=== PATIENT | female | born 1970 | race Two or more races ===

== ENCOUNTER 2020-06-07 14:09 | Outpatient (REF) | payer MEDICAID, SELFPAY ==
--- NOTE | 2020-06-07 15:30 | CT_ITS ---
EXAMINATION: CT ABDOMEN AND PELVIS WITHOUT CONTRAST CLINICAL INFORMATION: Left flank pain. Evaluate for stone. COMPARISON: Previous abdominal ultrasound August 2014 TECHNIQUE: Multidetector volumetric imaging was performed from the superior aspect of the liver through the pubic symphysis. Sagittal and coronal reformatted images were obtained on the technologist's workstation. This CT examination was performed using dose optimization techniques as appropriate, variously including the following: *Automated exposure control *Adjustment of mA and/or kV according to patient size (this includes techniques or standardized protocols for targeted exams where dose is matched to indication/reason for exam; i.e. extremities or head) *Use of iterative reconstruction technique DLP: 879 mGy-cm FINDINGS: LUNG BASES: The visualized lung bases are unremarkable. LIVER, GALLBLADDER, AND BILIARY TREE: The liver is slightly enlarged, right lobe measuring 21 cm in length. The liver is slightly low in attenuation suggestive of fatty infiltration. The liver is normal in contour. No focal liver lesion or biliary duct dilatation is seen. The gallbladder is unremarkable with no evidence of radiopaque gallstones, gallbladder wall thickening, or obvious pericholecystic inflammatory changes. PANCREAS: Unremarkable. SPLEEN: Unremarkable. ADRENAL GLANDS: Unremarkable. KIDNEYS AND URETERS: The kidneys are normal in size, shape, and attenuation. No hydronephrosis, hydroureter, or calculi seen. No perinephric stranding. BLADDER: Unremarkable. GASTROINTESTINAL TRACT: The small and large bowel are unremarkable. The appendix is unremarkable. ABDOMINAL WALL: There is a small umbilical hernia containing fat. LYMPH NODES: Normal. VASCULAR: Unremarkable. PELVIC VISCERA: Unremarkable. OSSEOUS STRUCTURES: Unremarkable. CT/CT abdomen pelvis wo con IMPRESSION: Slightly enlarged fatty liver. No stone seen.
== END 2020-06-07 14:10 | disposition home or self-care (01) ==
LOC: HO.CT 14:09
PROVIDERS: PCP Family Medicine; Visit Provider Nurse Practitioner Family
DX: R10.0 Acute abdomen (principal)
CPT/HCPCS: 74176

== ENCOUNTER 2020-10-26 15:21 | Outpatient (REF) | payer MEDICAID, SELFPAY | END 2020-10-26 15:22 | disposition home or self-care (01) | LOC: HO.HOSX 15:21 | PROVIDERS: Visit Provider Orthopaedic Surgery | DX: Z13.89 Encounter for screening for other disorder (principal) ==

== ENCOUNTER 2020-12-08 20:37 | Emergency (ER) | payer MEDICAID, SELFPAY ==
--- NOTE | ~2020-12-08 | CT_ITS ---
EXAMINATION: CT ANGIOGRAM OF THE CHEST WITH AND WITHOUT CONTRAST (CT PULMONARY ANGIOGRAM FOR PE) CLINICAL INFORMATION: Reason for Exam SOB, chest pain, elevated DDIMER COMPARISON: None TECHNIQUE: Prior to contrast administration, noncontrast localization images were obtained. Subsequently, multidetector volumetric imaging was performed from the thoracic inlet to below the diaphragms following the administration of 65 mL Omnipaque 350 intravenous contrast. No contrast reaction reported Sagittal, coronal, and MIP oblique sagittal reformatted images were obtained on the CT workstation, uploaded to PACS, and reviewed. This CT examination was performed using dose optimization techniques as appropriate, variously including the following: *Automated exposure control *Adjustment of mA and/or kV according to patient size (this includes techniques or standardized protocols for targeted exams where dose is matched to indication/reason for exam; i.e. extremities or head) *Use of iterative reconstruction technique Total exam dose-length product 593 mGy-cm FINDINGS: QUALITY OF STUDY/CONTRAST BOLUS: Satisfactory. PULMONARY ARTERIES: No central or segmental pulmonary emboli. THORACIC AORTA: No aneurysm or dissection. LUNG: No focal consolidation, nodules or masses. The central airways are patent. PLEURA: No pleural effusion or pneumothorax. MEDIASTINUM: Normal heart size. No pericardial effusion. No hilar or mediastinal lymphadenopathy. No evidence of septal bowing or right heart strain. CHEST WALL/AXILLA: No axillary or internal mammary lymphadenopathy. OSSEOUS STRUCTURES: No acute or suspicious osseous abnormality. UPPER ABDOMEN: Unremarkable. No reflux of contrast into the hepatic veins to suggest elevated right heart pressures. CT/CT angio chest PE protocol IMPRESSION: No pulmonary embolism or other acute intrathoracic abnormality. VTE: negative
--- NOTE | ~2020-12-08 | XR_ITS ---
EXAMINATION: XR CHEST CLINICAL INFORMATION: Chest pain COMPARISON: Chest 08/25/2015 TECHNIQUE: Frontal view of the chest was obtained. FINDINGS: No significant abnormality is noted involving the heart, lungs, mediastinum, bony thorax or soft tissues. XR/XR chest 1V IMPRESSION: Unremarkable chest examination. No change from 08/25/2015
--- NOTE | 2020-12-08 20:38 | ECG_ITS ---
Test Reason : CHEST PAIN Blood Pressure : / mmHG Vent. Rate : 105 BPM Atrial Rate : 105 BPM P-R Int : 142 ms QRS Dur : 086 ms QT Int : 330 ms P-R-T Axes : 035 026 007 degrees QTc Int : 436 ms Sinus tachycardia Otherwise normal ECG When compared with ECG of 21-SEP-2010 14:13, No significant change was found Referred By: Generic ED Physician Electronically Signed By:ARIC DENSON MD
[2020-12-08 20:54] LABS: MANUAL DIFF FLAG NO
[2020-12-08 20:56] VITALS: BP 122/84; PULSE 109; RESP 18; TEMP 36.7; O2SAT 98; BMI 52.5
[2020-12-08 20:58] LABS: Basophils Percent Auto 0.6 % (0-2); Eosinophils Absolute Auto 0.2 X10*3/uL (0.0-0.4); Eosinophils Percent Auto 3.4 % (0-4); Hematocrit 39.3 % (37-47); Hemoglobin 12.1 g/dl (12.0-16.0); Imm Gran Abs Auto 0.01 X10*3/uL (0.00-0.03); Imm Gran Pct Auto 0.2 % (0.0-0.4); Lymphocytes Absolute Auto 1.3 X10*3/uL (1.2-4.9); Lymphocytes Percent Auto 26.5 % (20-40); Mean Corpuscular HGB Conc 30.8 g/dl (31.0-35.0); Mean Corpuscular Hemoglobin 25.8 pg (27.0-33.0); Mean Corpuscular Volume 83.8 fL (80-98); Mean Platelet Volume 10.1 fL (9.4-12.3); Monocytes Absolute Auto 0.5 X10*3/uL (0.1-1.2); Monocytes Percent Auto 10.4 % (2-11); Neutrophils Absolute Auto 2.8 X10*3/uL (2.0-8.3); Neutrophils Percent Auto 58.9 % (45-73); Platelet Count 284 X10*3/uL (160-400); Red Blood Count 4.69 X10*6/uL (4.20-5.50); Red Cell Distribution Width 14.5 % (11.0-16.0); White Blood Count 4.7 X10*3/uL (4.8-10.8)
[2020-12-08 21:27] LABS: Anion Gap 14 (12-20); Blood Urea Nitrogen 16 mg/dL (9-16); Calcium 9.5 mg/dL (8.4-10.2); Carbon Dioxide 24 mmol/L (22-29); Chloride 103 mmol/L (96-108); Creatinine Clr Calc Pharmacy 90.9; Estimated Glomerular Filt Rate > 60; Glucose Random 250 mg/dL (60-115); Potassium 4.4 mmol/L (3.3-5.1); Sodium 137 mmol/L (135-145)
[2020-12-08 21:35] LABS: Troponin-I High Sensitivity < 3.5 ng/L (<3.5-17.0)
[2020-12-08 22:32] VITALS: BP 178/103; PULSE 111; RESP 20; O2SAT 96
[2020-12-09 00:42] VITALS: BP 142/84; PULSE 102; RESP 16; O2SAT 96
--- NOTE | 2020-12-09 00:58 | ED.CHESTPAIN ---
HPI - Chest Pain General Chief Complaint: Chest Pain <HANY Santos Last Filed: 12/09/20 01:53> Stated Complaint: chest pain <HANY Santos Last Filed: 12/09/20 01:53> Time Seen by Provider: 12/09/20 00:56 <HANY Santos Last Filed: 12/09/20 01:53> Source: patient <HANY Santos Last Filed: 12/09/20 01:53> Mode of arrival: ambulatory <HANY Santos Last Filed: 12/09/20 01:53> Limitations: no limitations <HANY Santos Last Filed: 12/09/20 01:53> History of Present Illness HPI narrative: 50 y/o female with history of morbid obesity, poorly controlled DM on insulin with polyneuropathy, HTN, asthma, arthritis who presents to the ED from [facility] with VERA and intermittent central non-radiating chest pain x2 weeks. She has some mild SOB at rest as well. She also reports intermittent headaches and dizziness. Her blood pressure has been elevated at home, as high as 180/120. She is compliant with her Lisinopril. She states she was supposed to be started on another agent but it was never sent to her pharmacy. She also reports her glucose has been 200-300 persistently at home despite compliance with Metformin and insulin. She has not been compliant with a diabetic diet and continues to be very overweight. She denies fever, chills, N/V, abdominal pain, leg pain. She had COVID last February and is now fully vaccinated. <HANY Santos - Last Filed: 12/09/20 01:53> MD complaint: chest pain <HANY Santos Last Filed: 12/09/20 01:53> Pertinent past history: asthma <HANY Santos - Last Filed: 12/09/20 01:53> Onset (ago): week(s) (2) <HANY Santos Last Filed: 12/09/20 01:53> Timing of current episode: episodic <HANY Santos Last Filed: 12/09/20 01:53> Prior episodes: Yes <HANY Santos - Last Filed: 12/09/20 01:53> Onset: during exertion <HANY Santos - Last Filed: 12/09/20 01:53> Pain location: substernal <HANY Santos Last Filed: 12/09/20 01:53> Pain radiation: none <HANY Santos - Last Filed: 12/09/20 01:53> Severity: moderate <HANY Santos - Last Filed: 12/09/20 01:53> Quality: aching <HANY Santos - Last Filed: 12/09/20 01:53> Relieving factors: rest <HANY Santos Last Filed: 12/09/20 01:53> Exacerbating factors: exertion and movement <HANY Santos - Last Filed: 12/09/20 01:53> Associated symptoms: dyspnea <HANY Santos - Last Filed: 12/09/20 01:53> Treatment prior to arrival: none <HANY Santos - Last Filed: 12/09/20 01:53> Risk Factors Coronary artery disease risk factors: diabetes, hyperlipidemia and hypertension <HANY Santos - Last Filed: 12/09/20 01:53> Thoracic aortic dissection risk factors: none <HANY Santos - Last Filed: 12/09/20 01:53> Pulmonary embolism risk factors: morbid obesity <HANY Santos Last Filed: 12/09/20 01:53> Related Data On Oral Contraceptives: No <HANY Santos - Last Filed: 12/09/20 01:53> Allergies/Adverse Reactions: Allergies Allergy/AdvReac Type Severity Reaction Status Date / Time No Known Allergies Allergy Verified 12/08/20 21:05 <HANY Santos - Last Filed: 12/09/20 01:53> Review of Systems Review of Systems: Constitutional: No Fever, No Chills ENT/Mouth: No sore throat, No Rhinorrhea, No Swallowing Difficulty Eyes: No Eye Pain, No Swelling, No Redness Cardiovascular: + Chest Pain, + SOB, No Orthopnea, No Edema Respiratory: No Cough, No Sputum, No Wheezing, + dyspnea Gastrointestinal: No Nausea, No Vomiting, No Diarrhea, No abdominal Pain Genitourinary: No Dysuria, No Urinary Frequency, No Hematuria Musculoskeletal: No joint pain, No Myalgias Skin: No Skin Lesions, No rash Neuro: No Weakness, No Numbness, + Dizziness, + Headache Psych: No Anxiety/Panic, No Depression Heme/Lymph: No Bruising, No Lymphadenopathy Endocrine: No Polyuria, No Polydipsia <HANY Santos - Last Filed: 12/09/20 01:53> [facility] Past Medical History Attestation statement: The following information was validated with the patient. <HANY Santos - Last Filed: 12/09/20 01:53> Medical History: Medical History Anxiety Arthritis associated with diabetes Asthma Carpal tunnel syndrome on both sides Depression Fibromyalgia Gastritis GERD (gastroesophageal reflux disease) Herniated disc HTN (hypertension) Migraine Sleep apnea Urinary incontinence <HANY Santos - Last Filed: 12/09/20 01:53> Surgical History: Surgical History (Updated 12/08/20 @ 21:04 by Kourtney Gomez) History of tubal ligation <HANY Santos - Last Filed: 12/09/20 01:53> Social History Social History: Social History Alcohol intake: never Smoking Status: Never smoker Use of substances other than those prescribed or required for medical reasons: No Advance Directives: No Advance Directives Information Provided: No Patient : No <HANY Santos - Last Filed: 12/09/20 01:53> Physical Exam Vital Signs: Vital Signs: Last Vital Signs Temp 98.0 F 12/08/20 20:56 Pulse 102 H 12/09/20 00:42 Resp 16 12/09/20 00:42 BP 142/84 H 12/09/20 00:42 Pulse Ox 96 12/09/20 00:42 Body Mass Index 52.5 Appearance: Alert. Oriented X3. No acute distress. Eyes: Pupils equal, round and reactive to light. ENT: Pharynx normal. Neck: Normal inspection. Neck supple. CVS: Normal heart rate and rhythm. Pulses normal. No chest wall tenderness Respiratory: No respiratory distress. Breath sounds diminished at the bases but otherwise clear Abdomen: Obese, Soft and nontender. +BS x4 Skin: Skin warm and dry. Normal skin color. Normal skin turgor. No rashes. Extremities: No lower extremity edema. Negative Tatum's sign. Neuro: Oriented X 3. No motor deficit. No sensory deficit. <HANY Santos - Last Filed: 12/09/20 01:53> Vital Signs: Last Vital Signs Temp 98.0 F 12/08/20 20:56 Pulse 102 H 12/09/20 00:42 Resp 16 12/09/20 00:42 BP 142/84 H 12/09/20 00:42 Pulse Ox 96 12/09/20 00:42 Body Mass Index 52.5 <Huong Lawson MD - Last Filed: 12/09/20 03:35> Course Course Course Narrative: 50 y/o female with multiple comorbidities presenting with SOB and chest pain x2 weeks along with high blood pressure, headaches, and dizziness. Tachycardic to 109 on arrival with BP 120-140's systolic. Her EKG is unremarkbale and troponin is negative. Mild current chest pain and SOB at rest at this time, appears comfortable. No distress. Will check DDIMER as there is concern for PE. BNP added as well. Dispo pending results. <HANY Santos - Last Filed: 12/09/20 01:53> I received sign-out from HANY Boo. Patient has no pain at rest, only when she presses on her chest. Patient's pain is likely musculoskeletal CT scan for PE is negative. Patient is being discharged home, patient is to follow-up with her primary care physician for <Huong Lawson MD - Last Filed: 12/09/20 03:35> Reevaluation(s) Reevaluation #1: DDIMER elevated 831. Will proceed with CTA chest to r/o PE. Will also get COVID swab, liklihood is low given she is fully vaccinated. Signed out to Dr. Lawson who will f/u results. <HANY Santos - Last Filed: 12/09/20 01:53> MDM - Chest Pain Medical Records Data Attestation: I reviewed the patient's medical records. <HANY Santos - Last Filed: 12/09/20 01:53> Lab Data Attestation: I reviewed the patient's lab results. <HANY Santos - Last Filed: 12/09/20 01:53> Result diagrams: : 12/08/20 20:49 12/08/20 20:49 <HANY Santos - Last Filed: 12/09/20 01:53> Labs: Lab Results 12/08/20 12/08/20 12/08/20 Range/Units 20:49 20:49 20:49 WBC 4.7 L (4.8-10.8) X10*3/uL RBC 4.69 (4.20-5.50) X10*6/uL Hgb 12.1 (12.0-16.0) g/dl Hct 39.3 (37-47) % MCV 83.8 (80-98) fL MCH 25.8 L (27.0-33.0) pg MCHC 30.8 L (31.0-35.0) g/dl RDW 14.5 (11.0-16.0) % Plt Count 284 (160-400) X10*3/uL MPV 10.1 (9.4-12.3) fL Immature Gran % (Auto) 0.2 (0.0-0.4) % Neut % (Auto) 58.9 (45-73) % Lymph % (Auto) 26.5 (20-40) % [place] % (Auto) 10.4 (2-11) % Eos % (Auto) 3.4 (0-4) % Baso % (Auto) 0.6 (0-2) % Lymph # (Auto) 1.3 (1.2-4.9) X10*3/uL [place] # (Auto) 0.5 (0.1-1.2) X10*3/uL Eos # (Auto) 0.2 (0.0-0.4) X10*3/uL Baso # (Auto) 0.0 (0.0-0.2) X10*3/uL Abs Immat Gran (auto) 0.01 (0.00-0.03) X10*3/uL Absolute Neuts (auto) 2.8 (2.0-8.3) X10*3/uL Absolute Nucleated RBC 0.000 (0.0-0.012) X10*3/uL Nucleated RBC % (auto) 0.0 (0.0-0.2) /100WBC D-Dimer 831 NG/ML Hold Blue Top SEE NOTE Sodium 137 (135-145) mmol/L Potassium 4.4 (3.3-5.1) mmol/L Chloride 103 (96-108) mmol/L Carbon Dioxide 24 (22-29) mmol/L Anion Gap 14 (12-20) BUN 16 (9-16) mg/dL Creatinine 0.87 (0.5-1.4) mg/dL Estim Creat Clear Calc 90.9 Estimated GFR > 60 Random Glucose 250 H (60-115) mg/dL Calcium 9.5 (8.4-10.2) mg/dL Troponin I High Sens (<3.5-17.0) ng/L COVID-19 (ANGI) (Negative) COVID-19 Clin Com 12/08/20 12/09/20 Range/Units 20:49 01:35 WBC (4.8-10.8) X10*3/uL RBC (4.20-5.50) X10*6/uL Hgb (12.0-16.0) g/dl Hct (37-47) % MCV (80-98) fL MCH (27.0-33.0) pg MCHC (31.0-35.0) g/dl RDW (11.0-16.0) % Plt Count (160-400) X10*3/uL MPV (9.4-12.3) fL Immature Gran % (Auto) (0.0-0.4) % Neut % (Auto) (45-73) % Lymph % (Auto) (20-40) % [place] % (Auto) (2-11) % Eos % (Auto) (0-4) % Baso % (Auto) (0-2) % Lymph # (Auto) (1.2-4.9) X10*3/uL [place] # (Auto) (0.1-1.2) X10*3/uL Eos # (Auto) (0.0-0.4) X10*3/uL Baso # (Auto) (0.0-0.2) X10*3/uL Abs Immat Gran (auto) (0.00-0.03) X10*3/uL Absolute Neuts (auto) (2.0-8.3) X10*3/uL Absolute Nucleated RBC (0.0-0.012) X10*3/uL Nucleated RBC % (auto) (0.0-0.2) /100WBC D-Dimer NG/ML Hold Blue Top Sodium (135-145) mmol/L Potassium (3.3-5.1) mmol/L Chloride (96-108) mmol/L Carbon Dioxide (22-29) mmol/L Anion Gap (12-20) BUN (9-16) mg/dL Creatinine (0.5-1.4) mg/dL Estim Creat Clear Calc Estimated GFR Random Glucose (60-115) mg/dL Calcium (8.4-10.2) mg/dL Troponin I High Sens < 3.5 (<3.5-17.0) ng/L COVID-19 (ANGI) Negative (Negative) COVID-19 Clin Com See Note <HANY Santos - Last Filed: 12/09/20 01:53> Lab Results 12/08/20 12/08/20 12/08/20 Range/Units 20:49 20:49 20:49 WBC 4.7 L (4.8-10.8) X10*3/uL RBC 4.69 (4.20-5.50) X10*6/uL Hgb 12.1 (12.0-16.0) g/dl Hct 39.3 (37-47) % MCV 83.8 (80-98) fL MCH 25.8 L (27.0-33.0) pg MCHC 30.8 L (31.0-35.0) g/dl RDW 14.5 (11.0-16.0) % Plt Count 284 (160-400) X10*3/uL MPV 10.1 (9.4-12.3) fL Immature Gran % (Auto) 0.2 (0.0-0.4) % Neut % (Auto) 58.9 (45-73) % Lymph % (Auto) 26.5 (20-40) % [place] % (Auto) 10.4 (2-11) % Eos % (Auto) 3.4 (0-4) % Baso % (Auto) 0.6 (0-2) % Lymph # (Auto) 1.3 (1.2-4.9) X10*3/uL [place] # (Auto) 0.5 (0.1-1.2) X10*3/uL Eos # (Auto) 0.2 (0.0-0.4) X10*3/uL Baso # (Auto) 0.0 (0.0-0.2) X10*3/uL Abs Immat Gran (auto) 0.01 (0.00-0.03) X10*3/uL Absolute Neuts (auto) 2.8 (2.0-8.3) X10*3/uL Absolute Nucleated RBC 0.000 (0.0-0.012) X10*3/uL Nucleated RBC % (auto) 0.0 (0.0-0.2) /100WBC D-Dimer 831 NG/ML Hold Blue Top SEE NOTE Sodium 137 (135-145) mmol/L Potassium 4.4 (3.3-5.1) mmol/L Chloride 103 (96-108) mmol/L Carbon Dioxide 24 (22-29) mmol/L Anion Gap 14 (12-20) BUN 16 (9-16) mg/dL Creatinine 0.87 (0.5-1.4) mg/dL Estim Creat Clear Calc 90.9 Estimated GFR > 60 Random Glucose 250 H (60-115) mg/dL Calcium 9.5 (8.4-10.2) mg/dL Troponin I High Sens (<3.5-17.0) ng/L COVID-19 (ANGI) (Negative) COVID-19 Clin Com 12/08/20 12/09/20 Range/Units 20:49 01:35 WBC (4.8-10.8) X10*3/uL RBC (4.20-5.50) X10*6/uL Hgb (12.0-16.0) g/dl Hct (37-47) % MCV (80-98) fL MCH (27.0-33.0) pg MCHC (31.0-35.0) g/dl RDW (11.0-16.0) % Plt Count (160-400) X10*3/uL MPV (9.4-12.3) fL Immature Gran % (Auto) (0.0-0.4) % Neut % (Auto) (45-73) % Lymph % (Auto) (20-40) % [place] % (Auto) (2-11) % Eos % (Auto) (0-4) % Baso % (Auto) (0-2) % Lymph # (Auto) (1.2-4.9) X10*3/uL [place] # (Auto) (0.1-1.2) X10*3/uL Eos # (Auto) (0.0-0.4) X10*3/uL Baso # (Auto) (0.0-0.2) X10*3/uL Abs Immat Gran (auto) (0.00-0.03) X10*3/uL Absolute Neuts (auto) (2.0-8.3) X10*3/uL Absolute Nucleated RBC (0.0-0.012) X10*3/uL Nucleated RBC % (auto) (0.0-0.2) /100WBC D-Dimer NG/ML Hold Blue Top Sodium (135-145) mmol/L Potassium (3.3-5.1) mmol/L Chloride (96-108) mmol/L Carbon Dioxide (22-29) mmol/L Anion Gap (12-20) BUN (9-16) mg/dL Creatinine (0.5-1.4) mg/dL Estim Creat Clear Calc Estimated GFR Random Glucose (60-115) mg/dL Calcium (8.4-10.2) mg/dL Troponin I High Sens < 3.5 (<3.5-17.0) ng/L COVID-19 (ANGI) Negative (Negative) COVID-19 Clin Com See Note <Huong Lawson MD - Last Filed: 12/09/20 03:35> ECG Data ECG #1: Attestation: I personally reviewed and interpreted this ECG as follows: <HANY Santos - Last Filed: 12/09/20 01:53> ECG interpretation date: 12/09/20 <HANY Santos - Last Filed: 12/09/20 01:53> ECG interpretation time: 01:24 <HANY Santos Last Filed: 12/09/20 01:53> Prior ECG tracings: available for review <HANY Santos - Last Filed: 12/09/20 01:53> Interpretation: sinus tachycardia, HR 105 bpm, normal TN inteval, normal QRS, isolated t-wave inversions in lead III, no ST segment elevations. no significant changes from prior EKG in 2010 <HANY Santos - Last Filed: 12/09/20 01:53> Scores Heart Score History: -1- moderately suspicious <HANY Santos - Last Filed: 12/09/20 01:53> ECG: -0- normal <HANY Santos Last Filed: 12/09/20 01:53> Age: -1- >45 - <65 <HANY Santos Last Filed: 12/09/20 01:53> Risk factory: -2- 3 or more risk factors or treated atherosclerosis <HANY Santos - Last Filed: 12/09/20 01:53> Troponin: -0- < or = normal limit <HANY Santos - Last Filed: 12/09/20 01:53> Score: 4 <HANY Santos - Last Filed: 12/09/20 01:53> Risk: 16.6% <HANY Santos - Last Filed: 12/09/20 01:53> Wells PE Heart rate > 100 p/min: 1.5 <HANY aSntos - Last Filed: 12/09/20 01:53> Score: 1.5 <HANY Santos - Last Filed: 12/09/20 01:53> 2-tier Risk: unlikely risk (5%) <HANY Santos - Last Filed: 12/09/20 01:53> 3-tier Risk: low risk (3.4%) <HANY Santos - Last Filed: 12/09/20 01:53> Discharge Plan Discharge Clinical Impression: Dyspnea, Atypical chest pain <HANY Santos - Last Filed: 12/09/20 01:53> Patient Disposition: Home, Self-Care <HANY Santos - Last Filed: 12/09/20 01:53> Instructions: Chest Pain (ED) <HANY Santos - Last Filed: 12/09/20 01:53> Additional Instructions: Please follow-up with your primary care physician tomorrow. Is likely that you will need a stress test if you continue having the symptoms. If you have any worsening or new symptoms, please return to the emergency room or call 911 <HANY Santos - Last Filed: 12/09/20 01:53>
[2020-12-09 01:13] LABS: D Dimer 831 NG/ML
[2020-12-09 01:55] LABS: COVID-19 Test Negative (Negative); IDNOW Serial# 9DD0AD1C
[2020-12-09] MEDS: iohexoL 350 MG/ML 100 ML INFUS..BTL 65 ML IV (02:12)
== END 2020-12-09 03:44 | disposition home or self-care (01) ==
PROVIDERS: Physician Assistant; Emergency Provider Emergency Medicine; PCP Family Medicine
DX: R06.00 Dyspnea, unspecified (principal); R07.89 Other chest pain; Z20.822 Contact with and (suspected) exposure to COVID-19; J45.909 Unspecified asthma, uncomplicated; I10 Essential (primary) hypertension; E11.9 Type 2 diabetes mellitus without complications; Z79.4 Long term (current) use of insulin
CPT/HCPCS: 36415; 71045; 71275; 80048; 84484; 85025; 85379; 87635; 93005; 99284; Q9967

== ENCOUNTER 2020-12-21 07:40 | Outpatient (REF) | payer MEDICAID, SELFPAY | END 2020-12-21 07:41 | disposition home or self-care (01) | LOC: HO.HOSX 07:40 | PROVIDERS: Visit Provider Orthopaedic Surgery | DX: Z13.89 Encounter for screening for other disorder (principal) ==

== ENCOUNTER → 2021-02-03 09:06 | Outpatient (BNVA) | payer MEDICAID, SELFPAY | PROVIDERS: PCP Family Medicine; Visit Provider Physician Assistant ==

== ENCOUNTER 2021-03-08 14:12 | Outpatient (REF) | payer MEDICAID, SELFPAY ==
--- NOTE | ~2021-03-08 | MM_ITS ---
EXAMINATION: MM SCREENING DIGITAL BREAST TOMOSYNTHESIS, BILATERAL CLINICAL INFORMATION: Screening. Asymptomatic. The lifetime risk of breast cancer based on the Tyrer-Cuzick Model is 12%. COMPARISON: Mammography: 07/03/2019, 01/25/2017, 06/22/2014 TECHNIQUE: Digital breast tomosynthesis is performed in both the craniocaudal and mediolateral oblique views along with computer-aided detection (CAD). Synthesized 2D images are generated from the tomosynthesis. Additional views are provided: Right CC, right MLO x2, left CC x2, left MLO. FINDINGS: There are scattered areas of fibroglandular density (ACR BI-RADS breast composition Category b). Breast tissue composition borders on predominantly fatty. Background stromal markings are stable. There is no developing density or interval mass or architectural abnormality. Again, there are scattered bilateral benign round and rim calcifications greatest in the upper outer quadrants. The axilla and skin contours are unremarkable. There are grouped fine calcifications mid to posterior 5:00 right breast 12 cm from nipple likely early vascular. Patient will be recalled to further characterize this group. MM/MM tomosynthesis screening BI IMPRESSION: 1. Right: Fine grouped calcifications 5:00 position mid to posterior depth, possibly vascular. 2. Left: No mammographic evidence of malignancy. ASSESSMENT: BI-RADS 0: Incomplete - Need Additional Imaging Evaluation RECOMMENDATION: 1. Additional views of the right breast (magnification CC, magnification LM). 2. Radiology department staff will contact the patient for additional imaging. This patient's information was entered into a reminder system with a target due date for their next mammogram.
== END 2021-03-08 14:13 | disposition home or self-care (01) ==
LOC: HO.MAMMO 14:12
PROVIDERS: Visit Provider Family Medicine
DX: Z12.31 Encounter for screening mammogram for malignant neoplasm of breast (principal)
CPT/HCPCS: 77063; 77067

== ENCOUNTER 2021-03-10 08:22 | Outpatient (REF) | payer MEDICAID, SELFPAY ==
--- NOTE | ~2021-03-10 | MM_ITS ---
EXAMINATION: MM DIAGNOSTIC DIGITAL MAMMOGRAPHY, RIGHT CLINICAL INFORMATION: Calcifications inferior medial aspect. COMPARISON: Mammography: March 08, 2021 and studies dating back to June 22, 2014 TECHNIQUE: Digital mammography is performed in the following views: Right breast spot magnification views in craniocaudal and 90 degree mediolateral views. FINDINGS: There are scattered areas of fibroglandular density (ACR BI-RADS breast composition Category b). The calcifications appear to be similar in appearance to study of July 03, 2019 and were present to some degree in January 25, 2017 but difficult to compare due to technique. Recommend 6 month follow-up magnification views of the right breast. Results are discussed with the patient at time of visit. MM/MM added views RT IMPRESSION: Probable benign calcifications inferior medial aspect of the right breast for which 6 month follow-up study is recommended. ASSESSMENT: BI-RADS 3: Probably Benign RECOMMENDATION: Diagnostic mammography in 6 months. This patient's information was entered into a reminder system with a target due date for their next mammogram.
== END 2021-03-10 08:23 | disposition home or self-care (01) ==
LOC: HO.MAMMO 08:22
PROVIDERS: PCP Family Medicine; Visit Provider Family Medicine
DX: R92.1 Mammographic calcification found on diagnostic imaging of breast (principal)
CPT/HCPCS: 77065

== ENCOUNTER → 2021-05-05 11:03 | Outpatient (BNVA) | payer MEDICAID, SELFPAY | PROVIDERS: PCP Family Medicine; Visit Provider Nurse Practitioner Gerontology | DX: E11.65 Type 2 diabetes mellitus with hyperglycemia (principal); E78.5 Hyperlipidemia, unspecified; E66.09 Other obesity due to excess calories; I10 Essential (primary) hypertension; Z79.4 Long term (current) use of insulin | CPT/HCPCS: 82947; 83036; 99212 ==

== ENCOUNTER 2021-05-06 12:36 | Outpatient (REF) | payer MEDICAID, SELFPAY ==
[2021-05-06 15:08] LABS: MANUAL DIFF FLAG NO
[2021-05-06 15:17] LABS: Basophils Percent Auto 0.4 % (0-2); Eosinophils Absolute Auto 0.1 X10*3/uL (0.0-0.4); Eosinophils Percent Auto 2.1 % (0-4); Hematocrit 35.7 % (37-47); Hemoglobin 11.2 g/dl (12.0-16.0); Imm Gran Abs Auto 0.01 X10*3/uL (0.00-0.03); Imm Gran Pct Auto 0.2 % (0.0-0.4); Lymphocytes Absolute Auto 1.6 X10*3/uL (1.2-4.9); Lymphocytes Percent Auto 30.5 % (20-40); Mean Corpuscular HGB Conc 31.4 g/dl (31.0-35.0); Mean Corpuscular Hemoglobin 24.7 pg (27.0-33.0); Mean Corpuscular Volume 78.8 fL (80-98); Mean Platelet Volume 9.6 fL (9.4-12.3); Monocytes Absolute Auto 0.4 X10*3/uL (0.1-1.2); Monocytes Percent Auto 8.4 % (2-11); Neutrophils Percent Auto 58.4 % (45-73); Platelet Count 328 X10*3/uL (160-400); Red Blood Count 4.53 X10*6/uL (4.20-5.50); Red Cell Distribution Width 14.6 % (11.0-16.0); White Blood Count 5.1 X10*3/uL (4.8-10.8)
[2021-05-06 15:33] LABS: Alanine Aminotransferase 22 U/L (0-31); Alkaline Phosphatase 153 U/L (39-117); Anion Gap 16 (12-20); Aspartate Amino Transferase 16 U/L (5-31); Bilirubin Total 0.3 mg/dL (0.0-1.0); Blood Urea Nitrogen 23 mg/dL (9-16); C Reactive Protein 4.85 mg/dL (< or = 0.50); Calcium 9.5 mg/dL (8.4-10.2); Carbon Dioxide 23 mmol/L (22-29); Chloride 106 mmol/L (96-108); Cholesterol 126 mg/dL; Estimated Glomerular Filt Rate > 60; Glucose Fasting 204 mg/dL (60-99); HDL Cholesterol 37 mg/dL; Iron 43 mcg/dL (30-160); LDL Cholesterol Calculated 63 mg/dl; Percent Iron Saturation 12 % (15-50); Potassium 4.8 mmol/L (3.3-5.1); Sodium 140 mmol/L (135-145); Total Iron Binding Capacity 360 mcg/dL (228-428); Total Protein 8.4 g/dL (6.5-8.0); Triglycerides 130 mg/dL; Unsaturated Iron Binding 317 ug/dL
[2021-05-06 15:54] LABS: Ferritin 66 ng/mL (10-250); Insulin 39 uU/mL (2-29); TSH reflex Free T4 1.24 uIU/mL (0.32-4.0); Vitamin D 25-OH Total 14.4 ng/mL (>30)
[2021-05-06 16:03] LABS: Folate 7.4 ng/mL (> or = 4.0); Vitamin B12 249 pg/mL (200-900)
[2021-05-07 06:08] LABS: Estimated Average Glucose 177 mg/dL; Hemoglobin A1c % 7.8 %
[2021-05-07 16:32] LABS: LDL Cholesterol Direct 59 mg/dL (<100)
[2021-05-10 16:01] LABS: Calcium (PTHI) 9.3 mg/dL (8.6-10.4); PTHI 56 pg/mL (14-64)
[2021-05-11 04:51] LABS: Vitamin A 51 mcg/dL (38-98)
[2021-05-11 06:21] LABS: Zinc 84 mcg/dL (60-130)
[2021-05-11 13:27] LABS: Vitamin B1 8 nmol/L (8-30)
== END 2021-05-06 12:37 | disposition home or self-care (01) ==
LOC: HO.LAB 12:36
PROVIDERS: Nurse Practitioner Gerontology; PCP Family Medicine; Referring Provider Family Medicine; Visit Provider Physician Assistant
DX: E66.01 Morbid (severe) obesity due to excess calories (principal); K29.70 Gastritis, unspecified, without bleeding; E78.5 Hyperlipidemia, unspecified; I10 Essential (primary) hypertension; E11.65 Type 2 diabetes mellitus with hyperglycemia; Z71.3 Dietary counseling and surveillance; Z79.4 Long term (current) use of insulin; Z62.810 Personal history of physical and sexual abuse in childhood; Z68.43 Body mass index [BMI] 50.0-59.9, adult
CPT/HCPCS: 36415; 80053; 80061; 82306; 82607; 82728; 82746; 83036; 83525; 83540; 83721; 83970; 84425; 84443; 84590; 84630; 85025; 86140; 99202

== ENCOUNTER → 2021-05-23 12:19 | Outpatient (BNVA) | payer MEDICAID, SELFPAY | PROVIDERS: PCP Family Medicine; Visit Provider Dietitian, Registered | DX: E11.65 Type 2 diabetes mellitus with hyperglycemia (principal); Z79.4 Long term (current) use of insulin | CPT/HCPCS: 97802; 99281; 99282 ==

== ENCOUNTER 2021-05-23 14:13 | Emergency (ER) | payer MEDICAID, SELFPAY ==
[2021-05-23 14:19] VITALS: BP 134/85; PULSE 114; RESP 16; TEMP 36.9; O2SAT 96; BMI 50.3
--- NOTE | 2021-05-23 17:26 | PC.NURSE ---
CALLED [id number] NOT IN [facility]. LWT.
== END 2021-05-23 17:23 | disposition left against medical advice (07) ==
PROVIDERS: Emergency Provider Emergency Medicine; PCP Family Medicine
DX: M79.89 Other specified soft tissue disorders (principal)
CPT/HCPCS: 99281; 99282

== ENCOUNTER 2021-05-26 15:53 | Emergency (ER) | payer MEDICAID, SELFPAY ==
--- NOTE | ~2021-05-26 | XR_ITS ---
EXAMINATION: RIGHT ANKLE AND RIGHT ELBOW CLINICAL INFORMATION: Fall with pain COMPARISON: November 23, 2009 TECHNIQUE: Three-view left ankle and 4 view left elbow FINDINGS: 3 views of the left ankle do not demonstrate any evidence of acute fracture or dislocation. Ankle mortise appears intact. There is some soft tissue swelling seen about the lateral malleolus and lateral aspect of the foot. Small calcaneal spurs sites of insertion of Achilles and plantar tendons are seen. There are vascular calcifications present. There is no evidence of dislocation of the right elbow. Spurring from lateral epicondylitis is present. There is question of a minimal effusion however no definite radial head abnormality is seen and no other fracture is appreciated. XR/XR elbow RT min 3V IMPRESSION: No significant bony abnormality of the left ankle identified. Calcaneal spurs. No definite acute fracture or dislocation of the right elbow but with question borderline effusion. Findings consistent with lateral epicondylitis.
--- NOTE | ~2021-05-26 | XR_ITS ---
EXAMINATION: RIGHT ANKLE AND RIGHT ELBOW CLINICAL INFORMATION: Fall with pain COMPARISON: November 23, 2009 TECHNIQUE: Three-view left ankle and 4 view left elbow FINDINGS: 3 views of the left ankle do not demonstrate any evidence of acute fracture or dislocation. Ankle mortise appears intact. There is some soft tissue swelling seen about the lateral malleolus and lateral aspect of the foot. Small calcaneal spurs sites of insertion of Achilles and plantar tendons are seen. There are vascular calcifications present. There is no evidence of dislocation of the right elbow. Spurring from lateral epicondylitis is present. There is question of a minimal effusion however no definite radial head abnormality is seen and no other fracture is appreciated. XR/XR ankle LT min 3V IMPRESSION: No significant bony abnormality of the left ankle identified. Calcaneal spurs. No definite acute fracture or dislocation of the right elbow but with question borderline effusion. Findings consistent with lateral epicondylitis.
[2021-05-26 16:00] VITALS: BP 137/65; PULSE 110; RESP 18; O2SAT 97; BMI 50.3
--- NOTE | 2021-05-26 17:18 | ED_ITS ---
HPI - General Adult General Chief complaint: Fall Stated complaint: pain from fall days ago Time Seen by Provider: 05/26/21 17:00 Source: patient Mode of arrival: ambulatory Limitations: no limitations History of Present Illness HPI narrative: Patient fell done coming out of the apartment 4 stairs 5 days ago had a mechanical fall complaining of pain in the left ankle with slight swelling increase on ambulation also complaining of pain in the right elbow no head injury no loss of consciousness patient does have dizziness off and on and was feeling dizzy prior to fall at this time no dizziness no head injury no neck pain Related Data Home Medications Medication Instructions Recorded Confirmed amitriptyline 75 mg tablet 75 mg PO BEDTIME 05/05/21 05/05/21 aspirin 81 mg tablet,delayed 81 mg PO DAILY 05/05/21 05/05/21 release (Adult Low Dose Aspirin) atorvastatin 40 mg tablet 40 mg PO BEDTIME 05/05/21 05/05/21 blood-glucose meter (FreeStyle 05/05/21 05/05/21 Lite Meter) citalopram 40 mg tablet 40 mg PO DAILY 05/05/21 05/05/21 clonazepam 1 mg tablet 1 mg PO DAILY PRN 05/05/21 05/05/21 docusate sodium 100 mg capsule 100 mg PO DAILY PRN 05/05/21 05/05/21 gabapentin 400 mg capsule 400 mg PO BID 05/05/21 05/05/21 hydroxyzine HCl 50 mg tablet 50 mg PO BID PRN 05/05/21 05/05/21 insulin lispro 100 unit/mL 10 unit SUBCUT TID 05/05/21 05/05/21 subcutaneous pen (Humalog KwikPen (U-100) Insulin) lisinopril 40 mg tablet 40 mg PO DAILY 05/05/21 05/05/21 loratadine 10 mg tablet (Allergy 10 mg PO DAILY 05/05/21 05/05/21 Relief (loratadine)) metformin 1,000 mg tablet,extended 1,000 mg PO BID 05/05/21 05/05/21 release 24hr nabumetone 500 mg tablet 500 mg PO BID 05/05/21 05/05/21 oxcarbazepine 300 mg tablet 300 mg PO BID 05/05/21 05/05/21 (Trileptal) pantoprazole 40 mg granules 40 mg PO DAILY 05/05/21 05/05/21 delayed-release for susp in packet (Protonix) prazosin 2 mg capsule 2 mg PO BEDTIME 05/05/21 05/05/21 quetiapine 300 mg tablet (Seroquel) 300 mg PO BEDTIME 05/05/21 05/05/21 topiramate 50 mg tablet 50 mg PO BID 05/05/21 05/05/21 Previous Rx's Medication Instructions Recorded pantoprazole 40 mg tablet,delayed 40 mg PO DAILY 30 Days #30 tab 02/04/21 release blood sugar diagnostic (FreeStyle #150 ea 05/05/21 Lite Strips) dulaglutide 1.5 mg/0.5 mL 1.5 mg SUBCUT QWEEK 28 Days #2 ml 05/05/21 subcutaneous pen injector (Trulicity) cholecalciferol (vitamin D3) 50 50 mcg PO DAILY #30 cap 05/10/21 mcg (2,000 unit) capsule cyanocobalamin (vitamin B-12) 500 500 mcg PO DAILY #30 tab 05/10/21 mcg tablet ferrous sulfate 325 mg (65 mg 325 mg PO DAILY #30 tab 05/10/21 iron) tablet insulin glargine 100 unit/mL (3 35 unit SUBCUT QPM 30 Days #10.5 ml 05/13/21 mL) subcutaneous pen (Lantus Solostar U-100 Insulin) tramadol 50 mg tablet 50 mg PO Q6H PRN #20 tab 05/26/21 Allergies Allergy/AdvReac Type Severity Reaction Status Date / Time No Known Allergies Allergy Verified 05/26/21 15:59 Review of Systems Review of Systems: Yes all other systems are reviewed and are negative [facility] Past Medical History Medical History Anxiety Arthritis associated with diabetes Asthma Carpal tunnel syndrome on both sides Depression DM2 (diabetes mellitus, type 2) Fibromyalgia Gastritis GERD (gastroesophageal reflux disease) Herniated disc HLD (hyperlipidemia) HTN (hypertension) Migraine Obesity due to excess calories Sleep apnea Urinary incontinence Surgical History History of carpal tunnel release History of tubal ligation Family History Family History Father Rheumatoid arthritis Mother No problems noted. Social History Social History Household Members: None Alcohol intake: never Advance Directives: No Advance Directives Information Provided: Yes Patient : No Physical Exam Vital Signs: Vital Signs: Last Vital Signs Temp 97.9 F 05/26/21 17:53 Pulse 96 05/26/21 17:53 Resp 16 05/26/21 17:53 BP 121/74 05/26/21 17:53 Pulse Ox 97 05/26/21 17:53 Body Mass Index 50.3 Const: General: no acute distress and well developed Orientation/c onsciousness: patient oriented x3 HENMT: Head: Yes normocephalic and Yes atraumatic Eyes: General: appearance normal, both eyes and all related structures Neck: Neck: Yes full ROM and No tender Resp: Effort & Inspection: normal respiratory effort Auscultation: clear to auscultation bilaterally Cardio: Rate: regular rate Rhythm: regular rhythm GI: Inspection: Yes normal to inspection Palpation (GI): Soft to palpation and nontender : General: Yes no CVA tenderness Back/Spine/Pelvis: Back: no CVA tenderness Cervical Spine: Cervical spine tenderness Thoracic/Lumbar Spine: No thoraco-lumbar spasm, No thoracic spinal tenderness and No lumbar spinal tenderness Neuro: General: patient oriented x3 Extrem: General: Yes full ROM Shoulder/upper arm images: 1. Mild tenderness lateral epicondyle area painful full flexion and external rotation neurovascular intact Ankle/foot/toe images: 1. Soft tissue swelling lateral malleolus with tenderness no deformity neurovascular intact Medical Decision Making MDM Narrative Medical decision making narrative: Patient's x-ray negative for right elbow and left ankle. Still has pain in the lateral epicondyle area will give her a sling given the ankle boot pain medication advised to rest to both right elbow and left ankle Discharge Plan Discharge Clinical Impression: Contracture of right elbow Ankle sprain Qualifiers: Encounter type: initial encounter Involved ligament of ankle: unspecified ligament Laterality: left Qualified Code(s): S93.402A - Sprain of unspecified ligament of left ankle, initial encounter Patient Disposition: Home, Self-Care Instructions: Ankle Sprain (ED), Contusion in Adults (ED) Additional Instructions: Rest to your left ankle and right elbow Wear the sling and boot for support Pain medication as advised Prescriptions: New tramadol 50 mg tablet 50 mg PO Q6H PRN (Reason: pain) Qty: 20 RF: 0 No Action pantoprazole 40 mg tablet,delayed release (DR/EC) 40 mg PO DAILY 30 Days Qty: 30 RF: 2 cholecalciferol (vitamin D3) 50 mcg (2,000 unit) capsule 50 mcg PO DAILY Qty: 30 RF: 6 cyanocobalamin (vitamin B-12) 500 mcg tablet 500 mcg PO DAILY Qty: 30 RF: 6 ferrous sulfate 325 mg (65 mg iron) tablet 325 mg PO DAILY Qty: 30 RF: 6 Lantus Solostar U-100 Insulin 100 unit/mL (3 mL) insulin pen 35 unit subcut QPM 30 Days Qty: 10.5 RF: 6 metformin 1,000 mg tablet extended release 24hr 1,000 mg PO BID RF: 0 (DME) blood-glucose meter [FreeStyle Lite Meter] Kit See Rx Instructions .Route RF: 0 quetiapine [Seroquel] 300 mg tablet 300 mg PO BEDTIME RF: 0 amitriptyline 75 mg tablet 75 mg PO BEDTIME RF: 0 prazosin 2 mg capsule 2 mg PO BEDTIME RF: 0 gabapentin 400 mg capsule 400 mg PO BID RF: 0 atorvastatin 40 mg tablet 40 mg PO BEDTIME RF: 0 aspirin [Adult Low Dose Aspirin] 81 mg tablet,delayed release (DR/EC) 81 mg PO DAILY RF: 0 loratadine [Allergy Relief (loratadine)] 10 mg tablet 10 mg PO DAILY RF: 0 lisinopril 40 mg tablet 40 mg PO DAILY RF: 0 topiramate 50 mg tablet 50 mg PO BID RF: 0 oxcarbazepine [Trileptal] 300 mg tablet 300 mg PO BID RF: 0 clonazepam 1 mg tablet 1 mg PO DAILY PRNRF: 0 nabumetone 500 mg tablet 500 mg PO BID RF: 0 pantoprazole [Protonix] [address] for susp in packet 40 mg PO DAILY RF: 0 citalopram 40 mg tablet 40 mg PO DAILY RF: 0 insulin lispro [Humalog KwikPen Insulin] 100 unit/mL insulin pen 10 unit subcut TID RF: 0 docusate sodium 100 mg capsule 100 mg PO DAILY PRNRF: 0 hydroxyzine HCl 50 mg tablet 50 mg PO BID PRNRF: 0 Trulicity 1.5 mg/0.5 mL pen injector 1.5 mg subcut QWEEK 28 Days Qty: 2 RF: 6 (DME) FreeStyle Lite Strips Strip See Rx Instructions .Route Qty: 150 RF: 11
--- NOTE | 2021-05-26 17:29 | PC.NURSE ---
MD CARVALHO SAID HE DOES NOT NEED EKG
[2021-05-26] MEDS: traMADoL HCL 50 MG TABLET PO (17:49)
[2021-05-26 17:53] VITALS: BP 121/74; PULSE 96; RESP 16; TEMP 36.6; O2SAT 97
== END 2021-05-26 18:09 | disposition home or self-care (01) ==
LOC: HO.ED 18:01
PROVIDERS: Emergency Provider Internal Medicine; PCP Family Medicine
DX: M24.521 Contracture, right elbow (principal); S93.402A Sprain of unspecified ligament of left ankle, initial encounter; W10.9XXA Fall (on) (from) unspecified stairs and steps, initial encounter; Y93.9 Activity, unspecified; Y92.9 Unspecified place or not applicable; Y99.9 Unspecified external cause status
CPT/HCPCS: 73080; 73610; 99283; 99284

== ENCOUNTER 2021-06-06 17:24 | Emergency (ER) | payer MEDICAID, SELFPAY ==
[2021-06-06 18:42] VITALS: BP 186/106; PULSE 104; RESP 20; TEMP 36.6; O2SAT 97; BMI 49.2
[2021-06-06] MEDS: Fluorescein Sodium STRIP 1 STRIP EYE-LEFT (19:11)
[2021-06-06] MEDS: Tetracaine HCl/PF 0.5% Oph Sol 4 ML DROPS 1 DROP EYE-LEFT (19:11)
--- NOTE | 2021-06-06 19:17 | PC.NURSE ---
KRISTIE LEACH AT BEDSIDE WITH [employer]LOOM WEAVER, EXAMINING PATIENT EYE. PATIENT IS RESTING COMFORTABLY ON STRETCHER SKIN IS P,D,W. NO DISTRESS NOTED. AWAITING EYE EXAM RESULTS FOR FURTHER ORDERS. MEDICATIONS GIVEN TO KRISTIE LEACH FOR EXAM
--- NOTE | 2021-06-06 20:00 | ED.EYEPROB ---
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 Patient denies any headache, chest pain, shortness of breath, nausea, vomiting, paralysis of extremities, facial droop, neck pain, any recent trauma to the eye or head. Patient patient states she was seen at [facility] a week ago was informed she had conjunctivitis the patient states he has been no improvement and still eye pain, redness, or blurry vision. Related Data Home Medications Medication Instructions Recorded Confirmed amitriptyline 75 mg tablet 75 mg PO BEDTIME 05/05/21 05/05/21 aspirin 81 mg tablet,delayed 81 mg PO DAILY 05/05/21 05/05/21 release (Adult Low Dose Aspirin) atorvastatin 40 mg tablet 40 mg PO BEDTIME 05/05/21 05/05/21 blood-glucose meter (FreeStyle 05/05/21 05/05/21 Lite Meter) citalopram 40 mg tablet 40 mg PO DAILY 05/05/21 05/05/21 clonazepam 1 mg tablet 1 mg PO DAILY PRN 05/05/21 05/05/21 docusate sodium 100 mg capsule 100 mg PO DAILY PRN 05/05/21 05/05/21 gabapentin 400 mg capsule 400 mg PO BID 05/05/21 05/05/21 hydroxyzine HCl 50 mg tablet 50 mg PO BID PRN 05/05/21 05/05/21 insulin lispro 100 unit/mL 10 unit SUBCUT TID 05/05/21 05/05/21 subcutaneous pen (Humalog KwikPen (U-100) Insulin) lisinopril 40 mg tablet 40 mg PO DAILY 05/05/21 05/05/21 loratadine 10 mg tablet (Allergy 10 mg PO DAILY 05/05/21 05/05/21 Relief (loratadine)) metformin 1,000 mg tablet,extended 1,000 mg PO BID 05/05/21 05/05/21 release 24hr nabumetone 500 mg tablet 500 mg PO BID 05/05/21 05/05/21 oxcarbazepine 300 mg tablet 300 mg PO BID 05/05/21 05/05/21 (Trileptal) pantoprazole 40 mg granules 40 mg PO DAILY 05/05/21 05/05/21 delayed-release for susp in packet (Protonix) prazosin 2 mg capsule 2 mg PO BEDTIME 05/05/21 05/05/21 quetiapine 300 mg tablet (Seroquel) 300 mg PO BEDTIME 05/05/21 05/05/21 topiramate 50 mg tablet 50 mg PO BID 05/05/21 05/05/21 Previous Rx's Medication Instructions Recorded pantoprazole 40 mg tablet,delayed 40 mg PO DAILY 30 Days #30 tab 02/04/21 release blood sugar diagnostic (FreeStyle #150 ea 05/05/21 Lite Strips) dulaglutide 1.5 mg/0.5 mL 1.5 mg (0.5 mL) SUBCUT QWEEK 28 05/05/21 subcutaneous pen injector Days #2 ml (Trulicity) cholecalciferol (vitamin D3) 50 50 mcg PO DAILY #30 cap 05/10/21 mcg (2,000 unit) capsule cyanocobalamin (vitamin B-12) 500 500 mcg PO DAILY #30 tab 05/10/21 mcg tablet ferrous sulfate 325 mg (65 mg 325 mg PO DAILY #30 tab 05/10/21 iron) tablet insulin glargine 100 unit/mL (3 35 unit (0.35 mL) SUBCUT QPM 30 05/13/21 mL) subcutaneous pen (Lantus Days #10.5 ml Solostar U-100 Insulin) tramadol 50 mg tablet 50 mg PO Q6H PRN #20 tab 05/26/21 oxycodone-acetaminophen 5 mg-325 1 tab PO TID PRN #9 tab 06/06/21 mg tablet (Percocet) Allergies Allergy/AdvReac Type Severity Reaction Status Date / Time No Known Allergies Allergy Verified 05/26/21 15:59 Review of Systems Review of Systems: Yes all other systems are reviewed and are negative Constitutional: Constitutional: Reports as per HPI and Reports no additional constitutional complaints Eyes: Eyes: Reports as per HPI and Reports no additional eye complaints Comments: Left eye pain redness with blurry vision ENT: Reports system reviewed and no additional complaints, except as documented and Reports as per HPI Cardiovascular: Cardiovascular: Reports as per HPI and Reports no additional cardiovascular complaints Respiratory: Respiratory: Reports as per HPI and Reports no additional respiratory complaints Gastrointestinal: Gastrointestinal: Reports as per HPI and Reports no additional gastrointestinal complaints Genitourinary: Genitourinary: Reports no additional female genitourinary complaints and Reports as per HPI Musculoskeletal: Musculoskeletal: Reports no additional musculoskeletal complaints and Reports as per HPI Neurologic: Reports system reviewed and no additional complaints, except as documented and Reports as per HPI Psychiatric: Psychiatric: Reports no additional psychiatric complaints and Reports as per HPI [facility] Past Medical History Medical History Anxiety Arthritis associated with diabetes Asthma Carpal tunnel syndrome on both sides Depression DM2 (diabetes mellitus, type 2) Fibromyalgia Gastritis GERD (gastroesophageal reflux disease) Herniated disc HLD (hyperlipidemia) HTN (hypertension) Migraine Obesity due to excess calories Sleep apnea Urinary incontinence Surgical History History of carpal tunnel release History of tubal ligation Family History Family History Father Rheumatoid arthritis Mother No problems noted. Social History Social History Household Members: None Alcohol intake: never Advance Directives: No Advance Directives Information Provided: No Physical Exam Vital Signs: Vital Signs: Last Vital Signs Temp 97.8 F 06/06/21 18:42 Pulse 95 06/06/21 21:23 Resp 16 06/06/21 21:23 BP 110/58 L 06/06/21 21:23 Pulse Ox 97 06/06/21 21:23 Body Mass Index 49.2 Const: General: cooperative, healthy appearing, comfortable, no acute distress, well developed, alert, awake and Physically active Orientation/consciousness: oriented to time and patient oriented x3 HENMT: Head: Yes normal to inspection, Yes No palpable skull fracture present, Yes normocephalic, Yes atraumatic and No abrasion Eyes: Other: Left eye: negative for any eyelid swelling. Tonometry pressure is 8. Visual acuity cannot be ascertained due to patient stating profuse blurry vision. Bedside eye ultrasound done with Dr Coles. negative for retinal detachment. Negative for corneal abrasios/ulcers on flourscein dye test. Fundus exam done by Dr. Coles Right eye; normal. Tonometry pressure is 4. Visual acuity is 20/20 Eyes/upper lids images: 1. Positive for redness of sclera and conjunctiva. 2. Positive for redness of scleral and conjunctiva. Neck: Neck: Yes normal visual inspection, Yes full ROM, Yes no lymphadenopathy, Yes no meningeal signs, Yes trachea midline, Yes supple and No tender Chest: Chest palpation & inspection: normal inspection of the chest and normal palpation of entire chest wall Resp: Effort & Inspection: normal respiratory effort and able to speak in complete sentences Auscultation: clear to auscultation bilaterally Cardio: Jugular venous distension: no JVD Heart sounds: S1 normal heart sound present and S2 normal heart sound present GI: Inspection: Yes normal to inspection and No abdominal wall ecchymosis Palpation (GI): Soft to palpation, not firm, nontender, no guarding and not rigid : General: No CVA tenderness and Yes no CVA tenderness Back/Spine/Pelvis: Back: no CVA tenderness, No CVA tenderness and No back tenderness Skin: General skin exam: no rashes or lesions noted and elasticity normal Neuro: Other: Negative facial droop. Negative slurred speech. All extremities equal strength 5+. [id number] or rapid head movement intact. Negative Romberg. Negative pronator drift General: oriented to time, patient oriented x3, gait normal, no meningeal signs and CN's II-XI intact bilaterally Cranial nerves: Yes CN's II-XII intact bilaterally Extrem: General: Yes normal to inspection and Yes full ROM Psych: Appearance: grossly normal, well kempt and not disheveled NIH Stroke Scale Level of Consciousness: Alert Level of Consciousness Questions: Answers both questions correctly Level of Consciousness Commands: Performs both tasks correctly Best Gaze: Normal Visual: No visual loss Facial Palsy: Normal Motor Arm (Right): No drift Motor Arm (Left): No drift Motor Leg (Right): No drift Motor Leg (Left): No drift Limb Ataxia: Absent Sensory: Normal Best Language: No aphasia Dysarthia: Normal Extinction and Inattention: No abnormality Score: 0 Course Course Course Narrative: Eye exam does not indicate glaucoma, retinal detachment, or clonal abrasion/ulcer. Not suspecting temporal arthritis. Not suspecting any intracranial stroke or bleed. No indication for head CT scan Will contact eye doctor. Patient has own eye doctor to follow up with but will contact Dr. Munguia our eye doctor on-call. Reevaluation(s) Reevaluation #1: Spoke with Dr. Munguia. He was informed of patient's history, physical exam and diagnostics. And states presently patient could be discharged and follow up with his clinic tomorrow morning for further evaluation. Patient was discussed this and she was states she will try to follow up with her eye doctor tomorrow if not able she will come to Dr. Munguia office. Patient's neuro exam is intact. Patient will be discharged with p.o. pain meds. Patient also educated on iritis, scleritis, or episcleritis which will be further evaluated by Dr. Munguia. Dr. Coles agree with plan Time: 20:24 MDM - Eye Problem MDM Narrative Medical decision making narrative: Eye pain Discharge Plan Discharge Clinical Impression: Acute left eye pain Patient Disposition: Home, Self-Care Instructions: Eye Pain (ED) Additional Instructions: Deber? hacer un seguimiento con nuestro oculista, el Dr. Munguia, ma?serafin por la ma?serafin para sandra evaluaci?n adicional. Actualmente, johnston examen f?sico no indica desprendimiento de retina, glaucoma, abrasi?n corneal, ?lcera corneal, accidente cerebrovascular o arteritis temporal. Regrese al servicio de urgencias si tiene dolor de jameson, dificultad para hablar, p?rdida de la visi?n descrita ortiz taylor blas, dolor en el pecho, dificultad para respirar, ca?da de la jennifer, mareos, n?useas, v?mitos, secreci?n robin de los ojos de color verdoso o cualquier otro s?ntoma preocupante. Prescriptions: New oxycodone-acetaminophen [Percocet] 5-325 mg tablet 1 tab PO TID PRN (Reason: pain) Qty: 9 RF: 0 No Action pantoprazole 40 mg tablet,delayed release (DR/EC) 40 mg PO DAILY 30 Days Qty: 30 RF: 2 cholecalciferol (vitamin D3) 50 mcg (2,000 unit) capsule 50 mcg PO DAILY Qty: 30 RF: 6 cyanocobalamin (vitamin B-12) 500 mcg tablet 500 mcg PO DAILY Qty: 30 RF: 6 ferrous sulfate 325 mg (65 mg iron) tablet 325 mg PO DAILY Qty: 30 RF: 6 Lantus Solostar U-100 Insulin 100 unit/mL (3 mL) insulin pen 35 unit subcut QPM 30 Days Qty: 10.5 RF: 6 tramadol 50 mg tablet 50 mg PO Q6H PRN (Reason: pain) Qty: 20 RF: 0 metformin 1,000 mg tablet extended release 24hr 1,000 mg PO BID RF: 0 (DME) blood-glucose meter [SmailexStyle Lite Meter] Kit See Rx Instructions .Route RF: 0 quetiapine [Seroquel] 300 mg tablet 300 mg PO BEDTIME RF: 0 amitriptyline 75 mg tablet 75 mg PO BEDTIME RF: 0 prazosin 2 mg capsule 2 mg PO BEDTIME RF: 0 gabapentin 400 mg capsule 400 mg PO BID RF: 0 atorvastatin 40 mg tablet 40 mg PO BEDTIME RF: 0 aspirin [Adult Low Dose Aspirin] 81 mg tablet,delayed release (DR/EC) 81 mg PO DAILY RF: 0 loratadine [Allergy Relief (loratadine)] 10 mg tablet 10 mg PO DAILY RF: 0 lisinopril 40 mg tablet 40 mg PO DAILY RF: 0 topiramate 50 mg tablet 50 mg PO BID RF: 0 oxcarbazepine [Trileptal] 300 mg tablet 300 mg PO BID RF: 0 clonazepam 1 mg tablet 1 mg PO DAILY PRNRF: 0 nabumetone 500 mg tablet 500 mg PO BID RF: 0 pantoprazole [Protonix] [address] for susp in packet 40 mg PO DAILY RF: 0 citalopram 40 mg tablet 40 mg PO DAILY RF: 0 insulin lispro [Humalog KwikPen Insulin] 100 unit/mL insulin pen 10 unit subcut TID RF: 0 docusate sodium 100 mg capsule 100 mg PO DAILY PRNRF: 0 hydroxyzine HCl 50 mg tablet 50 mg PO BID PRNRF: 0 Trulicity 1.5 mg/0.5 mL pen injector 1.5 mg subcut QWEEK 28 Days Qty: 2 RF: 6 (DME) FreeStyle Lite Strips Strip See Rx Instructions .Route Qty: 150 RF: 11 Referrals: Yaakov Munguia [Physician] - 2 days (Left eye pain, redness, blurry vision for 1 week) Stand Alone Forms: Work/School Release Interventions: ED Discharge Assessment Last Done: 06/06/21 22:05 Discharge Date/Time: 06/06/21 22:31 Print Language: Guamanian
[2021-06-06 21:23] VITALS: BP 110/58; PULSE 95; RESP 16; O2SAT 97
== END 2021-06-06 22:31 | disposition home or self-care (01) ==
PROVIDERS: Emergency Provider Internal Medicine; PCP Family Medicine
DX: H57.12 Ocular pain, left eye (principal); Z79.899 Other long term (current) drug therapy
CPT/HCPCS: 99283

== ENCOUNTER 2021-07-12 15:52 | Emergency (ER) | payer MEDICAID, SELFPAY ==
[2021-07-12 16:24] VITALS: BP 120/72; PULSE 105; RESP 18; TEMP 36.1; O2SAT 98; BMI 51.1
[2021-07-12 17:40] LABS: MANUAL DIFF FLAG NO
[2021-07-12 17:44] LABS: Basophils Percent Auto 0.1 % (0-2); Eosinophils Absolute Auto 0.1 X10*3/uL (0.0-0.4); Eosinophils Percent Auto 1.2 % (0-4); Hematocrit 34.5 % (37.0-47.0); Hemoglobin 10.6 g/dl (12.0-16.0); Imm Gran Abs Auto 0.04 X10*3/uL (0.00-0.03); Imm Gran Pct Auto 0.5 % (0.0-0.4); Lymphocytes Absolute Auto 2.6 X10*3/uL (1.2-4.9); Lymphocytes Percent Auto 31.9 % (20-40); Mean Corpuscular HGB Conc 30.7 g/dl (31.0-35.0); Mean Corpuscular Hemoglobin 24.9 pg (27.0-33.0); Mean Platelet Volume 9.7 fL (9.4-12.3); Monocytes Absolute Auto 0.5 X10*3/uL (0.1-1.2); Monocytes Percent Auto 6.3 % (2-11); Neutrophils Absolute Auto 4.9 x10*3/uL (2.0-8.3); Platelet Count 329 X10*3/uL (160-400); Red Blood Count 4.26 X10*6/uL (4.20-5.50); Red Cell Distribution Width 16.9 % (11.0-16.0); White Blood Count 8.1 X10*3/uL (4.8-10.8)
[2021-07-12 17:57] LABS: Anion Gap 11 (12-20); Blood Urea Nitrogen 22 mg/dL (9-16); Calcium 9.4 mg/dL (8.4-10.2); Carbon Dioxide 28 mmol/L (22-29); Chloride 105 mmol/L (96-108); Creatinine Clr Calc Pharmacy 91.5; Estimated Glomerular Filt Rate > 60; Glucose Random 224 mg/dL (60-115); Potassium 4.2 mmol/L (3.3-5.1); Sodium 140 mmol/L (135-145)
[2021-07-12 21:31] VITALS: BP 108/66; PULSE 91; RESP 20; O2SAT 98
--- NOTE | 2021-07-12 21:49 | ED_ITS ---
HPI - General Adult General Chief complaint: General Medical Stated complaint: rash hands and feet Time Seen by Provider: 07/12/21 21:49 Source: patient Mode of arrival: ambulatory Limitations: no limitations History of Present Illness HPI narrative: This is a 50-year-old female past medical history significant for Irvan syndrome, hypertension, diabetes, hyperlipidemia and obesity presenting to the emergency department for 2 separate complaints 1st complaint is rash on palms and soles of feet that she noted 3 days ago that has been progressively worsening, patient tells me the rash is extremely painful and has been getting worse over the past 3 days. Second complaint patient has today is pain to the left eye, which appears to be chronic in nature, patient tells me she is followed by an eye doctor who tells her that he does not prescribed pain med, she tells me she would like pain med for her eye, she also tells me that she was seen here in the emergency department May for left eye pain with blurred vision which she is reporting today, she tells me this is not new, she would just like something for the discomfort. She tells me she is prescribed tramadol that time, and she noted significant improvement. Onset (ago): day(s) (3) Location: upper extremity (bilateral palms ) and lower extremity (bilateral soles ) Radiation: non-radiation Severity: severe Severity scale (1-10): 10 Quality: stabbing, sharp and constant Pain Consistency: constant Relieving factors: none Exacerbating factors: none Associated symptoms: denies other symptoms Treatments prior to arrival: none Related Data Home Medications Medication Instructions Recorded Confirmed amitriptyline 75 mg tablet 75 mg PO BEDTIME 05/05/21 05/05/21 aspirin 81 mg tablet,delayed 81 mg PO DAILY 05/05/21 05/05/21 release (Adult Low Dose Aspirin) atorvastatin 40 mg tablet 40 mg PO BEDTIME 05/05/21 05/05/21 blood-glucose meter (FreeStyle 05/05/21 05/05/21 Lite Meter) citalopram 40 mg tablet 40 mg PO DAILY 05/05/21 05/05/21 clonazepam 1 mg tablet 1 mg PO DAILY PRN 05/05/21 05/05/21 docusate sodium 100 mg capsule 100 mg PO DAILY PRN 05/05/21 05/05/21 gabapentin 400 mg capsule 400 mg PO BID 05/05/21 05/05/21 hydroxyzine HCl 50 mg tablet 50 mg PO BID PRN 05/05/21 05/05/21 insulin lispro 100 unit/mL 10 unit SUBCUT TID 05/05/21 05/05/21 subcutaneous pen (Humalog KwikPen (U-100) Insulin) lisinopril 40 mg tablet 40 mg PO DAILY 05/05/21 05/05/21 loratadine 10 mg tablet (Allergy 10 mg PO DAILY 05/05/21 05/05/21 Relief (loratadine)) metformin 1,000 mg tablet,extended 1,000 mg PO BID 05/05/21 05/05/21 release 24hr nabumetone 500 mg tablet 500 mg PO BID 05/05/21 05/05/21 oxcarbazepine 300 mg tablet 300 mg PO BID 05/05/21 05/05/21 (Trileptal) pantoprazole 40 mg granules 40 mg PO DAILY 05/05/21 05/05/21 delayed-release for susp in packet (Protonix) prazosin 2 mg capsule 2 mg PO BEDTIME 05/05/21 05/05/21 quetiapine 300 mg tablet (Seroquel) 300 mg PO BEDTIME 05/05/21 05/05/21 topiramate 50 mg tablet 50 mg PO BID 05/05/21 05/05/21 Previous Rx's Medication Instructions Recorded blood sugar diagnostic (FreeStyle #150 ea 05/05/21 Lite Strips) dulaglutide 1.5 mg/0.5 mL 1.5 mg (0.5 mL) SUBCUT QWEEK 28 05/05/21 subcutaneous pen injector Days #2 ml (Trulicity) cholecalciferol (vitamin D3) 50 50 mcg PO DAILY #30 cap 05/10/21 mcg (2,000 unit) capsule cyanocobalamin (vitamin B-12) 500 500 mcg PO DAILY #30 tab 05/10/21 mcg tablet ferrous sulfate 325 mg (65 mg 325 mg PO DAILY #30 tab 05/10/21 iron) tablet insulin glargine 100 unit/mL (3 35 unit (0.35 mL) SUBCUT QPM 30 05/13/21 mL) subcutaneous pen (Lantus Days #10.5 ml Solostar U-100 Insulin) tramadol 50 mg tablet 50 mg PO Q6H PRN #20 tab 05/26/21 oxycodone-acetaminophen 5 mg-325 1 tab PO TID PRN #9 tab 06/06/21 mg tablet (Percocet) pantoprazole 40 mg tablet,delayed 40 mg PO DAILY 30 Days #30 tab 06/07/21 release tramadol 50 mg tablet 50 mg PO Q8H PRN #8 tab 07/13/21 Allergies Allergy/AdvReac Type Severity Reaction Status Date / Time No Known Allergies Allergy Verified 05/26/21 15:59 Review of Systems Review of Systems: Constitutional : No Weight loss, No Fever, No Chills, No Fatigue, No Malaise ENT/Mouth : No sore throat, No Rhinorrhea Eyes: + Eye Pain, No Swelling, No Redness Cardiovascular : No Chest Pain, No SOB, No Dyspnea on Exertion, No Orthopnea, No Edema, No Palpitations Respiratory : No Cough, No Sputum, No Wheezing Gastrointestinal : No Nausea, No Vomiting, No Diarrhea, No Constipation, No abdominal Pain, No Hematochezia, No Melena Genitourinary : No Dysuria, No Urinary Frequency, No Hematuria, Musculoskeletal : No joint pain, No Myalgias, No Joint Swelling Skin : No Skin Lesions, + rash Neuro : No Weakness, No Numbness, No Dizziness, No Headache All other systems reviewed and are negative Yes all other systems are reviewed and are negative [facility] Past Medical History Attestation statement: The following information was validated with the patient. Source: old records reviewed and nursing notes reviewed Medical History Anxiety Arthritis associated with diabetes Asthma Carpal tunnel syndrome on both sides Depression DM2 (diabetes mellitus, type 2) Fibromyalgia Gastritis GERD (gastroesophageal reflux disease) Herniated disc HLD (hyperlipidemia) HTN (hypertension) Migraine Obesity due to excess calories Sleep apnea Urinary incontinence Surgical History History of carpal tunnel release History of tubal ligation Family History Family History Father Rheumatoid arthritis Mother No problems noted. Social History Social History Household Members: None Alcohol intake: never Advance Directives: No Advance Directives Information Provided: No Physical Exam Vital Signs: Vital Signs: Last Vital Signs Temp 98.3 F 07/13/21 00:11 Pulse 94 07/13/21 00:11 Resp 18 07/13/21 00:11 BP 93/56 L 07/13/21 00:11 Pulse Ox 100 07/13/21 00:11 BMI result Body Mass Index 51.1 VSS Appearance: Alert.? Oriented X3.? No acute distress.?Obese Head: Normocephalic, atraumatic, no step-offs or deformities Eyes: Pupils equal, round and reactive to light.?+ injection to left sclera. No pain with EOM. Bilateral eye pressure is 13 ENT: Pharynx normal.? Neck: Normal inspection.? Neck supple.? CVS: Normal heart rate and rhythm.? Pulses normal.? Respiratory: No respiratory distress.? Breath sounds normal.? Abdomen: Soft and nontender.? Skin: Skin warm and dry.? Normal skin color.? Normal skin turgor.?+ rash to bilateral soles of hands and feet (images attached) Extremities: No lower extremity edema.? No calf ttp. 5/5 strength to bilateral upper and lower extremities Back: No midline tenderness, no C-spine tenderness, full range of motion, no CVA tenderness bilaterally Neuro: Oriented X 3.? No motor deficit.? No sensory deficit. Course Course Course Narrative: This case was disucssed with Dr. Lerner, she agrees with DC patient home with PCP follow up. Reevaluation(s) Reevaluation #1: Bilateral eye pressures 13, unlikely acute angle glaucoma. Labs show no leukocytosis, and anemia is noted however has been present in the past on it May 06, 2021, no acute electrolyte abnormalities. Patient's BUN is noted to be elevated at 22. Lactic acid 1.4. Tick panel, and syphilis pending. Penicillin G empiric syphilis treatment will be given Time: 23:38 Reevaluation #2: Rash could be secondary to syphilis and or Lyme disease, labs pending. Patient's eye pain is chronic in nature, she is followed by a retinal specialist which she will follow-up with At this time syphilis, tick panel, are pending. Blood cultures have also been drawn and are pending. Patient will be discharged home and has been advised to follow-up with her PCP. I have also advised her to return to the emergency department with new or worsening symptoms. Time: 00:25 Medical Decision Making MDM Narrative Medical decision making narrative: 1946 50-year-old female past medical history for Irvan syndrome, hypertension, hyperlipidemia, diabetes and chronic left eye pain presents to the emergency department with complaints of left eye pain, nontraumatic and a rash to bilateral palms of hands and soles of feet. Patient denies hx of STDs. Denies recent tick bite On June 06, 2021 patient presented to the emergency department with 1 week of left eye pain with redness and blurred vision, similar to today's presentation however patient tells me that this left eye pain has now been going on for about a month. She was advised to follow-up with Dr. Munguia or her eye doctor she tells me she saw her eye docotor who will not prescribe patient pain meds. Upon physical examination there is a rash noted to bilateral palms of the hands, bilateral soles of the feet, pictured in the chart. Patient has scleral icterus to the left sclera, right sclera normal. Bilateral pupils equal round and reactive to light. No pain with extraocular movements. Regular rate and rhythm. S1-S2 appreciated. Lungs are clear. Abdomen soft nontender nondistended. No focal neuro deficits noted. Differential diagnoses include a syphilis, Lyme disease, erythema multiform, drug eruption. Lab Data Result diagrams: 07/12/21 17:37 07/12/21 17:37 Labs: Lab Results 07/12/21 07/12/21 07/12/21 Range/Units 17:37 17:37 22:24 WBC 8.1 (4.8-10.8) X10*3/uL RBC 4.26 (4.20-5.50) X10*6/uL Hgb 10.6 L (12.0-16.0) g/dl Hct 34.5 L (37.0-47.0) % MCV 81.0 (80.0-98.0) fL MCH 24.9 L (27.0-33.0) pg MCHC 30.7 L (31.0-35.0) g/dl RDW 16.9 H (11.0-16.0) % Plt Count 329 (160-400) X10*3/uL MPV 9.7 (9.4-12.3) fL Immature Gran % (Auto) 0.5 H (0.0-0.4) % Neut % (Auto) 60.0 (45-73) % Lymph % (Auto) 31.9 (20-40) % [place] % (Auto) 6.3 (2-11) % Eos % (Auto) 1.2 (0-4) % Baso % (Auto) 0.1 (0-2) % Lymph # (Auto) 2.6 (1.2-4.9) X10*3/uL [place] # (Auto) 0.5 (0.1-1.2) X10*3/uL Eos # (Auto) 0.1 (0.0-0.4) X10*3/uL Baso # (Auto) 0.0 (0.0-0.2) X10*3/uL Abs Immat Gran (auto) 0.04 H (0.00-0.03) X10*3/uL Absolute Neuts (auto) 4.9 (2.0-8.3) x10*3/uL Absolute Nucleated RBC 0.000 (0.0-0.012) X10*3/uL Nucleated RBC % (auto) 0.0 (0.0-0.2) /100WBC Sodium 140 (135-145) mmol/L Potassium 4.2 (3.3-5.1) mmol/L Chloride 105 (96-108) mmol/L Carbon Dioxide 28 (22-29) mmol/L Anion Gap 11 L (12-20) BUN 22 H (9-16) mg/dL Creatinine 0.85 (0.5-1.4) mg/dL Estim Creat Clear Calc 91.5 Estimated GFR > 60 Random Glucose 224 H (60-115) mg/dL Lactic Acid 1.4 (0.5-2.0) mmol/L Calcium 9.4 (8.4-10.2) mg/dL Critical Care Time Critical Care Time Critical Care Time: No Discharge Plan Discharge Clinical Impression: Rash, Left eye pain Patient Disposition: Home, Self-Care Instructions: Acute Rash (ED), Cold Compress or Soak (ED) Additional Instructions: Take your medications as prescribed. If you were prescribed antibiotics today, it is important that you take your medication to their entirety, do not skip any doses, do not finish them early. Follow-up with your primary care provider this week. Please follow-up with her eye doctor and retina specialist this week. Return to the emergency department with new or worsening symptoms. In case of emergency call 911 I attest that I have reviewed patients [place], and at the time prescribing the patient a controlled substance is appropriate based off of patients diagnosis and treatment plan. Prescriptions: New tramadol 50 mg tablet 50 mg PO Q8H PRN (Reason: pain) Qty: 8 RF: 0 No Action cholecalciferol (vitamin D3) 50 mcg (2,000 unit) capsule 50 mcg PO DAILY Qty: 30 RF: 6 cyanocobalamin (vitamin B-12) 500 mcg tablet 500 mcg PO DAILY Qty: 30 RF: 6 ferrous sulfate 325 mg (65 mg iron) tablet 325 mg PO DAILY Qty: 30 RF: 6 Lantus Solostar U-100 Insulin 100 unit/mL (3 mL) insulin pen 35 unit subcut QPM 30 Days Qty: 10.5 RF: 6 pantoprazole 40 mg tablet,delayed release (DR/EC) 40 mg PO DAILY 30 Days Qty: 30 RF: 5 tramadol 50 mg tablet 50 mg PO Q6H PRN (Reason: pain) Qty: 20 RF: 0 oxycodone-acetaminophen [Percocet] 5-325 mg tablet 1 tab PO TID PRN (Reason: pain) Qty: 9 RF: 0 metformin 1,000 mg tablet extended release 24hr 1,000 mg PO BID RF: 0 (DME) blood-glucose meter [FreeStyle Lite Meter] Kit See Rx Instructions .Route RF: 0 quetiapine [Seroquel] 300 mg tablet 300 mg PO BEDTIME RF: 0 amitriptyline 75 mg tablet 75 mg PO BEDTIME RF: 0 prazosin 2 mg capsule 2 mg PO BEDTIME RF: 0 gabapentin 400 mg capsule 400 mg PO BID RF: 0 atorvastatin 40 mg tablet 40 mg PO BEDTIME RF: 0 aspirin [Adult Low Dose Aspirin] 81 mg tablet,delayed release (DR/EC) 81 mg PO DAILY RF: 0 loratadine [Allergy Relief (loratadine)] 10 mg tablet 10 mg PO DAILY RF: 0 lisinopril 40 mg tablet 40 mg PO DAILY RF: 0 topiramate 50 mg tablet 50 mg PO BID RF: 0 oxcarbazepine [Trileptal] 300 mg tablet 300 mg PO BID RF: 0 clonazepam 1 mg tablet 1 mg PO DAILY PRNRF: 0 nabumetone 500 mg tablet 500 mg PO BID RF: 0 pantoprazole [Protonix] [address] for susp in packet 40 mg PO DAILY RF: 0 citalopram 40 mg tablet 40 mg PO DAILY RF: 0 insulin lispro [Humalog KwikPen Insulin] 100 unit/mL insulin pen 10 unit subcut TID RF: 0 docusate sodium 100 mg capsule 100 mg PO DAILY PRNRF: 0 hydroxyzine HCl 50 mg tablet 50 mg PO BID PRNRF: 0 Trulicity 1.5 mg/0.5 mL pen injector 1.5 mg subcut QWEEK 28 Days Qty: 2 RF: 6 (DME) FreeStyle Lite Strips Strip See Rx Instructions .Route Qty: 150 RF: 11 Referrals: Aleisha Morillo MD [Primary Care Provider] - 2 days Stand Alone Forms: Work/School Release
[2021-07-12 22:48] LABS: Lactic Acid 1.4 mmol/L (0.5-2.0)
[2021-07-12 23:08] VITALS: BP 116/75; PULSE 99; RESP 16; O2SAT 97
[2021-07-13 00:11] VITALS: BP 93/56; PULSE 94; RESP 18; TEMP 36.8; O2SAT 100
[2021-07-13] MEDS: Penicillin G Benzathine 2,400,000 UNIT/4 ML SYRINGE 2400000 UNIT IM (00:11)
[2021-07-13 08:15] LABS: Syphilis Screen Reactive (Nonreactive)
[2021-07-15 05:06] LABS: Lyme Abs Screen <0.90 index
[2021-07-15 15:01] LABS: A. Phagocytphilium DNA,RT-PCR NOT DETECTED (NOT DETECTED); Babesia Microti DNA, RT-PCR NOT DETECTED (NOT DETECTED); Borrelia Miyamotoi,DNA RT-PCR NOT DETECTED (NOT DETECTED); E.Chaffeensis DNA RT-PCR NOT DETECTED (NOT DETECTED); Lyme(Borrelia ssp)DNA RT-PCR NOT DETECTED (NOT DETECTED); Source-Tick borne disease BLOOD
[2021-07-16 15:23] LABS: RPR Quantitative Reactive 1:64 (Nonreactive)
[2021-07-16 15:24] LABS: T.Pallidum Particle Agg Test Reactive (Nonreactive)
== END 2021-07-13 00:53 | disposition home or self-care (01) ==
PROVIDERS: Physician Assistant; Emergency Provider Student in an Organized Health Care Education/Training Program; PCP Family Medicine
DX: A53.9 Syphilis, unspecified (principal); R21 Rash and other nonspecific skin eruption; H57.12 Ocular pain, left eye; R17 Unspecified jaundice; I10 Essential (primary) hypertension; E11.9 Type 2 diabetes mellitus without complications; E78.5 Hyperlipidemia, unspecified; Z79.4 Long term (current) use of insulin; Z79.899 Other long term (current) drug therapy
CPT/HCPCS: 36415; 80048; 83605; 85025; 86592; 86617; 86618; 86780; 87040; 87798; 87801; 96372; 99284; J0561

== ENCOUNTER 2022-01-24 13:54 | Outpatient (REF) | payer MEDICAID, SELFPAY ==
--- NOTE | ~2022-01-24 | MM_ITS ---
EXAMINATION: MM DIAGNOSTIC DIGITAL BREAST TOMOSYNTHESIS, BILATERAL CLINICAL INFORMATION: Due for yearly. Also follow-up probable benign calcifications central inner right breast. The lifetime risk of breast cancer based on the Tyrer-Cuzick Model is 12%. COMPARISON: Mammography: 03/10/2021 (BI-RADS 3), 03/08/2021 (BI-RADS 0), 07/03/2019. TECHNIQUE: Digital breast tomosynthesis is performed in both the craniocaudal and mediolateral oblique views along with computer-aided detection (CAD). Synthesized 2D images are generated from the tomosynthesis. Additional views are obtained: Bilateral CC, right MLO x2, left MLO, magnification right CC, magnification right LM x3. FINDINGS: There are scattered areas of fibroglandular density (ACR BI-RADS breast composition Category b). Breast tissue composition borders on predominantly fatty. Background stromal and fibroglandular densities are stable. There is no interval mass or architectural abnormality or developing density. Again, there are bilateral scattered benign round and rim calcifications. The calcifications for follow-up central lower inner right breast are without significant change from prior diagnostic exam. Tomography may suggest vascular etiology, not definite on the magnification views however. Calcifications will be reassessed again in 6 months. Results are provided to the patient at time of visit by the technologist. MM/MM tomosynthesis diagnostic BI IMPRESSION: Right: -No significant change in the calcifications for follow-up central lower inner breast. Left: -No mammographic evidence of malignancy. ASSESSMENT: BI-RADS 3: Probably Benign RECOMMENDATION: Diagnostic right mammography in 6 months. This patient's information was entered into a reminder system with a target due date for their next mammogram.
== END 2022-01-24 13:55 | disposition home or self-care (01) ==
LOC: HO.MAMMO 13:54
PROVIDERS: PCP Family Medicine; Visit Provider Family Medicine
DX: R92.1 Mammographic calcification found on diagnostic imaging of breast (principal)
CPT/HCPCS: 77062; 77066

== ENCOUNTER 2022-08-15 13:42 | Outpatient (REF) | payer MEDICAID, SELFPAY ==
--- NOTE | ~2022-08-15 | MM_ITS ---
EXAMINATION: MM DIAGNOSTIC DIGITAL BREAST TOMOSYNTHESIS, RIGHT CLINICAL INFORMATION: Follow-up probable benign calcifications central inner right breast. The lifetime risk of breast cancer based on the Tyrer-Cuzick Model is 12%. COMPARISON: Mammography: 01/24/2022, 03/10/2021, 03/08/2021 (BI-RADS 0), 07/03/2019 TECHNIQUE: Digital breast tomosynthesis is performed in both the craniocaudal and mediolateral oblique views along with computer-aided detection (CAD). Synthesized 2D images are generated from the tomosynthesis. Additional CC and MLO views are obtained along with magnification LM x2 and magnification CC. FINDINGS: There are scattered areas of fibroglandular density (ACR BI-RADS breast composition Category b). Breast tissue composition borders on predominantly fatty. Background stromal and fibroglandular densities are stable and there is no interval mass or architectural abnormality or developing density. There are scattered round and rim calcifications and vascular calcifications again seen. Grouped calcifications posterior central 5:00 position are similar to prior diagnostic exam. On the MLO tomography, they are suggestive of vascular calcifications, not definitive on the magnification views. No increasing calcifications. Results are provided to the patient at time of visit by the technologist. MM/MM tomosynthesis diagnostic RT IMPRESSION: No significant changes from prior exam. ASSESSMENT: BI-RADS 3: Probably Benign RECOMMENDATION: Diagnostic mammography at time of bilateral annual exam, due in 6 months. This patient's information was entered into a reminder system with a target due date for their next mammogram.
== END 2022-08-15 13:43 | disposition home or self-care (01) ==
LOC: HO.MAMMO 13:42
PROVIDERS: PCP Family Medicine; Visit Provider Family Medicine
DX: R92.1 Mammographic calcification found on diagnostic imaging of breast (principal)
CPT/HCPCS: 77061; 77065

== ENCOUNTER 2023-02-08 14:32 | Outpatient (REF) | payer MEDICAID, SELFPAY ==
[2023-02-08 16:55] LABS: Alanine Aminotransferase 19 U/L (0-31); Albumin Level 3.8 g/dL (3.5-5.0); Alkaline Phosphatase 154 U/L (39-117); Anion Gap 14 (12-20); Aspartate Amino Transferase 18 U/L (5-31); Bilirubin Direct 0.1 mg/dL (0.0-0.5); Bilirubin Total 0.3 mg/dL (0.0-1.0); Blood Urea Nitrogen 18 mg/dL (9-16); Calcium 9.8 mg/dL (8.4-10.2); Carbon Dioxide 24 mmol/L (22-29); Chloride 107 mmol/L (96-108); Cholesterol 248 mg/dL; Estimated Glomerular Filt Rate > 60; Glucose Random 149 mg/dL (60-115); HDL Cholesterol 59 mg/dL; LDL Cholesterol Calculated 170 mg/dl; Potassium 4.5 mmol/L (3.3-5.1); Sodium 140 mmol/L (135-145); Total Protein 7.1 g/dL (6.5-8.0); Triglycerides 99 mg/dL
[2023-02-09 05:00] LABS: HIV AB/AG Nonreactive (Nonreactive); HIV Num 1 0.31 S/CO (0.00-0.99)
[2023-02-09 05:01] LABS: ~Hepatitis C Antibody Nonreactive (Nonreactive)
[2023-02-09 12:09] LABS: Syphilis Screen Reactive (Nonreactive)
[2023-02-09 13:37] LABS: CT PCR NOT DETECTED (Not Detect.); NG PCR NOT DETECTED (Not Detect.)
[2023-02-14 14:21] LABS: RPR Quantitative Non-Reactive (Nonreactive); T.Pallidum Particle Agg Test Reactive (Nonreactive)
== END 2023-02-08 14:33 | disposition home or self-care (01) ==
LOC: HO.HHCL 14:32
PROVIDERS: Visit Provider Family Medicine
DX: Z11.4 Encounter for screening for human immunodeficiency virus [HIV] (principal); Z11.3 Encounter for screening for infections with a predominantly sexual mode of transmission; E11.40 Type 2 diabetes mellitus with diabetic neuropathy, unspecified; E11.65 Type 2 diabetes mellitus with hyperglycemia
CPT/HCPCS: 0353U; 36415; 80048; 80061; 80076; 86592; 86780; 86803; 87389

== ENCOUNTER 2023-05-18 | Outpatient (REF) | payer MEDICAID, SELFPAY ==
[2023-05-22 19:48] LABS: C. trachomatis RNA TMA NOT DETECTED (NOT DETECTED); N. gonorrhoeae RNA TMA NOT DETECTED (NOT DETECTED)
[2023-05-25 10:29] LABS: HPV 16 RNA NOT DETECTED (NOT DETECTED); HPV mRNA E6/E7 rflx Detected (Not Detected)
== END 2023-05-18 00:01 | disposition home or self-care (01) ==
LOC: HO.HHCLNP
PROVIDERS: Visit Provider Family Medicine
DX: Z12.4 Encounter for screening for malignant neoplasm of cervix (principal); Z11.51 Encounter for screening for human papillomavirus (HPV)
CPT/HCPCS: 36415; 87491; 87591; 87624; 87625; 88142

== ENCOUNTER 2024-03-27 08:47 | Outpatient (REF) | payer MEDICAID, SELFPAY ==
[2024-03-27 11:38] LABS: Estimated Average Glucose 189 mg/dL; Hemoglobin A1c % 8.2 % (<6.0)
[2024-03-27 11:59] LABS: Alanine Aminotransferase 26 U/L (0-31); Alkaline Phosphatase 134 U/L (39-117); Anion Gap 15 (12-20); Aspartate Amino Transferase 21 U/L (5-31); Bilirubin Direct < 0.2 mg/dL (0.0-0.5); Bilirubin Total 0.2 mg/dL (0.0-1.0); Blood Urea Nitrogen 20 mg/dL (9-16); Calcium 9.8 mg/dL (8.4-10.2); Carbon Dioxide 23 mmol/L (22-29); Chloride 105 mmol/L (96-108); Cholesterol 170 mg/dL (<200); Estimated Glomerular Filt Rate > 60; Glucose Random 162 mg/dL (60-115); HDL Cholesterol 64 mg/dL (>40); Iron 74 mcg/dL (30-160); LDL Cholesterol Calculated 75 mg/dL (<100); Percent Iron Saturation 23 % (15-50); Sodium 139 mmol/L (135-145); Total Iron Binding Capacity 322 mcg/dL (228-428); Total Protein 7.6 g/dL (6.5-8.0); Triglycerides 159 mg/dL (<150); Unsaturated Iron Binding 248 ug/dL
[2024-03-27 12:03] LABS: Creatinine Urine 122.28 mg/dL; Microalbum/Creatinine Ratio Ur 7.3 ug/mg cr (<30)
[2024-03-27 12:04] LABS: Ferritin 98 ng/mL (10-250); Vitamin D 25-OH Total 40.3 ng/mL (>30)
[2024-03-27 12:08] LABS: HBS Num1 0.72 mIU/mL (0-7.99); HBc Num1 0.21 S/CO (0.00-0.79); HBsAGNum1 0.18 S/CO (0.00-0.99); Hepatitis A Antibody IgM 0.12 Index (0-0.79); Hepatitis B Core Antibody Nonreactive (Nonreactive); Hepatitis B Surface Antigen Negative (Negative); ~Hepatitis A Antibody IgM Nonreactive (Nonreactive); ~Hepatitis B Surface Antibody NONREACTIVE (Nonreactive); ~Hepatitis C Antibody Nonreactive (Nonreactive)
[2024-03-27 12:24] LABS: Vitamin B12 362 pg/mL (200-900)
[2024-03-28 19:07] LABS: Ceruloplasmin 32 mg/dL (14-48)
[2024-03-31 13:09] LABS: Anti Nuclear Antibody Screen NEGATIVE (NEGATIVE)
[2024-04-01 12:28] LABS: Smooth Muscle Antibody <20 U (<20)
[2024-04-01 13:13] LABS: Alpha Fetoprotein 1.2 ng/mL
[2024-04-02 14:19] LABS: Mitochondrial Antibodies NEGATIVE (NEGATIVE)
== END 2024-03-27 08:48 | disposition home or self-care (01) ==
LOC: HO.HHCL 08:47
PROVIDERS: Visit Provider Family Medicine
DX: E11.40 Type 2 diabetes mellitus with diabetic neuropathy, unspecified (principal); E11.65 Type 2 diabetes mellitus with hyperglycemia; E55.9 Vitamin D deficiency, unspecified; E53.8 Deficiency of other specified B group vitamins; R74.01 Elevation of levels of liver transaminase levels
CPT/HCPCS: 36415; 80048; 80061; 80076; 82043; 82105; 82306; 82390; 82570; 82607; 82728; 82746; 83036; 83540; 86015; 86038; 86381; 86704; 86706; 86709; 86803; 87340

== ENCOUNTER 2024-07-06 14:34 | Inpatient (IN) | payer MEDICAID, SELFPAY ==
[2024-07-06] VITALS (19 sets, daily range): BP systolic 62–146; BP diastolic 33–90; PULSE 80–115; RESP 14–23; TEMP 36.3–37.1; O2SAT 90–98; BMI 28.3; BMI 52.8
--- NOTE | ~2024-07-06 | XR_ITS ---
EXAMINATION: XR CHEST 1 VIEW CLINICAL INFORMATION: hypotension COMPARISON: Prior study 2020 TECHNIQUE: Single portable frontal view. Tubes and lines: None Lungs and pleura: Increased attenuation over the left lung field probably due to oblique technique. No evidence of dense focal consolidation pneumonia. Heart and mediastinum: Heart and mediastinum are widened exaggerated by AP and oblique technique.. Bones/soft tissue: Skeletal structures included are normal for patient's age. XR/XR chest 1V IMPRESSION: 1. Increased attenuation over the left lung field probably due to oblique technique. 2. No dense focal consolidation pneumonia. 3. Widened mediastinum exaggerated by AP and oblique technique. Electronically signed by: Sailaja Mobley MD 07/06/2024 04:55 PM [facility]
--- NOTE | ~2024-07-06 | CT_ITS ---
EXAMINATION: CT HEAD WITHOUT CONTRAST CLINICAL INFORMATION: Altered mental status. COMPARISON: None available. TECHNIQUE: Contiguous axial imaging was performed from the skull base to vertex without intravenous administration of contrast. This CT examination was performed using dose optimization techniques as appropriate, variously including the following: *Automated exposure control. *Adjustment of mA and/or kV according to patient size (this includes techniques or standardized protocols for targeted exams where dose is matched to indication/reason for exam; i.e. extremities or head). *Use of iterative reconstruction technique. DLP: 1027 mGy-cm FINDINGS: There is no evidence of acute intracranial hemorrhage or edematous territorial infarction. [place]ques-white matter differentiation is preserved. Scattered and partially confluent hypoattenuation in the periventricular and deep white matter are consistent with moderate microangiopathy. Proportional prominence of the ventricles and sulcal spaces without evidence of obstructive hydrocephalus. No abnormal mass effect or midline shift. No extra-axial fluid collections. No acute soft tissue or osseous abnormalities. Moderate mucosal thickening of the paranasal sinuses. Mild leftward nasal septal deviation. The mastoid air cells and middle ear cavities are clear. CT/CT head/brain wo IV con IMPRESSION: 1. No evidence of acute intracranial hemorrhage or edematous territorial infarction. 2. Moderate underlying microangiopathy and generalized cerebral volume loss. Electronically signed by: Rene Recinos DO 07/06/2024 07:54 PM EST
--- NOTE | ~2024-07-06 | CT_ITS ---
EXAMINATION: CT ABDOMEN AND PELVIS WITHOUT CONTRAST CLINICAL INFORMATION: Left lower quadrant pain. COMPARISON: June 07, 2020. TECHNIQUE: Multidetector volumetric imaging was performed from the superior aspect of the liver through the pubic symphysis. Sagittal and coronal reformatted images were obtained on the technologist's workstation. This CT examination was performed using dose optimization techniques as appropriate, variously including the following: *Automated exposure control *Adjustment of mA and/or kV according to patient size (this includes techniques or standardized protocols for targeted exams where dose is matched to indication/reason for exam; i.e. extremities or head) *Use of iterative reconstruction technique DLP: 1300 mGy-cm FINDINGS: LUNG BASES: The lung bases appear clear, with no evidence of inflammation or nodules. LIVER, GALLBLADDER, AND BILIARY TREE: The liver measures approximately 19.5 cm in sagittal dimension. It may be mildly hypodense, diffusely. It appears unremarkable in contour. No focal hepatic lesion or biliary ductal dilatation is appreciated. Mildly distended gallbladder measuring 5.0 cm in diameter by 11 cm in length. No obvious gallbladder wall thickening or pericholecystic inflammatory change. No radiopaque stone identified. PANCREAS: Unremarkable SPLEEN: Unremarkable ADRENAL GLANDS: Unremarkable KIDNEYS AND URETERS: The kidneys appear unremarkable in size, shape, and attenuation. No hydronephrosis, hydroureter, or calculi seen. BLADDER: Unremarkable GASTROINTESTINAL TRACT: Suspect small hiatus hernia. The small and large bowel appear unremarkable. No diverticulosis. Normal-appearing distal ileum and vermiform appendix. ABDOMINAL WALL: No significant hernia is appreciated. LYMPH NODES: No evidence of adenopathy by size criteria. VASCULAR: Unremarkable PELVIC VISCERA: Unremarkable OSSEOUS STRUCTURES: Unremarkable CT/CT abdomen pelvis wo IV con IMPRESSION: No acute left lower quadrant finding. Mildly distended gallbladder. Mild hepatosplenomegaly. Fatty infiltration of the liver. Suspect small hiatus hernia. Electronically signed by: Ant Barnard MD 07/06/2024 06:03 PM [facility]
[2024-07-06 15:11] LABS: Glucose, Whole Blood 107 mg/dL (60-115)
[2024-07-06] MEDS: 0.9 % Sodium Chloride 1,000 ML 999 ML IV ×2 (15:15→15:41)
[2024-07-06 15:26] LABS: MANUAL DIFF FLAG NO
[2024-07-06 15:28] LABS: Basophils Absolute Auto 0.1 X10*3/uL (0.0-0.2); Basophils Percent Auto 0.5 % (0-2); Eosinophils Percent Auto 0.2 % (0-4); Hematocrit 36.4 % (37.0-47.0); Hemoglobin 11.7 g/dl (12.0-16.0); Imm Gran Abs Auto 0.06 X10*3/uL (0.00-0.03); Imm Gran Pct Auto 0.6 % (0.0-0.4); Mean Corpuscular HGB Conc 32.1 g/dl (31.0-35.0); Mean Corpuscular Hemoglobin 26.7 pg (27.0-33.0); Mean Corpuscular Volume 82.9 fL (80.0-98.0); Mean Platelet Volume 9.5 fL (9.4-12.3); Monocytes Absolute Auto 0.5 X10*3/uL (0.1-1.2); Monocytes Percent Auto 4.5 % (2-11); Neutrophils Absolute Auto 7.5 x10*3/uL (2.0-8.3); Neutrophils Percent Auto 74.2 % (45-73); Platelet Count 317 X10*3/uL (160-400); Red Blood Count 4.39 X10*6/uL (4.20-5.50); Red Cell Distribution Width 14.1 % (11.0-16.0); White Blood Count 10.1 X10*3/uL (4.8-10.8)
--- NOTE | 2024-07-06 15:32 | PC.NURSE ---
epidemiology intern at bedside. patient asked if she had any thoughts of self harm or wanting to not be alive anymore. patient denied any thoughts. Pt denies any actions. no notebale trauma or wounds and pt denies taking any extra medication today. pt has significant hx of SI attempt in past.
[2024-07-06] MEDS: methylPREDNISolone Sod Succ 125 MG/2 ML VIAL IVPUSH (15:42)
--- NOTE | 2024-07-06 15:48 | PC.NURSE ---
patient somnolent but easily arousable to verbal stimuli.
[2024-07-06 15:53] LABS: Albumin Level 3.8 g/dL (3.5-5.0); Anion Gap 29 (12-20); Aspartate Amino Transferase 38 U/L (5-31); Bilirubin Total 0.3 mg/dL (0.0-1.0); Blood Urea Nitrogen 34 mg/dL (9-16); Calcium 9.3 mg/dL (8.4-10.2); Carbon Dioxide 15 mmol/L (22-29); Chloride 102 mmol/L (96-108); Creatinine Clr Calc Pharmacy 28.5; Estimated Glomerular Filt Rate 25; Glucose Random 102 mg/dL (60-115); Magnesium 1.7 mg/dL (1.6-2.6); Potassium 5.1 mmol/L (3.3-5.1); Sodium 141 mmol/L (135-145); Total Protein 7.1 g/dL (6.5-8.0)
--- NOTE | 2024-07-06 15:56 | ED.GENADULT ---
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 Marijuana (THC) Screen (Not Detect) Ethyl Alcohol mg/dL Influenza Type A (PCR) (Negative) Influenza Type B (PCR) (Negative) RSV RNA Qual (PCR) (Negative) SARS-CoV-2 RNA (RT-PCR) (Negative) Critical Care Time Critical Care Time Critical Care Time: Yes Total Critical Care Time: 35 Attestation: The patient was critically ill with a high probability of imminent or life-threatening deterioration. ?I spent greater than 30 minutes of discontinuous time evaluating the patient, delivering critical care at the bedside, discussing evaluating data with consultants. ?Critical care time does not include time spent performing separately billable procedures or teaching. ?Time spent performing critical care with 35 minutes. Discharge Plan Discharge Clinical Impression: Acute kidney injury, Increased anion gap metabolic acidosis, Altered mental status, Acute hypotension Patient Disposition: Admitted As Inpatient
[2024-07-06 16:15] LABS: Influenza A PCR NEGATIVE (Negative); Influenza B PCR NEGATIVE (Negative); Resp Syncy Virus RNA Qual PCR NEGATIVE (Negative); SARS COV2 PCR INHOUSE NEGATIVE (Negative)
--- NOTE | 2024-07-06 16:25 | ECG_ITS ---
Test Reason : hypotensive Blood Pressure : / mmHG Vent. Rate : 105 BPM Atrial Rate : 105 BPM P-R Int : 140 ms QRS Dur : 094 ms QT Int : 368 ms P-R-T Axes : 050 054 039 degrees QTc Int : 486 ms Sinus tachycardia Nonspecific ST abnormality Abnormal ECG When compared with ECG of 08-DEC-2020 20:43, Nonspecific T wave abnormality has replaced inverted T waves in Inferior leads QT has lengthened Referred By: Jeevan Fairbanks Electronically Signed By:ARIC DENSON MD
[2024-07-06 16:28] LABS: Appearance Urine Cloudy; Color Urine Yellow; Glucose Urine UA Negative (Negative); Leukocyte Esterase Urine Moderate (2+) (Negative); Nitrite Urine Negative (Negative); Specific Gravity - Urine 1.015 (1.005-1.025); UMIC TRIGGER UACC YES; Urine Blood Negative (Negative); Urine Ketones Negative (Negative); Urine Protein 30 (1+) mg/dL (Neg-Trace)
[2024-07-06] MEDS: Lactated Ringers 1,000 ML 999 ML IV ×2 (16:30→17:44)
[2024-07-06 16:38] LABS: Alanine Aminotransferase 26 U/L (0-31); Alkaline Phosphatase 143 U/L (39-117)
[2024-07-06 16:44] LABS: C Reactive Protein 1.97 mg/dL (< or = 0.50); Ethanol 71 mg/dL; Lipase 12 U/L (8-78)
[2024-07-06 16:47] LABS: UPreg QC Valid YES; Urine Pregnancy NEGATIVE (NEGATIVE)
[2024-07-06 16:48] LABS: Glucose, Whole Blood 82 mg/dL (60-115)
[2024-07-06 16:52] LABS: B Type Natriuretic Peptide < 10 pg/mL (<100)
[2024-07-06 16:55] LABS: Troponin-I High Sensitivity 11.9 ng/L (<3.5-17.0)
[2024-07-06 17:00] LABS: UACC Culture Trigger YES
[2024-07-06 17:01] LABS: Bacteria Urine 3+ (None Seen); RBC Urine 0-2 /HPF (0-2)
[2024-07-06 17:23] LABS: VBG Base Excess -10.1 mmol/L; VBG HCO3 17 mmol/L (22-26); VBG pCO2 43 mmHg; VBG pO2 62 mmHg
[2024-07-06 17:26] LABS: Venous Blood Gas Refer to POC result
[2024-07-06] MEDS: cefTRIAXone sodium 2 GM VIAL IVPUSH (17:27)
[2024-07-06 17:36] LABS: Osmolality, Serum 307 mosm/kg (281-305)
[2024-07-06 17:37] LABS: Amphetamine Screen Urine Not Detected (Not Detect); Barbiturates, Urine Not Detected (Not Detect); Benzodiazepines Screen Urine Not Detected (Not Detect); Buprenorphine Scr Not Detected (Not Detect); Cannabinoid Screen Urine Not Detected (Not Detect); Cocaine Screen Urine POSITIVE (Not Detect); Fentanyl, urine Not Detected (Not Detect); Methadone Screen, Urine Not Detected (Not Detect); Opiate Screen Urine Not Detected (Not Detect); Oxycodone Screen Urine Not Detected (Not Detect); Phencyclidine Screen Urine Not Detected (Not Detect)
[2024-07-06 17:38] LABS: Acetaminophen LAB 4 mcg/mL (<30); Salicylate < 5.0 mg/dL (15-30)
[2024-07-06 17:40] LABS: Lactic Acid 4.2 mmol/L (0.5-2.0)
[2024-07-06 18:00] LABS: Procalcitonin 0.17 ng/mL
[2024-07-06 18:09] LABS: Glucose, Whole Blood 108 mg/dL (60-115)
--- NOTE | 2024-07-06 18:15 | PC.NURSE ---
patient has become increasingly more somnolent and harder to arouse. pt only arousable to aggressive sternal stimuli and loud verbal. patient barely orients before falling back asleep. pt unable to follow commands well. MD and spanish medical interpreter back at beside to reassess. patient also needing supplemental oxygen requirement now. pt place on 2L NC d/t desaturations 87-88% on RA.
[2024-07-06] MEDS: Naloxone HCl 2 MG/2 ML SYRINGE IVPUSH (18:41)
[2024-07-06 18:55] LABS: Thyroid Stimulating Hormone 1.53 uIU/mL (0.32-4.0)
[2024-07-06 19:11] LABS: VBG Base Excess -8.6 mmol/L; VBG HCO3 16 mmol/L (22-26); VBG pCO2 30 mmHg; VBG pH 7.32 (7.32-7.43); VBG pO2 206 mmHg
[2024-07-06 19:15] LABS: Reflex Lactate? Lactic Acid Added
[2024-07-06 19:19] LABS: Anion Gap 24 (12-20); Blood Urea Nitrogen 32 mg/dL (9-16); Calcium 8.5 mg/dL (8.4-10.2); Carbon Dioxide 15 mmol/L (22-29); Chloride 106 mmol/L (96-108); Creatinine Clr Calc Pharmacy 43.2; Estimated Glomerular Filt Rate 41; Glucose Random 116 mg/dL (60-115); Potassium 5.4 mmol/L (3.3-5.1); Sodium 140 mmol/L (135-145)
[2024-07-06 19:22] LABS: Venous Blood Gas Refer to POC result
[2024-07-06 19:59] LABS: ~Lactic Acid-LAB USE ONLY 1.2 mmol/L (0.5-2.0)
--- NOTE | 2024-07-06 20:35 | ECG_ITS ---
Test Reason : hypotension Blood Pressure : / mmHG Vent. Rate : 110 BPM Atrial Rate : 110 BPM P-R Int : 154 ms QRS Dur : 088 ms QT Int : 350 ms P-R-T Axes : 057 032 029 degrees QTc Int : 473 ms Sinus tachycardia Otherwise normal ECG When compared with ECG of 06-JUL-2024 15:17, No significant change was found Referred By: Jeevan Fairbanks Electronically Signed By:ARIC DENSON MD
--- NOTE | 2024-07-06 21:41 | P.HPHOSP_ITS ---
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 She stated that she had fibromyalgia and chronic back pain that requires surgery. She stated that today she was drinking beers with a friend. Upon questioning about use of illicit drugs such as cocaine she denied it. She said that her friend gave her a PO for migraine enteritis why she is seeing H remains positive for cocaine. She denied any headache, dizziness, chest pain, shortness of breath, nausea, vomiting or diarrhea. She does have chronic pitting edema to the lower extremities. She denies tobacco smoking. Upon arrival to the emergency department she was found to be very somnolent and hypotensive, 60/42. Her oxygen saturation has remained normal and she is slightly tachycardic. Treated with Narcan without response. Blood workup showed no leukocytosis. Hemoglobin is 11.7 and platelets are normal. Initial venous pH is 7.20, most recently 7.32, with normal pCO2. Also her creatinine was found to be 2.05 times trending down, 1.35. Bicarb is 15, anion gap 29 and BUN 34. Serum osmolality is 307 and lactic acidosis of 4.2, which normalized after IV fluids. TSH and procalcitonin are normal. LFTs are remarkable for slight elevation of AST, lipase and alk-phos. Bilirubin and ALT are normal. Urinalysis consistent with urinary tract infection. Head CT scan showed no acute intracranial abnormalities. Abdominal pelvis CT scan showed no acute findings. It showed hepatosplenomegaly with fatty infiltration and distended gallbladder. She has a recent hospitalization at [facility] with orthostatic hypotension. A stimulation test was performed with good response. There was a concern that probably the amitriptyline was causing this. ED tx: NS 4 L bolus, ceftriaxone 1 g IV Solu-Medrol 125 mg IV, Narcan 2 mg IV Review of Systems 2 Review of Systems: All 12 systems were reviewed and normal except as noted in HPI. [facility] Medical History (Updated 07/06/24 @ 22:13 by Alexander Velásquez MD) Acute kidney injury Obesity due to excess calories HLD (hyperlipidemia) DM2 (diabetes mellitus, type 2) Sleep apnea Carpal tunnel syndrome on both sides Gastritis GERD (gastroesophageal reflux disease) Fibromyalgia Migraine Asthma Urinary incontinence Herniated disc Arthritis associated with diabetes Anxiety Depression HTN (hypertension) Family History Father Rheumatoid arthritis Mother No problems noted. Surgical History History of carpal tunnel release History of tubal ligation Social History Household Members: None Alcohol intake: never Advance Directives: No Advance Directives Information Provided: Yes Do you have a plan to hurt others: No Plan Meds Allergies Allergy/AdvReac Type Severity Reaction Status Date / Time No Known Allergies Allergy Verified 07/06/24 15:22 Active Medications: Current Medications Acetaminophen (Acetaminophen 325 Mg Tablet) 975 mg PO Q6H PRN PRN Reason: Pain, Mild (Pain Scale 1-3), fever or headache Albuterol/Ipratropium (Albuterol/Iprat 2.5/0.5mg 3 Ml Ampul.Neb) 3 ml INHALE ONCE STA Stop: 07/06/24 21:40 Ceftriaxone Sodium (Ceftriaxone Sodium 1 Gm Vial) 1 gm IVPUSH Q24H LM Enoxaparin Sodium (Enoxaparin Sodium 40 Mg/0.4 Ml Syringe) 40 mg SUBCUT Q24H LM Glucose (Glucose Gel 15 Gm Gel..Gram.) 15 gm PO Q15M PRN; Protocol PRN Reason: per Hypoglycemia Standing Ord. Lactated Ringer's (Lr) 1,000 mls @ 125 mls/hr IVCONT .Q8H LM Dextrose (D10) 250 mls @ 750 mls/hr IV Q15M PRN; Protocol PRN Reason: per Hypoglycemia Standing Ord. Thiamine HCl 100 mg/ Sodium (Chloride) 101 mls @ 202 mls/hr IV ONCE STA Stop: 07/06/24 22:09 Insulin Glargine (Insulin Glargine,Hum.Rec.Anlog 100 Unit/Ml 10 Ml Vial) 15 unit SUBCUT ONCE ONE Stop: 07/06/24 21:39 Insulin Human Lispro (Insulin Lispro 100 Unit/Ml 3 Ml Vial) [facility]; Protocol Melatonin (Melatonin 3 Mg Tablet) 6 mg PO BEDTIME PRN PRN Reason: Insomnia Sodium Chloride (0.9 % Sodium Chloride Flush 3 Ml Syringe) 3 ml IVFLUSH [facility] Home Medications ?Medication ?Instructions ?Recorded ?Confirmed ?Last Taken ?Type amitriptyline 75 mg tablet 75 mg PO BEDTIME 05/05/21 05/05/21 Unknown History aspirin 81 mg tablet,delayed 81 mg PO DAILY 05/05/21 05/05/21 Unknown History release (Adult Low Dose Aspirin) atorvastatin 40 mg tablet 40 mg PO BEDTIME 05/05/21 05/05/21 Unknown History blood-glucose meter (FreeStyle 05/05/21 05/05/21 Unknown History Lite Meter kit) citalopram 40 mg tablet 40 mg PO DAILY 05/05/21 05/05/21 Unknown History clonazepam 1 mg tablet 1 mg PO DAILY PRN 05/05/21 05/05/21 Unknown History docusate sodium 100 mg capsule 100 mg PO DAILY PRN 05/05/21 05/05/21 Unknown History gabapentin 400 mg capsule 400 mg PO BID 05/05/21 05/05/21 Unknown History hydroxyzine HCl 50 mg tablet 50 mg PO BID PRN 05/05/21 05/05/21 Unknown History insulin lispro 100 unit/mL 10 unit subcut TID 05/05/21 05/05/21 Unknown History subcutaneous pen (Humalog KwikPen (U-100) Insulin) lisinopril 40 mg tablet 40 mg PO DAILY 05/05/21 05/05/21 Unknown History loratadine 10 mg tablet (Allergy 10 mg PO DAILY 05/05/21 05/05/21 Unknown History Relief (loratadine)) metformin 1,000 mg tablet,extended 1,000 mg PO BID 05/05/21 05/05/21 Unknown History release 24hr (osmotic) nabumetone 500 mg tablet 500 mg PO BID 05/05/21 05/05/21 Unknown History oxcarbazepine 300 mg tablet 300 mg PO BID 05/05/21 05/05/21 Unknown History (Trileptal) pantoprazole 40 mg granules 40 mg PO DAILY 05/05/21 05/05/21 Unknown History delayed-release for susp in packet (Protonix) prazosin 2 mg capsule 2 mg PO BEDTIME 05/05/21 05/05/21 Unknown History quetiapine 300 mg tablet (Seroquel) 300 mg PO BEDTIME 05/05/21 05/05/21 Unknown History topiramate 50 mg tablet 50 mg PO BID 05/05/21 05/05/21 Unknown History Physical Exam 2 Vital Signs and Narrative: Vital Signs: Last Vital Signs Temp 98.8 F 07/06/24 19:55 Pulse 107 H 07/06/24 19:55 Resp 23 H 07/06/24 19:55 BP 102/48 L 07/06/24 19:55 Pulse Ox 94 07/06/24 19:55 O2 Del Method Room Air 07/06/24 19:55 O2 Flow Rate 2 07/06/24 18:43 BMI result Body Mass Index 28.3 Constitutional - Awake and Alert, No apparent distress. Pleasant. Cooperative. Obese. Afebrile. HEENT - PER, EOMI. Dry oral mucosa. Heart - S1S2, RRR, No murmurs Lungs - Normal lung expansion, Normal respiratory effort, No respiratory distress. Mild expiratory wheezes. No crackles. No rhonchi. Abdomen - nondistended.. PICC discomfort to palpation. No rebound no guarding. - No CVA tenderness Extremities - pitting edema of the lower extremities Musculoskeletal - Normal inspection, normal ROM Skin - Warm/Dry Neurological - Alert & oriented x3. No facial droop. No focal weakness grossly noted. Normal speech. Psychological - Appropriate affect Results Labs 07/06/24 15:17 07/06/24 19:02 Labs: Laboratory Results - last 24 hr 07/06/24 07/06/24 07/06/24 15:06 15:17 16:20 MCV 82.9 MCH 26.7 L MCHC 32.1 RDW 14.1 Plt Count 317 MPV 9.5 Immature Gran % (Auto) 0.6 H Neut % (Auto) 74.2 H Lymph % (Auto) 20.0 [place] % (Auto) 4.5 Eos % (Auto) 0.2 Baso % (Auto) 0.5 Lymph # (Auto) 2.0 [place] # (Auto) 0.5 Eos # (Auto) 0.0 Baso # (Auto) 0.1 Abs Immat Gran (auto) 0.06 H Absolute Neuts (auto) 7.5 Absolute Nucleated RBC 0.000 Nucleated RBC % (auto) 0.0 VBG pH VBG pCO2 VBG pO2 VBG HCO3 VBG O2 Saturation VBG Base Excess Anion Gap 29 H Estim Creat Clear Calc 28.5 Estimated GFR 25 POC Glucose 107 Random Glucose 102 Osmolality Lactic Acid Lactic Acid F/U @ 2Hr Calcium 9.3 Magnesium 1.7 Total Bilirubin 0.3 AST 38 H ALT 26 Alkaline Phosphatase 143 H Total Creatine Kinase 231 H Troponin I High Sens 11.9 C-Reactive Protein 1.97 H B-Natriuretic Peptide < 10 Total Protein 7.1 Albumin 3.8 Lipase 12 Procalcitonin 0.17 TSH 1.53 Hold Yellow Top Urine Color Yellow Urine Appearance Cloudy Urine pH 5.0 Ur Specific [place] 1.015 Urine Protein 30 (1+) H Urine Glucose (UA) Negative Urine Ketones Negative Urine Blood Negative Urine Nitrite Negative Ur Leukocyte Esterase Moderate (2+) H Urine RBC 0-2 Urine WBC 11-20 H Ur Squamous Epith Cells 3-5 Urine Bacteria 3+ Hyaline Casts 3-5 Urine Test NEGATIVE Salicylates Urine Opiates Screen Not Detected Ur Buprenorphine Scrn Not Detected Ur Oxycodone Screen Not Detected Urine Methadone Screen Not Detected Urine Fentanyl Screen Not Detected Acetaminophen Ur Barbiturates Screen Not Detected Ur Phencyclidine Scrn Not Detected Ur Amphetamines Screen Not Detected U Benzodiazepines Scrn Not Detected Urine Cocaine Screen POSITIVE H U Marijuana (THC) Screen Not Detected Ethyl Alcohol 71 Influenza Type A (PCR) NEGATIVE Influenza Type B (PCR) NEGATIVE RSV RNA Qual (PCR) NEGATIVE SARS-CoV-2 RNA (RT-PCR) NEGATIVE 07/06/24 07/06/24 07/06/24 16:43 17:02 17:03 MCV MCH MCHC RDW Plt Count MPV Immature Gran % (Auto) Neut % (Auto) Lymph % (Auto) [place] % (Auto) Eos % (Auto) Baso % (Auto) Lymph # (Auto) [place] # (Auto) Eos # (Auto) Baso # (Auto) Abs Immat Gran (auto) Absolute Neuts (auto) Absolute Nucleated RBC Nucleated RBC % (auto) VBG pH VBG pCO2 VBG pO2 VBG HCO3 VBG O2 Saturation VBG Base Excess Anion Gap Estim Creat Clear Calc Estimated GFR POC Glucose 82 Random Glucose Osmolality Lactic Acid 4.2 H* Lactic Acid F/U @ 2Hr Calcium Magnesium Total Bilirubin AST ALT Alkaline Phosphatase Total Creatine Kinase Troponin I High Sens C-Reactive Protein B-Natriuretic Peptide Total Protein Albumin Lipase Procalcitonin TSH Hold Yellow Top See Note Urine Color Urine Appearance Urine pH Ur Specific [place] Urine Protein Urine Glucose (UA) Urine Ketones Urine Blood Urine Nitrite Ur Leukocyte Esterase Urine RBC Urine WBC Ur Squamous Epith Cells Urine Bacteria Hyaline Casts Urine Test Salicylates Urine Opiates Screen Ur Buprenorphine Scrn Ur Oxycodone Screen Urine Methadone Screen Urine Fentanyl Screen Acetaminophen Ur Barbiturates Screen Ur Phencyclidine Scrn Ur Amphetamines Screen U Benzodiazepines Scrn Urine Cocaine Screen U Marijuana (THC) Screen Ethyl Alcohol Influenza Type A (PCR) Influenza Type B (PCR) RSV RNA Qual (PCR) SARS-CoV-2 RNA (RT-PCR) 07/06/24 07/06/24 07/06/24 17:08 17:17 18:04 MCV MCH MCHC RDW Plt Count MPV Immature Gran % (Auto) Neut % (Auto) Lymph % (Auto) [place] % (Auto) Eos % (Auto) Baso % (Auto) Lymph # (Auto) [place] # (Auto) Eos # (Auto) Baso # (Auto) Abs Immat Gran (auto) Absolute Neuts (auto) Absolute Nucleated RBC Nucleated RBC % (auto) VBG pH 7.20 L* VBG pCO2 43 VBG pO2 62 VBG HCO3 17 L VBG O2 Saturation 80.0 VBG Base Excess -10.1 Anion Gap Estim Creat Clear Calc Estimated GFR POC Glucose 108 Random Glucose Osmolality 307 H Lactic Acid Lactic Acid F/U @ 2Hr Calcium Magnesium Total Bilirubin AST ALT Alkaline Phosphatase Total Creatine Kinase Troponin I High Sens C-Reactive Protein B-Natriuretic Peptide Total Protein Albumin Lipase Procalcitonin TSH Hold Yellow Top Urine Color Urine Appearance Urine pH Ur Specific [place] Urine Protein Urine Glucose (UA) Urine Ketones Urine Blood Urine Nitrite Ur Leukocyte Esterase Urine RBC Urine WBC Ur Squamous Epith Cells Urine Bacteria Hyaline Casts Urine Test Salicylates < 5.0 L Urine Opiates Screen Ur Buprenorphine Scrn Ur Oxycodone Screen Urine Methadone Screen Urine Fentanyl Screen Acetaminophen 4 Ur Barbiturates Screen Ur Phencyclidine Scrn Ur Amphetamines Screen U Benzodiazepines Scrn Urine Cocaine Screen U Marijuana (THC) Screen Ethyl Alcohol Influenza Type A (PCR) Influenza Type B (PCR) RSV RNA Qual (PCR) SARS-CoV-2 RNA (RT-PCR) 07/06/24 07/06/24 07/06/24 19:02 19:05 19:33 MCV MCH MCHC RDW Plt Count MPV Immature Gran % (Auto) Neut % (Auto) Lymph % (Auto) [place] % (Auto) Eos % (Auto) Baso % (Auto) Lymph # (Auto) [place] # (Auto) Eos # (Auto) Baso # (Auto) Abs Immat Gran (auto) Absolute Neuts (auto) Absolute Nucleated RBC Nucleated RBC % (auto) VBG pH 7.32 VBG pCO2 30 VBG pO2 206 VBG HCO3 16 L VBG O2 Saturation 99.0 VBG Base Excess -8.6 Anion Gap 24 H Estim Creat Clear Calc 43.2 Estimated GFR 41 POC Glucose Random Glucose 116 H Osmolality Lactic Acid Lactic Acid F/U @ 2Hr 1.2 Calcium 8.5 D Magnesium Total Bilirubin AST ALT Alkaline Phosphatase Total Creatine Kinase Troponin I High Sens C-Reactive Protein B-Natriuretic Peptide Total Protein Albumin Lipase Procalcitonin TSH Hold Yellow Top Urine Color Urine Appearance Urine pH Ur Specific [place] Urine Protein Urine Glucose (UA) Urine Ketones Urine Blood Urine Nitrite Ur Leukocyte Esterase Urine RBC Urine WBC Ur Squamous Epith Cells Urine Bacteria Hyaline Casts Urine Test Salicylates Urine Opiates Screen Ur Buprenorphine Scrn Ur Oxycodone Screen Urine Methadone Screen Urine Fentanyl Screen Acetaminophen Ur Barbiturates Screen Ur Phencyclidine Scrn Ur Amphetamines Screen U Benzodiazepines Scrn Urine Cocaine Screen U Marijuana (THC) Screen Ethyl Alcohol Influenza Type A (PCR) Influenza Type B (PCR) RSV RNA Qual (PCR) SARS-CoV-2 RNA (RT-PCR) Imaging Radiologist's Impressions: Impressions Chest X-Ray 07/06/24 16:25 IMPRESSION: 1. Increased attenuation over the left lung field probably due to oblique technique. 2. No dense focal consolidation pneumonia. 3. Widened mediastinum exaggerated by AP and oblique technique. Electronically signed by: Sailaja Mobley MD 07/06/2024 04:55 PM EST Abdomen/Pelvis CT 07/06/24 17:19 IMPRESSION: No acute left lower quadrant finding. Mildly distended gallbladder. Mild hepatosplenomegaly. Fatty infiltration of the liver. Suspect small hiatus hernia. Electronically signed by: Ant Barnard MD 07/06/2024 06:03 PM EST RP Head CT 07/06/24 18:29 IMPRESSION: 1. No evidence of acute intracranial hemorrhage or edematous territorial infarction. 2. Moderate underlying microangiopathy and generalized cerebral volume loss. Electronically signed by: Rene Recinos DO 07/06/2024 07:54 PM EST RP Assessment and Plan (1) Acute hypotension: Status: Acute (2) Acute kidney injury: Status: Acute Plan Becky Springer is a 53 y/o woman admitted with: * Hypotension, resolved. Likely multifactorial: Polypharmacy, recent use of alcohol --> dehydration and possible sepsis due to UTI. Admit to hospitalist service. Continue IV fluids. Continue empiric IV antibiotic therapy with ceftriaxone. Blood and urine culture obtained -will follow results. Hold sedatives including amitriptyline, clonazepam, Seroquel, oxycodone and gabapentin. * Lactic acidosis, likely multifactorial: Hypotension, metformin use, possible severe sepsis. Blood culture obtained we will follow results. * Acute kidney injury. Likely multifactorial: recent use of alcohol --> dehydration, hypotension. Hold lisinopril. Continue IV fluids. Continue to monitor renal function. * Hyperkalemia, mild. Likely secondary to above. Continue IV fluids. Continue to monitor K level. * High anion gap metabolic acidosis, improving. Likely secondary to LUCIA. Continue to monitor bicarb. * Back pain, chronic. Acetaminophen and tramadol as needed. Follow as an outpatient with Neurosurgery. * Essential hypertension. Lisinopril on hold due to recent hypotension. * Hyperlipidemia. Continue statin. * Type 2 diabetes mellitus. Lantus and insulin sliding scale. * Asthma. Breathing treatment as needed. * JACE. Nocturnal CPAP. * Obesity. Weight loss. * Bipolar disorder/anxiety. Seroquel and clonazepam on hold for now due to recent events somnolence and will restart tomorrow in the morning. * History of migraines. Amitriptyline on hold due to recent event with somnolence. DVT prophylaxis: Lovenox Code status: Full Patient will need hospitalization for at least 2 midnights for hypotension and possible severe sepsis treatment with IV fluids and empiric IV antibiotic therapy. Quality Stroke Does the patient have a stroke diagnosis?: No VTE Prior VTE?: No VTE Risk Level:: Medical - moderate - high VTE Device Contraindication: Treatment Not Indicated VTE Drug Contraindication: N/A - Med Ordered
[2024-07-06] MEDS: Albuterol/Iprat 2.5/0.5MG 3 ML AMPUL.NEB INHALE (21:51)
[2024-07-06] MEDS: Insulin Glargine,Hum.rec.anlog 100 UNIT/ML 10 ML VIAL 15 UNIT SUBCUT (22:03)
[2024-07-06] MEDS: Thiamine HCL 100 MG in 0.9 % Sodium Chloride 100 ML 202 MG IV (22:04)
[2024-07-06] MEDS: Lactated Ringers 1,000 ML 125 ML IVCONT (22:06)
[2024-07-06] MEDS: Insulin Lispro 100 UNIT/ML 3 ML VIAL SUBCUT (22:06)
[2024-07-06 22:15] LABS: Glucose, Whole Blood 198 mg/dL (60-115)
[2024-07-07] VITALS (7 sets, daily range): BP systolic 114–138; BP diastolic 63–85; PULSE 86–109; RESP 16–22; TEMP 36.4–36.8; O2SAT 94–98; BMI 54.0
--- NOTE | 2024-07-07 03:07 | PC.NURSE ---
Med req completed. Tresckow text to the hospitalist for home med orders.
--- NOTE | 2024-07-07 03:19 | PC.NURSE ---
Per Dr Sharma, home meds are on hold at the moment as pt became somnolence and hypotensive earlier in the day. Orders for insomnia placed in SEP.
[2024-07-07] MEDS: QUEtiapine Fumarate 25 MG TABLET PO (03:27)
[2024-07-07 04:22] LABS: MANUAL DIFF FLAG NO
[2024-07-07 04:24] LABS: Basophils Percent Auto 0.1 % (0-2); Hematocrit 32.7 % (37.0-47.0); Hemoglobin 10.4 g/dl (12.0-16.0); Imm Gran Abs Auto 0.04 X10*3/uL (0.00-0.03); Imm Gran Pct Auto 0.5 % (0.0-0.4); Lymphocytes Absolute Auto 1.1 X10*3/uL (1.2-4.9); Lymphocytes Percent Auto 14.4 % (20-40); Mean Corpuscular HGB Conc 31.8 g/dl (31.0-35.0); Mean Corpuscular Hemoglobin 26.7 pg (27.0-33.0); Mean Corpuscular Volume 83.8 fL (80.0-98.0); Mean Platelet Volume 9.4 fL (9.4-12.3); Monocytes Absolute Auto 0.3 X10*3/uL (0.1-1.2); Monocytes Percent Auto 3.5 % (2-11); Neutrophils Absolute Auto 6.1 x10*3/uL (2.0-8.3); Neutrophils Percent Auto 81.5 % (45-73); Platelet Count 292 X10*3/uL (160-400); Red Cell Distribution Width 14.1 % (11.0-16.0); White Blood Count 7.5 X10*3/uL (4.8-10.8)
[2024-07-07 04:42] LABS: Alanine Aminotransferase 31 U/L (0-31); Albumin Level 3.4 g/dL (3.5-5.0); Alkaline Phosphatase 131 U/L (39-117); Anion Gap 17 (12-20); Aspartate Amino Transferase 50 U/L (5-31); Bilirubin Total 0.2 mg/dL (0.0-1.0); Blood Urea Nitrogen 31 mg/dL (9-16); Calcium 8.1 mg/dL (8.4-10.2); Carbon Dioxide 20 mmol/L (22-29); Chloride 105 mmol/L (96-108); Creatinine Clr Calc Pharmacy 74.3; Estimated Glomerular Filt Rate 58; Glucose Random 255 mg/dL (60-115); Magnesium 1.8 mg/dL (1.6-2.6); Potassium 4.9 mmol/L (3.3-5.1); Sodium 137 mmol/L (135-145); Total Protein 6.5 g/dL (6.5-8.0)
[2024-07-07] MEDS: Omeprazole 20 MG CAPSULE.DR PO ×2 (06:01→16:49)
[2024-07-07] MEDS: Lactated Ringers 1,000 ML 125 ML IVCONT ×2 (06:03→13:49)
[2024-07-07 07:32] LABS: Glucose, Whole Blood 211 mg/dL (60-115)
[2024-07-07] MEDS: Insulin Lispro 100 UNIT/ML 3 ML VIAL SUBCUT ×4 (07:45→21:34)
[2024-07-07] MEDS: 0.9 % Sodium Chloride Flush 3 ML SYRINGE IVFLUSH ×2 (07:45→16:50)
--- NOTE | 2024-07-07 09:27 | PHA.MEDREC ---
Addendum entered by Deng Araujo 07/07/24 10:02: reviewed Original Note: Pharmacy Consult ? Medication Reconciliation Pharmacy has reviewed the medication reconciliation done by nursing. Patient was discharged from [facility] 2 months ago. we received the med list from [facility] of last visit. Spoke to patient to confirm some discrepancy in claims and med list. patient states she is no longer on Oxycarbazepine 300 mg , last filled 10/14/23 for 30 days supply, Pantoprazole 40 mg ( on Omeprazole 20 mg) Patient confirmed Lantus 35 units at bedtime, Insulin Lispro 10 units tid, Trulicity 3 mg every Sunday, last dose 07/02/24, Clonazepam is 1 mg TID (not once daily) , Gabapentin is 500 mg TID (100 mg + 400 mg tablets), Prazosin is 3 mg at bedtime ( 3X 1 mg ) NOT 2 mg.
[2024-07-07] MEDS: Enoxaparin Sodium 40 MG/0.4 ML SYRINGE SUBCUT (10:58)
[2024-07-07] MEDS: Cyanocobalamin (Vitamin B-12) 500 MCG TABLET PO (10:58)
[2024-07-07] MEDS: Aspirin Enteric Coated 81 MG TABLET.DR PO (10:58)
[2024-07-07] MEDS: Cholecalciferol (Vitamin D3) 25 MCG TABLET 50 MCG PO (10:58)
[2024-07-07] MEDS: Loratadine 10 MG TABLET PO (10:58)
[2024-07-07] MEDS: traMADoL HCL 50 MG TABLET PO ×2 (11:01→20:25)
[2024-07-07 11:12] LABS: Glucose, Whole Blood 208 mg/dL (60-115)
--- NOTE | 2024-07-07 11:33 | P.PNIM_ITS ---
Subjective Subjective Date of Service: 07/07/24 Interval History: Being followed for back pain and bilateral lower chest /upper abdomen discomfort, denies pain with coughing, no recent fall or injury, no nausea, no vomiting, denies headache, no dizziness, no shortness a breath, no chest pain, no nausea, no vomiting or diarrhea, urine toxicology positive for cocaine. History obtained via sash sticker. Review of Systems All other system reviewed and are negative Physical Exam 2 Vital Signs: Vital Signs: Last Vital Signs Temp 97.8 F 07/07/24 10:49 Pulse 106 H 07/07/24 10:49 Resp 18 07/07/24 10:49 BP 134/85 07/07/24 10:49 Pulse Ox 98 07/07/24 10:49 O2 Del Method Room Air 07/07/24 10:49 O2 Flow Rate 2 07/06/24 18:43 BMI result Body Mass Index 54.0 Const: Other: General awake alert x3, in no acute distress. Moist mucous membranes, anicteric sclera Neck no JVD. CVS regular rate rhythm, Respiratory lungs clear to auscultation, no respiratory distress, Gastrointestinal abdomen soft, non tender, bowel sounds audible, no guarding , no rigidity. Neuro non focal Extremities no edema Skin no rash Psych appropriate affect Objective Data Active Medications Acetaminophen (Acetaminophen 325 Mg Tablet) 975 mg PO Q6H PRN PRN Reason: Pain, Mild (Pain Scale 1-3), fever or headache Albuterol/Ipratropium (Albuterol/Iprat 2.5/0.5mg 3 Ml Ampul.Neb) 3 ml INHALE Q4H PRN PRN Reason: wheezing Aspirin (Aspirin Enteric Coated 81 Mg Tablet.) 81 mg PO DAILY [facility] Last Admin: 07/07/24 10:58 Dose: 81 mg Documented By: ANGEL Atorvastatin Calcium (Atorvastatin Calcium 40 Mg Tablet) 40 mg PO BEDTIME [facility] Ceftriaxone Sodium (Ceftriaxone Sodium 1 Gm Vial) 1 gm IVPUSH Q24H [facility] Clonazepam (Clonazepam 1 Mg Tablet) 1 mg PO DAILY PRN PRN Reason: Anxiety Cyanocobalamin (Cyanocobalamin (Vitamin B-12) 500 Mcg Tablet) 500 mcg PO DAILY [facility] Last Admin: 07/07/24 10:58 Dose: 500 mcg Documented By: ANGEL Docusate Sodium (Docusate Sodium 100 Mg Capsule) 100 mg PO DAILY PRN PRN Reason: Constipation Enoxaparin Sodium (Enoxaparin Sodium 40 Mg/0.4 Ml Syringe) 40 mg SUBCUT Q24H [facility] Last Admin: 07/07/24 10:58 Dose: 40 mg Documented By: ANGEL Glucose (Glucose Gel 15 Gm Gel..Gram.) 15 gm PO Q15M PRN; Protocol PRN Reason: per Hypoglycemia Standing Ord. Lactated Ringer's (Lr) 1,000 mls @ 125 mls/hr IVCONT .Q8H [facility] Last Admin: 07/07/24 06:03 Dose: 125 mls/hr Documented By: RUBENS Dextrose (D10) 250 mls @ 750 mls/hr IV Q15M PRN; Protocol PRN Reason: per Hypoglycemia Standing Ord. Insulin Glargine (Insulin Glargine,Hum.Rec.Anlog 100 Unit/Ml 10 Ml Vial) 35 unit SUBCUT BEDTIME [facility] Insulin Human Lispro (Insulin Lispro 100 Unit/Ml 3 Ml Vial) 0 unit SUBCUT QIDACHS [facility]; Protocol Last Admin: 07/07/24 10:58 Dose: 4 unit Documented By: ANGEL Loratadine (Loratadine 10 Mg Tablet) 10 mg PO DAILY [facility] Last Admin: 07/07/24 10:58 Dose: 10 mg Documented By: ANGEL Melatonin (Melatonin 3 Mg Tablet) 6 mg PO BEDTIME PRN PRN Reason: Insomnia Omeprazole (Omeprazole 20 Mg Capsule.Dr) 20 mg PO DAILY@0630 [facility] Last Admin: 07/07/24 06:01 Dose: 20 mg Documented By: RUBENS Sodium Chloride (0.9 % Sodium Chloride Flush 3 Ml Syringe) 3 ml IVFLUSH QSHIFT [facility] Last Admin: 07/07/24 07:45 Dose: 3 ml Documented By: OSWALDO Tramadol HCl (Tramadol Hcl 50 Mg Tablet) 50 mg PO Q8H PRN PRN Reason: back pain Last Admin: 07/07/24 11:01 Dose: 50 mg Documented By: ANGEL Vitamin D (Cholecalciferol (Vitamin D3) 25 Mcg Tablet) 50 mcg PO DAILY [facility] Last Admin: 07/07/24 10:58 Dose: 50 mcg Documented By: ANGEL Labs 07/07/24 04:01 07/07/24 04:01 Labs: Laboratory Results - last 24 hr 07/06/24 07/06/24 07/06/24 15:06 15:17 16:20 MCV 82.9 MCH 26.7 L MCHC 32.1 RDW 14.1 Plt Count 317 MPV 9.5 Immature Gran % (Auto) 0.6 H Neut % (Auto) 74.2 H Lymph % (Auto) 20.0 [place] % (Auto) 4.5 Eos % (Auto) 0.2 Baso % (Auto) 0.5 Lymph # (Auto) 2.0 [place] # (Auto) 0.5 Eos # (Auto) 0.0 Baso # (Auto) 0.1 Abs Immat Gran (auto) 0.06 H Absolute Neuts (auto) 7.5 Absolute Nucleated RBC 0.000 Nucleated RBC % (auto) 0.0 VBG pH VBG pCO2 VBG pO2 VBG HCO3 VBG O2 Saturation VBG Base Excess Anion Gap 29 H Estim Creat Clear Calc 28.5 Estimated GFR 25 POC Glucose 107 Random Glucose 102 Osmolality Lactic Acid Lactic Acid F/U @ 2Hr Calcium 9.3 Magnesium 1.7 Total Bilirubin 0.3 AST 38 H ALT 26 Alkaline Phosphatase 143 H Total Creatine Kinase 231 H Troponin I High Sens 11.9 C-Reactive Protein 1.97 H B-Natriuretic Peptide < 10 Total Protein 7.1 Albumin 3.8 Lipase 12 Procalcitonin 0.17 TSH 1.53 Hold Yellow Top Urine Color Yellow Urine Appearance Cloudy Urine pH 5.0 Ur Specific [place] 1.015 Urine Protein 30 (1+) H Urine Glucose (UA) Negative Urine Ketones Negative Urine Blood Negative Urine Nitrite Negative Ur Leukocyte Esterase Moderate (2+) H Urine RBC 0-2 Urine WBC 11-20 H Ur Squamous Epith Cells 3-5 Urine Bacteria 3+ Hyaline Casts 3-5 Urine Test NEGATIVE Salicylates Urine Opiates Screen Not Detected Ur Buprenorphine Scrn Not Detected Ur Oxycodone Screen Not Detected Urine Methadone Screen Not Detected Urine Fentanyl Screen Not Detected Acetaminophen Ur Barbiturates Screen Not Detected Ur Phencyclidine Scrn Not Detected Ur Amphetamines Screen Not Detected U Benzodiazepines Scrn Not Detected Urine Cocaine Screen POSITIVE H U Marijuana (THC) Screen Not Detected Ethyl Alcohol 71 Influenza Type A (PCR) NEGATIVE Influenza Type B (PCR) NEGATIVE RSV RNA Qual (PCR) NEGATIVE SARS-CoV-2 RNA (RT-PCR) NEGATIVE 07/06/24 07/06/24 07/06/24 16:43 17:02 17:03 MCV MCH MCHC RDW Plt Count MPV Immature Gran % (Auto) Neut % (Auto) Lymph % (Auto) [place] % (Auto) Eos % (Auto) Baso % (Auto) Lymph # (Auto) [place] # (Auto) Eos # (Auto) Baso # (Auto) Abs Immat Gran (auto) Absolute Neuts (auto) Absolute Nucleated RBC Nucleated RBC % (auto) VBG pH VBG pCO2 VBG pO2 VBG HCO3 VBG O2 Saturation VBG Base Excess Anion Gap Estim Creat Clear Calc Estimated GFR POC Glucose 82 Random Glucose Osmolality Lactic Acid 4.2 H* Lactic Acid F/U @ 2Hr Calcium Magnesium Total Bilirubin AST ALT Alkaline Phosphatase Total Creatine Kinase Troponin I High Sens C-Reactive Protein B-Natriuretic Peptide Total Protein Albumin Lipase Procalcitonin TSH Hold Yellow Top See Note Urine Color Urine Appearance Urine pH Ur Specific [place] Urine Protein Urine Glucose (UA) Urine Ketones Urine Blood Urine Nitrite Ur Leukocyte Esterase Urine RBC Urine WBC Ur Squamous Epith Cells Urine Bacteria Hyaline Casts Urine Test Salicylates Urine Opiates Screen Ur Buprenorphine Scrn Ur Oxycodone Screen Urine Methadone Screen Urine Fentanyl Screen Acetaminophen Ur Barbiturates Screen Ur Phencyclidine Scrn Ur Amphetamines Screen U Benzodiazepines Scrn Urine Cocaine Screen U Marijuana (THC) Screen Ethyl Alcohol Influenza Type A (PCR) Influenza Type B (PCR) RSV RNA Qual (PCR) SARS-CoV-2 RNA (RT-PCR) 07/06/24 07/06/24 07/06/24 17:08 17:17 18:04 MCV MCH MCHC RDW Plt Count MPV Immature Gran % (Auto) Neut % (Auto) Lymph % (Auto) [place] % (Auto) Eos % (Auto) Baso % (Auto) Lymph # (Auto) [place] # (Auto) Eos # (Auto) Baso # (Auto) Abs Immat Gran (auto) Absolute Neuts (auto) Absolute Nucleated RBC Nucleated RBC % (auto) VBG pH 7.20 L* VBG pCO2 43 VBG pO2 62 VBG HCO3 17 L VBG O2 Saturation 80.0 VBG Base Excess -10.1 Anion Gap Estim Creat Clear Calc Estimated GFR POC Glucose 108 Random Glucose Osmolality 307 H Lactic Acid Lactic Acid F/U @ 2Hr Calcium Magnesium Total Bilirubin AST ALT Alkaline Phosphatase Total Creatine Kinase Troponin I High Sens C-Reactive Protein B-Natriuretic Peptide Total Protein Albumin Lipase Procalcitonin TSH Hold Yellow Top Urine Color Urine Appearance Urine pH Ur Specific [place] Urine Protein Urine Glucose (UA) Urine Ketones Urine Blood Urine Nitrite Ur Leukocyte Esterase Urine RBC Urine WBC Ur Squamous Epith Cells Urine Bacteria Hyaline Casts Urine Test Salicylates < 5.0 L Urine Opiates Screen Ur Buprenorphine Scrn Ur Oxycodone Screen Urine Methadone Screen Urine Fentanyl Screen Acetaminophen 4 Ur Barbiturates Screen Ur Phencyclidine Scrn Ur Amphetamines Screen U Benzodiazepines Scrn Urine Cocaine Screen U Marijuana (THC) Screen Ethyl Alcohol Influenza Type A (PCR) Influenza Type B (PCR) RSV RNA Qual (PCR) SARS-CoV-2 RNA (RT-PCR) 07/06/24 07/06/24 07/06/24 19:02 19:05 19:33 MCV MCH MCHC RDW Plt Count MPV Immature Gran % (Auto) Neut % (Auto) Lymph % (Auto) [place] % (Auto) Eos % (Auto) Baso % (Auto) Lymph # (Auto) [place] # (Auto) Eos # (Auto) Baso # (Auto) Abs Immat Gran (auto) Absolute Neuts (auto) Absolute Nucleated RBC Nucleated RBC % (auto) VBG pH 7.32 VBG pCO2 30 VBG pO2 206 VBG HCO3 16 L VBG O2 Saturation 99.0 VBG Base Excess -8.6 Anion Gap 24 H Estim Creat Clear Calc 43.2 Estimated GFR 41 POC Glucose Random Glucose 116 H Osmolality Lactic Acid Lactic Acid F/U @ 2Hr 1.2 Calcium 8.5 D Magnesium Total Bilirubin AST ALT Alkaline Phosphatase Total Creatine Kinase Troponin I High Sens C-Reactive Protein B-Natriuretic Peptide Total Protein Albumin Lipase Procalcitonin TSH Hold Yellow Top Urine Color Urine Appearance Urine pH Ur Specific [place] Urine Protein Urine Glucose (UA) Urine Ketones Urine Blood Urine Nitrite Ur Leukocyte Esterase Urine RBC Urine WBC Ur Squamous Epith Cells Urine Bacteria Hyaline Casts Urine Test Salicylates Urine Opiates Screen Ur Buprenorphine Scrn Ur Oxycodone Screen Urine Methadone Screen Urine Fentanyl Screen Acetaminophen Ur Barbiturates Screen Ur Phencyclidine Scrn Ur Amphetamines Screen U Benzodiazepines Scrn Urine Cocaine Screen U Marijuana (THC) Screen Ethyl Alcohol Influenza Type A (PCR) Influenza Type B (PCR) RSV RNA Qual (PCR) SARS-CoV-2 RNA (RT-PCR) 07/06/24 07/07/24 07/07/24 22:02 04:01 07:28 MCV 83.8 MCH 26.7 L MCHC 31.8 RDW 14.1 Plt Count 292 MPV 9.4 Immature Gran % (Auto) 0.5 H Neut % (Auto) 81.5 H Lymph % (Auto) 14.4 L [place] % (Auto) 3.5 Eos % (Auto) 0.0 Baso % (Auto) 0.1 Lymph # (Auto) 1.1 L [place] # (Auto) 0.3 Eos # (Auto) 0.0 Baso # (Auto) 0.0 Abs Immat Gran (auto) 0.04 H Absolute Neuts (auto) 6.1 Absolute Nucleated RBC 0.000 Nucleated RBC % (auto) 0.0 VBG pH VBG pCO2 VBG pO2 VBG HCO3 VBG O2 Saturation VBG Base Excess Anion Gap 17 Estim Creat Clear Calc 74.3 Estimated GFR 58 POC Glucose 198 H 211 H Random Glucose 255 H Osmolality Lactic Acid Lactic Acid F/U @ 2Hr Calcium 8.1 L Magnesium 1.8 Total Bilirubin 0.2 AST 50 H ALT 31 Alkaline Phosphatase 131 H Total Creatine Kinase 721 H Troponin I High Sens C-Reactive Protein B-Natriuretic Peptide Total Protein 6.5 Albumin 3.4 L Lipase Procalcitonin TSH Hold Yellow Top Urine Color Urine Appearance Urine pH Ur Specific [place] Urine Protein Urine Glucose (UA) Urine Ketones Urine Blood Urine Nitrite Ur Leukocyte Esterase Urine RBC Urine WBC Ur Squamous Epith Cells Urine Bacteria Hyaline Casts Urine Test Salicylates Urine Opiates Screen Ur Buprenorphine Scrn Ur Oxycodone Screen Urine Methadone Screen Urine Fentanyl Screen Acetaminophen Ur Barbiturates Screen Ur Phencyclidine Scrn Ur Amphetamines Screen U Benzodiazepines Scrn Urine Cocaine Screen U Marijuana (THC) Screen Ethyl Alcohol Influenza Type A (PCR) Influenza Type B (PCR) RSV RNA Qual (PCR) SARS-CoV-2 RNA (RT-PCR) 07/07/24 10:49 MCV MCH MCHC RDW Plt Count MPV Immature Gran % (Auto) Neut % (Auto) Lymph % (Auto) [place] % (Auto) Eos % (Auto) Baso % (Auto) Lymph # (Auto) [place] # (Auto) Eos # (Auto) Baso # (Auto) Abs Immat Gran (auto) Absolute Neuts (auto) Absolute Nucleated RBC Nucleated RBC % (auto) VBG pH VBG pCO2 VBG pO2 VBG HCO3 VBG O2 Saturation VBG Base Excess Anion Gap Estim Creat Clear Calc Estimated GFR POC Glucose 208 H Random Glucose Osmolality Lactic Acid Lactic Acid F/U @ 2Hr Calcium Magnesium Total Bilirubin AST ALT Alkaline Phosphatase Total Creatine Kinase Troponin I High Sens C-Reactive Protein B-Natriuretic Peptide Total Protein Albumin Lipase Procalcitonin TSH Hold Yellow Top Urine Color Urine Appearance Urine pH Ur Specific [place] Urine Protein Urine Glucose (UA) Urine Ketones Urine Blood Urine Nitrite Ur Leukocyte Esterase Urine RBC Urine WBC Ur Squamous Epith Cells Urine Bacteria Hyaline Casts Urine Test Salicylates Urine Opiates Screen Ur Buprenorphine Scrn Ur Oxycodone Screen Urine Methadone Screen Urine Fentanyl Screen Acetaminophen Ur Barbiturates Screen Ur Phencyclidine Scrn Ur Amphetamines Screen U Benzodiazepines Scrn Urine Cocaine Screen U Marijuana (THC) Screen Ethyl Alcohol Influenza Type A (PCR) Influenza Type B (PCR) RSV RNA Qual (PCR) SARS-CoV-2 RNA (RT-PCR) Microbiology Microbiology Results: Microbiology 07/06/24 16:20 Urine Culture - Preliminary Urine Catheterized - Straight Catheter Gram negative jose Assessment and Plan (1) Acute hypotension: Status: Acute (2) Increased anion gap metabolic acidosis: Status: Acute Plan 53 y/o woman admitted with: ? Severe sepsis with Hypotension, tachycardia/tachypnea/LUCIA/acute lactic acidosis likely due to UTI/due to cocaine use/alcohol use disorder/polypharmacy. tachycardia, tachypnea, LUCIA , hypotension and lactic acidosis resolved Continue IV ceftriaxone follow urine and blood cultures. Monitor BP and adjust home medications on multiple sedatives including amitriptyline, clonazepam, Seroquel, oxycodone and gabapentin. Acute Lactic acidosis, likely multifactorial: Hypotension, metformin use, severe sepsis treated with IV fluids lactic acidosis normalized. Acute kidney injury with anion gap metabolic acidosis. LUCIA resolved, gap closed Likely prerenal /hypotension. Acute mild Hyperkalemia, Likely secondary to above. Resolved Back pain, chronic. Acetaminophen and tramadol as needed. Follow as an outpatient with Neurosurgery. Essential hypertension with profound hypotension on admission. Hold Lisinopril follow BP. Hyperlipidemia. Continue statin. Type 2 diabetes mellitus. Lantus and insulin sliding scale, monitor point of care. Intermittent Asthma. Breathing treatment as needed, no acute exacerbation. JACE. Nocturnal CPAP. Morbid Obesity. Recommend low-calorie diet and exercise. Bipolar disorder/anxiety/SI . On Seroquel 200 mg bedtime and 50 mg t.i.d., clonazepam 1 mg t.i.d. prn, amitriptyline 100 mg and prazosin 3 mg by mouth bedtime , patient complaining of thoughts of killing herself therefore will place one-to-one sitter, will place on Seroquel t.i.d. as needed, Klonopin 1 mg t.i.d. as needed, will hold Seroquel 200 mg at bedtime, amitriptyline 100 mg and prazosin 3 mg by mouth at bedtime, due to hypotension and somnolence. Monitor clinical course. History of migraines. Amitriptyline on hold due to recent event with somnolence. Mild rhabdomyolysis likely due to cocaine use, treat with IV fluids follow labs. Cocaine /alcohol use disorder obtain Addiction Team consult, follow CIWA. DVT prophylaxis: Lovenox Code status: Full Patient will need continued inpatient hospitalization for hypotension and possible severe sepsis treatment with IV fluids and empiric IV antibiotic therapy. Quality Stroke Does the patient have a stroke diagnosis?: No VTE Prior VTE?: No VTE Risk Level:: Medical - moderate - high VTE Device Contraindication: Treatment Not Indicated VTE Drug Contraindication: N/A - Med Ordered
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
[2024-07-07] MEDS: Gabapentin 100 MG CAPSULE PO ×2 (13:49→20:22)
[2024-07-07 16:33] LABS: Glucose, Whole Blood 190 mg/dL (60-115)
[2024-07-07] MEDS: cefTRIAXone sodium 1 GM VIAL IVPUSH (16:49)
[2024-07-07] MEDS: Melatonin 3 MG TABLET 6 MG PO (20:22)
[2024-07-07] MEDS: clonazePAM 1 MG TABLET PO (20:22)
[2024-07-07 21:03] LABS: Glucose, Whole Blood 196 mg/dL (60-115)
[2024-07-07] MEDS: Insulin Glargine,Hum.rec.anlog 100 UNIT/ML 10 ML VIAL 35 UNIT SUBCUT (21:34)
[2024-07-07] MEDS: Lactated Ringers 1,000 ML 80 ML IVCONT (21:36)
[2024-07-07] MEDS: Albuterol/Iprat 2.5/0.5MG 3 ML AMPUL.NEB INHALE (23:41)
[2024-07-08] VITALS (9 sets, daily range): BP systolic 131–166; BP diastolic 71–85; PULSE 89–105; RESP 18–24; TEMP 35.9–37.1; O2SAT 95–100
[2024-07-08] MEDS: Acetaminophen 325 MG TABLET 975 MG PO ×2 (00:27→20:48)
[2024-07-08] MEDS: Omeprazole 20 MG CAPSULE.DR PO ×2 (04:27→17:11)
[2024-07-08] MEDS: traMADoL HCL 50 MG TABLET PO ×2 (04:27→16:15)
[2024-07-08] MEDS: clonazePAM 1 MG TABLET PO ×2 (04:29→20:52)
[2024-07-08 07:12] LABS: Glucose, Whole Blood 163 mg/dL (60-115)
[2024-07-08 07:54] LABS: Hematocrit 31.4 % (37.0-47.0); Hemoglobin 9.9 g/dl (12.0-16.0); Mean Corpuscular HGB Conc 31.5 g/dl (31.0-35.0); Mean Corpuscular Hemoglobin 26.5 pg (27.0-33.0); Mean Corpuscular Volume 84.2 fL (80.0-98.0); Mean Platelet Volume 9.5 fL (9.4-12.3); NRBC Pct Auto 0.3 /100WBC (0.0-0.2); Platelet Count 251 X10*3/uL (160-400); Red Blood Count 3.73 X10*6/uL (4.20-5.50); White Blood Count 6.2 X10*3/uL (4.8-10.8)
[2024-07-08 08:33] LABS: Anion Gap 12 (12-20); Blood Urea Nitrogen 24 mg/dL (9-16); Calcium 8.8 mg/dL (8.4-10.2); Carbon Dioxide 27 mmol/L (22-29); Chloride 105 mmol/L (96-108); Creatinine Clr Calc Pharmacy 99.5; Estimated Glomerular Filt Rate > 60; Glucose Random 162 mg/dL (60-115); Potassium 4.2 mmol/L (3.3-5.1); Sodium 140 mmol/L (135-145)
[2024-07-08] MEDS: Enoxaparin Sodium 40 MG/0.4 ML SYRINGE SUBCUT (08:33)
[2024-07-08] MEDS: Cyanocobalamin (Vitamin B-12) 500 MCG TABLET PO (08:33)
[2024-07-08] MEDS: Insulin Lispro 100 UNIT/ML 3 ML VIAL SUBCUT ×4 (08:33→20:49)
[2024-07-08] MEDS: Gabapentin 100 MG CAPSULE PO (08:34)
[2024-07-08] MEDS: Cholecalciferol (Vitamin D3) 25 MCG TABLET 50 MCG PO (08:34)
[2024-07-08] MEDS: Aspirin Enteric Coated 81 MG TABLET.DR PO (08:34)
[2024-07-08] MEDS: Loratadine 10 MG TABLET PO (08:34)
[2024-07-08] MEDS: Atorvastatin Calcium 80 MG TABLET PO (08:34)
[2024-07-08] MEDS: QUEtiapine Fumarate 50 MG TABLET PO (08:37)
[2024-07-08] MEDS: Lactated Ringers 1,000 ML 80 ML IVCONT (08:42)
[2024-07-08] MEDS: Albuterol/Iprat 2.5/0.5MG 3 ML AMPUL.NEB INHALE ×2 (10:49→16:02)
[2024-07-08 11:15] LABS: Glucose, Whole Blood 162 mg/dL (60-115)
--- NOTE | 2024-07-08 13:49 | HO.PM.IMPN ---
Subjective Subjective Date of Service: 07/08/24 Interval History: Complaining of back pain that is chronic and is scheduled for back surgery, complaining of lack of sleep, denies urinary symptoms of urgency, no frequency, no headache, no dizziness, no fevers, no chills, tolerating diet no acute events overnight denies suicidal ideation, no suicidal thoughts, history of suicide attempt 2 years ago. Review of Systems All other system reviewed and are negative Physical Exam Vital Signs: Vital Signs: Last Vital Signs Temp 98.7 F 07/08/24 11:07 Pulse 100 07/08/24 11:07 Resp 18 07/08/24 11:07 BP 135/71 07/08/24 11:07 Pulse Ox 98 07/08/24 11:07 O2 Del Method Room Air 07/08/24 11:07 O2 Flow Rate 2 07/06/24 18:43 BMI result Body Mass Index 54.0 Const: Other: General awake alert x3, in no acute distress. Moist mucous membranes, anicteric sclera Neck no JVD. CVS regular rate rhythm, Respiratory lungs clear to auscultation, no respiratory distress, Gastrointestinal abdomen soft, non tender, bowel sounds audible, no guarding , no rigidity. Neuro non focal Extremities no edema Skin no rash Psych appropriate affect Objective Data Active Medications Acetaminophen (Acetaminophen 325 Mg Tablet) 975 mg PO Q6H PRN PRN Reason: Pain, Mild (Pain Scale 1-3), fever or headache Last Admin: 07/08/24 00:27 Dose: 975 mg Documented By: TJ Albuterol Sulfate (Albuterol Sulfate 90 Mcg 8 Gm Inhaler) 1 puff INHALE Q4H PRN PRN Reason: Shortness Of Breath Or Wheezing Albuterol/Ipratropium (Albuterol/Iprat 2.5/0.5mg 3 Ml Ampul.Neb) 3 ml INHALE Q4H PRN PRN Reason: wheezing Last Admin: 07/08/24 10:49 Dose: 3 ml Documented By: MICHELLE Aspirin (Aspirin Enteric Coated 81 Mg Tablet.) 81 mg PO DAILY [facility] Last Admin: 07/08/24 08:34 Dose: 81 mg Documented By: JACKELIN Atorvastatin Calcium (Atorvastatin Calcium 80 Mg Tablet) 80 mg PO DAILY [facility] Last Admin: 07/08/24 08:34 Dose: 80 mg Documented By: JACKELIN Ceftriaxone Sodium (Ceftriaxone Sodium 1 Gm Vial) 1 gm IVPUSH Q24H [facility] Last Admin: 07/07/24 16:49 Dose: 1 gm Documented By: ANGEL Clonazepam (Clonazepam 1 Mg Tablet) 1 mg PO DAILY PRN PRN Reason: Anxiety Last Admin: 07/07/24 20:22 Dose: 1 mg Documented By: KINGA Clonazepam (Clonazepam 1 Mg Tablet) 1 mg PO TID PRN PRN Reason: anxiety Last Admin: 07/08/24 04:29 Dose: 1 mg Documented By: TJ Cyanocobalamin (Cyanocobalamin (Vitamin B-12) 500 Mcg Tablet) 500 mcg PO DAILY [facility] Last Admin: 07/08/24 08:33 Dose: 500 mcg Documented By: JACKELIN Docusate Sodium (Docusate Sodium 100 Mg Capsule) 100 mg PO DAILY PRN PRN Reason: Constipation Enoxaparin Sodium (Enoxaparin Sodium 40 Mg/0.4 Ml Syringe) 40 mg SUBCUT Q24H [facility] Last Admin: 07/08/24 08:33 Dose: 40 mg Documented By: JACKELIN Gabapentin (Gabapentin 400 Mg Capsule) 400 mg PO TID [facility] Glucose (Glucose Gel 15 Gm Gel..Gram.) 15 gm PO Q15M PRN; Protocol PRN Reason: per Hypoglycemia Standing Ord. Dextrose (D10) 250 mls @ 750 mls/hr IV Q15M PRN; Protocol PRN Reason: per Hypoglycemia Standing Ord. Insulin Glargine (Insulin Glargine,Hum.Rec.Anlog 100 Unit/Ml 10 Ml Vial) 35 unit SUBCUT BEDTIME [facility] Last Admin: 07/07/24 21:34 Dose: 35 unit Documented By: TJ Insulin Human Lispro (Insulin Lispro 100 Unit/Ml 3 Ml Vial) 0 unit SUBCUT QIDACHS [facility]; Protocol Last Admin: 07/08/24 12:03 Dose: 2 unit Documented By: MICHOACANO Loratadine (Loratadine 10 Mg Tablet) 10 mg PO DAILY [facility] Last Admin: 07/08/24 08:34 Dose: 10 mg Documented By: JACKELIN Melatonin (Melatonin 3 Mg Tablet) 6 mg PO BEDTIME PRN PRN Reason: Insomnia Last Admin: 07/07/24 20:22 Dose: 6 mg Documented By: KINGA Omeprazole (Omeprazole 20 Mg Capsule.Dr) 20 mg PO BID@0630,1630 [facility] Last Admin: 07/08/24 04:27 Dose: 20 mg Documented By: TJ Quetiapine Fumarate (Quetiapine Fumarate 50 Mg Tablet) 50 mg PO TID PRN PRN Reason: Anxiety Last Admin: 07/08/24 08:37 Dose: 50 mg Documented By: JACKELIN Sodium Chloride (0.9 % Sodium Chloride Flush 3 Ml Syringe) 3 ml IVFLUSH QSHIFT [facility] Last Admin: 07/08/24 08:34 Dose: Not Given Documented By: JACKELIN Non-Admin Reason: IV Running Tramadol HCl (Tramadol Hcl 50 Mg Tablet) 50 mg PO Q8H PRN PRN Reason: back pain Last Admin: 07/08/24 04:27 Dose: 50 mg Documented By: TJ Vitamin D (Cholecalciferol (Vitamin D3) 25 Mcg Tablet) 50 mcg PO DAILY [facility] Last Admin: 07/08/24 08:34 Dose: 50 mcg Documented By: JACKELIN Labs 07/08/24 07:04 07/08/24 07:03 Labs: Laboratory Results - last 24 hr 07/07/24 07/07/24 07/08/24 16:25 20:57 07:03 MCV MCH MCHC RDW Plt Count MPV Absolute Nucleated RBC Nucleated RBC % (auto) Anion Gap 12 Estim Creat Clear Calc 99.5 Estimated GFR > 60 POC Glucose 190 H 196 H Random Glucose 162 H Calcium 8.8 D Total Creatine Kinase 505 H 07/08/24 07/08/24 07:04 11:06 MCV 84.2 MCH 26.5 L MCHC 31.5 RDW 14.0 Plt Count 251 MPV 9.5 Absolute Nucleated RBC 0.020 H Nucleated RBC % (auto) 0.3 H Anion Gap Estim Creat Clear Calc Estimated GFR POC Glucose 163 H 162 H Random Glucose Calcium Total Creatine Kinase Microbiology Microbiology Results: Microbiology 07/06/24 16:20 Urine Culture - Final Urine Catheterized - Straight Catheter Escherichia coli 07/06/24 17:08 Blood Culture - Preliminary Blood - Venous No growth after 24 hours. 07/06/24 17:02 Blood Culture - Preliminary Blood - Venous No growth after 24 hours. Assessment and Plan (1) Acute hypotension: Status: Acute (2) Acute kidney injury: Status: Acute (3) Morbid obesity: Status: Acute (4) HTN (hypertension): Status: Acute (5) DM2 (diabetes mellitus, type 2): Status: Acute Plan 53 y/o woman admitted with: ? Severe sepsis with Hypotension, tachycardia/tachypnea/LUCIA/acute lactic acidosis likely due to UTI/due to cocaine use/alcohol use disorder/polypharmacy. tachycardia, tachypnea, LUCIA , hypotension and lactic acidosis resolved Continue IV ceftriaxone , urine culture grew E coli sensitive to ceftriaxone, blood cultures x2 negative times 24 hours Resume home medications clonazepam, Seroquel, oxycodone and gabapentin. DC amitriptyline Acute Lactic acidosis, likely multifactorial: Hypotension, metformin use, severe sepsis treated with IV fluids lactic acidosis resolved. Acute kidney injury with anion gap metabolic acidosis. LUCIA resolved, gap closed Likely prerenal /hypotension. Acute mild Hyperkalemia, Likely secondary to above. Resolved Back pain, chronic. Acetaminophen and tramadol as needed. Follow as an outpatient with Neurosurgery. Essential hypertension with profound hypotension on admission. Blood pressure improved and within normal range, continued to Hold Lisinopril Hyperlipidemia. Continue statin. Type 2 diabetes mellitus. stable bs cont.Lantus and insulin sliding scale, monitor point of care. Intermittent Asthma. Breathing treatment as needed, no acute exacerbation. JACE. Nocturnal CPAP. Morbid Obesity. Recommend low-calorie diet and exercise. Bipolar disorder/anxiety . On Seroquel 200 mg bedtime and 50 mg t.i.d prn., clonazepam 1 mg t.i.d. prn, amitriptyline 100 mg and prazosin 3 mg by mouth bedtime , Will resume Seroquel 200 mg at bedtime and prazosin 1 mg at bedtime and continue on Seroquel t.i.d. as needed, Klonopin 1 mg t.i.d. as needed, Will hold amitriptyline 100 mg due to somnolence. DC sitter patient denies suicidal ideation or thoughts Monitor clinical course. History of migraines. Amitriptyline on hold due to recent event with somnolence. Mild rhabdomyolysis likely due to cocaine use, CK improved to 505 will DC IV fluids, creatinine normalized. Cocaine /alcohol use disorder obtain Addiction Team consult, follow [facility]. DVT prophylaxis: Lovenox Code status: Full Patient will need continued inpatient hospitalization for hypotension and possible severe sepsis treatment with IV antibiotic therapy. Quality Stroke Does the patient have a stroke diagnosis?: No VTE Prior VTE?: No VTE Risk Level:: Medical - moderate - high VTE Device Contraindication: Treatment Not Indicated VTE Drug Contraindication: N/A - Med Ordered
[2024-07-08] MEDS: Gabapentin 400 MG CAPSULE PO ×2 (14:03→20:48)
[2024-07-08] MEDS: 0.9 % Sodium Chloride Flush 3 ML SYRINGE IVFLUSH ×2 (16:15→20:49)
[2024-07-08 16:36] LABS: Glucose, Whole Blood 157 mg/dL (60-115)
[2024-07-08] MEDS: cefTRIAXone sodium 1 GM VIAL IVPUSH (17:11)
[2024-07-08 20:47] LABS: Glucose, Whole Blood 167 mg/dL (60-115)
[2024-07-08] MEDS: Melatonin 3 MG TABLET 6 MG PO (20:48)
[2024-07-08] MEDS: QUEtiapine Fumarate 200 MG TABLET PO (20:48)
[2024-07-08] MEDS: Insulin Glargine,Hum.rec.anlog 100 UNIT/ML 10 ML VIAL 35 UNIT SUBCUT (20:49)
[2024-07-09] MEDS: Albuterol/Iprat 2.5/0.5MG 3 ML AMPUL.NEB INHALE (00:45)
[2024-07-09 00:48] VITALS: PULSE 97; RESP 16; O2SAT 96
[2024-07-09 01:01] VITALS: PULSE 85; RESP 19; O2SAT 97
[2024-07-09 03:38] VITALS: BP 104/57; PULSE 81; RESP 18; TEMP 36.2; O2SAT 95
[2024-07-09] MEDS: Omeprazole 20 MG CAPSULE.DR PO (05:54)
[2024-07-09] MEDS: traMADoL HCL 50 MG TABLET PO (05:56)
[2024-07-09 07:50] LABS: Glucose, Whole Blood 103 mg/dL (60-115)
[2024-07-09 07:56] VITALS: BP 138/72; PULSE 85; RESP 16; TEMP 36.1; O2SAT 100
[2024-07-09] MEDS: Atorvastatin Calcium 80 MG TABLET PO (09:48)
[2024-07-09] MEDS: Enoxaparin Sodium 40 MG/0.4 ML SYRINGE SUBCUT (09:48)
[2024-07-09] MEDS: Loratadine 10 MG TABLET PO (09:48)
[2024-07-09] MEDS: Cyanocobalamin (Vitamin B-12) 500 MCG TABLET PO (09:48)
[2024-07-09] MEDS: Aspirin Enteric Coated 81 MG TABLET.DR PO (09:48)
[2024-07-09] MEDS: Gabapentin 400 MG CAPSULE PO (09:48)
[2024-07-09] MEDS: Cholecalciferol (Vitamin D3) 25 MCG TABLET 50 MCG PO (09:48)
[2024-07-09] MEDS: 0.9 % Sodium Chloride Flush 3 ML SYRINGE IVFLUSH (09:49)
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
[2024-07-09 11:26] LABS: Glucose, Whole Blood 124 mg/dL (60-115)
--- NOTE | 2024-07-09 11:32 | P.DS_ITS ---
DS: Providers Provider Date of Service: 07/09/24 Date of admission: 07/06/24 21:32 Primary care physician: Aleisha Morillo MD Consults: 07/08/24 14:28 Addiction Medicine Routine Consulting Provider: Addiction Covering Reason for consultation: cocaine use/etoh use disorder Has provider been notified: No DS: Diagnosis Discharge Diagnosis (1) Acute hypotension: Status: Acute (2) Acute kidney injury: Status: Acute (3) Morbid obesity: Status: Acute (4) HTN (hypertension): Status: Acute (5) DM2 (diabetes mellitus, type 2): Status: Acute DS: Summary Hospital Course Hospital Course: History of presenting illness: Date of Service: 07/06/24 Attending physician on admission: Alexander Velásquez Chief Complaint: Back pain Becky Springer is a 53 years old woman with past medical history significant for JACE on CPAP, hyperlipidemia, type 2 diabetes mellitus on insulin, essential hypertension and asthma presents to the emergency department complaining of lower back pain radiating to the pelvic area that has been getting worse over the last few hours. She stated that she had fibromyalgia and chronic back pain that requires surgery. She stated that today she was drinking beers with a friend. Upon questioning about use of illicit drugs such as cocaine she denied it. She said that her friend gave her a PO for migraine enteritis why she is seeing H remains positive for cocaine. She denied any headache, dizziness, chest pain, shortness of breath, nausea, vomiting or diarrhea. She does have chronic pitting edema to the lower extremities. She denies tobacco smoking. Upon arrival to the emergency department she was found to be very somnolent and hypotensive, 60/42. Her oxygen saturation has remained normal and she is slightly tachycardic. Treated with Narcan without response. Blood workup showed no leukocytosis. Hemoglobin is 11.7 and platelets are normal. Initial venous pH is 7.20, most recently 7.32, with normal pCO2. Also her creatinine was found to be 2.05 times trending down, 1.35. Bicarb is 15, anion gap 29 and BUN 34. Serum osmolality is 307 and lactic acidosis of 4.2, which normalized after IV fluids. TSH and procalcitonin are normal. LFTs are remarkable for slight elevation of AST, lipase and alk-phos. Bilirubin and ALT are normal. Urinalysis consistent with urinary tract infection. Head CT scan showed no acute intracranial abnormalities. Abdominal pelvis CT scan showed no acute findings. It showed hepatosplenomegaly with fatty infiltration and distended gallbladder. She has a recent hospitalization at [facility] with orthostatic hypotension. A stimulation test was performed with good response. There was a concern that probably the amitriptyline was causing this. ED tx: NS 4 L bolus, ceftriaxone 1 g IV Solu-Medrol 125 mg IV, Narcan 2 mg IV. Hospital course: 53 y/o woman admitted with Severe sepsis with Hypotension, tachycardia/tachypnea/LUCIA/acute lactic acidosis likely due to UTI/with a backdrop of cocaine and alcohol use disorder and polypharmacy, patient admitted to telemetry unit treated with IV fluids, IV antibiotics, all symptoms of sepsis resolved, urine culture grew E coli sensitive to ceftriaxone blood culture showed no growth patient psychiatric medications were adjusted, Since patient is asymptomatic at present with no urinary symptoms, no headache or lightheadedness she is being discharged home on by mouth Ceftin for 5 more days to finish a 7 day course of antibiotic her dose of amitriptyline has been reduced to 25 mg and dose of prazosin reduced to 2mg and lisinopril has been discontinued. Acute kidney injury with anion gap metabolic acidosis resolved with IV fluids was likely due to hypotension with polypharmacy Mood disorder continue Seroquel 200 mg at bedtime and prazosin 2 mg at bedtime a nd continue Seroquel t.i.d. as needed, Klonopin 1 mg t.i.d. as needed, Will dc amitriptyline 100 mg due to somnolence. History of migraines. Will reduce dose of prophylactic amitriptyline to 25 mg due to daytime somnolence Mild rhabdomyolysis likely due to cocaine use, treated with IV fluids, and renal function normalized, CK improved to 505. Cocaine /alcohol use disorder seen by Addiction Team outpatient referrals given no acute alcohol withdrawal symptoms noted. Time Attestation Discharge Coordination Time (in mins): 38 Quality: Safe Use of Opioids Does Pt have an Active Cancer Diagnosis on the Problem List?: No Quality: Stroke Does the patient have a stroke diagnosis?: No Physical Exam Vital Signs: Vital Signs: Last Vital Signs Temp 97 F 07/09/24 07:56 Pulse 85 07/09/24 07:56 Resp 16 07/09/24 07:56 BP 138/72 12/11/24 07:56 Pulse Ox 100 07/09/24 07:56 O2 Del Method Room Air 07/09/24 07:56 O2 Flow Rate 2 07/06/24 18:43 BMI result Body Mass Index 54.0 Const: Other: General awake alert x3, in no acute distress. Moist mucous membranes, anicteric sclera Neck no JVD. CVS regular rate rhythm, Respiratory lungs clear to auscultation, no respiratory distress, Gastrointestinal abdomen soft, non tender, bowel sounds audible, no guarding , no rigidity. Neuro non focal Extremities no edema Skin no rash Psych appropriate affect DS: Data Data Completed and Pending Labs on day of discharge: Laboratory Results - last 24 hr 07/08/24 07/08/24 07/09/24 16:30 20:37 07:44 POC Glucose 157 H 167 H 103 07/09/24 11:22 POC Glucose 124 H Preliminary micro results at discharge 07/06/24 17:08 Blood Culture - Preliminary Blood - Venous No growth after 48 hours. 07/06/24 17:02 Blood Culture - Preliminary Blood - Venous No growth after 48 hours. Discharge Plan Discharge Anticipated Discharge Date/Time: 07/09/24 11:29 Patient Disposition: Home, Self-Care Discharge Diagnosis: Severe sepsis due to UTI Acute kidney injury with anion gap metabolic acidosis Referrals: Aleisha Morillo MD [Primary Care Provider] - 1 Week Discharge Medications: New cefuroxime axetil 250 mg tablet 250 mg PO BID Qty: 10 0RF amitriptyline 25 mg tablet 25 mg PO BEDTIME Qty: 30 0RF Continued cholecalciferol (vitamin D3) 50 mcg (2,000 unit) capsule 50 mcg PO DAILY Qty: 30 6RF cyanocobalamin (vitamin B-12) 500 mcg tablet 500 mcg PO DAILY Qty: 30 6RF Lantus Solostar U-100 Insulin 100 unit/mL (3 mL) insulin pen 35 unit subcut QPM 30 Days Qty: 10.5 6RF (DME) FreeStyle Lite Strips Strip See Rx Instructions .Route Qty: 150 0RF Rx Instructions: 4 times a day Trulicity 3 mg/0.5 mL pen injector 3 mg subcut WE quetiapine 200 mg tablet 200 mg PO BEDTIME quetiapine 50 mg tablet 50 mg PO TID PRN (Reason: Anxiety) atorvastatin 80 mg tablet 80 mg PO DAILY clonazepam 1 mg tablet 1 mg PO TID PRN (Reason: anxiety) omeprazole 20 mg capsule,delayed release(DR/EC) 20 mg PO BID insulin lispro 100 unit/mL insulin pen 2 - 12 unit subcut TID multivitamin Tablet 1 tab PO DAILY albuterol sulfate [Ventolin HFA] 90 mcg/actuation HFA aerosol inhaler 1 puff inhalation Q4-6H PRN (Reason: Shortness Of Breath Or Wheezing) acetaminophen 500 mg tablet 1,000 mg PO Q8H PRN (Reason: pain) gabapentin 400 mg capsule 400 mg PO TID metformin 1,000 mg tablet extended release 24hr 1,000 mg PO BID (DME) blood-glucose meter [FreeStyle Lite Meter] Kit See Rx Instructions .Route Rx Instructions: As directed aspirin [Adult Low Dose Aspirin] 81 mg tablet,delayed release (DR/EC) 81 mg PO DAILY loratadine [Allergy Relief (loratadine)] 10 mg tablet 10 mg PO DAILY docusate sodium 100 mg capsule 100 mg PO DAILY PRN (Reason: Constipation) Changed prazosin 1 mg capsule 2 mg PO BEDTIME Qty: 30 0RF Discontinued amitriptyline 100 mg tablet 100 mg PO DAILY gabapentin 100 mg capsule 100 mg PO TID lisinopril 40 mg tablet 40 mg PO DAILY Discharge Orders: Discharge Order (Routine); Ordered 07/09/24 Ordered By: Dwayne Grimm Diet: Diabetic diet Activity on Discharge: As tolerated Stand Alone Forms: Patient Portal Discharge page Print Language: Wolof Care Plan Goals: Hypotension resolved hold lisinopril follow BP closely with primary care physician Urinary tract infection take Ceftin 1 tablet twice daily for 5 more days Decrease dose of prazosin to 2 mg at bedtime Decrease dose of amitriptyline to 25 mg at bedtime Follow-up with primary care physician to check lipid profile since on high-dose Lipitor 80 mg Recommend to abstain from alcohol and illicit drug use. Health Concerns: Follow-up with psychiatry as needed Plan of Treatment: Outpatient follow-up with primary care physician call for appointment Assessment: As above Discharge Date/Time: 07/09/24 12:51
[2024-07-09 11:47] VITALS: BP 140/78; PULSE 90; RESP 18; TEMP 36.3; O2SAT 98
--- NOTE | 2024-07-09 11:51 | P.CDIM_ITS ---
PROVIDER RESPONSE TEXT: To clarify, the appropriate diagnosis supported by the clinical indicators: Mild intermittent QUERY TEXT: PHYSICIAN'S DOCUMENTATION REQUEST Date of Query: 07/09/2024 11:42 AM EST Patient Name: Becky Springer Admit Date: 07/07/2024 Dear Dwayne Grimm MD, A review of the medical record indicates additional documentation may be needed. Please review below and update the documentation accordingly. The diagnosis of asthma was documented in the record on 07/08/24. Additional clinical indicators from the record include: Intermittent Asthma. Breathing treatment as needed, no acute exacerbation. Based on the above, please clarify in the Progress Notes further specificity regarding the type of th e asthma: Mild intermittent Mild persistent Moderate persistent Severe persistent Exercise induced Other (explain) Clinically unable to determine (explain) Thank you, Eryn Milton RN Use of terms such as suspected, likely, concern for, or probable (associated with a specific diagnosi s that is being evaluated, monitored, or treated as if it exists) are acceptable and can be coded in the inpatient se tting, when documented at the time of discharge. Please use your independent medical judgment in providing your response. THIS QUERY IS PART OF THE PERMANENT MEDICAL RECORD
--- NOTE | 2024-07-09 12:02 | MHC.CM.PN ---
PT MEDICALLY CLEARED FOR DC BACK TO [employer] [facility], PT WILL ARRANGE FOR RETIREMENT TRANSPORT.
== END 2024-07-09 12:51 | disposition home or self-care (01) | DRG 816 ==
LOC: HO.ED 21:45 → HO.EDOVER 22:30 → HO.IMC 07-07 07:45
PROVIDERS: Physician Assistant Medical; Admitting Provider Internal Medicine; Emergency Provider Emergency Medicine; PCP Family Medicine; Visit Provider Hospitalist
DX: T40.5X1A Poisoning by cocaine, accidental (unintentional), initial encounter (principal); R65.20 Severe sepsis without septic shock; N17.9 Acute kidney failure, unspecified; E87.21 Acute metabolic acidosis; M62.82 Rhabdomyolysis; Z68.43 Body mass index [BMI] 50.0-59.9, adult; I95.9 Hypotension, unspecified; G47.33 Obstructive sleep apnea (adult) (pediatric); E86.0 Dehydration; I10 Essential (primary) hypertension; F31.9 Bipolar disorder, unspecified; F41.9 Anxiety disorder, unspecified; G43.909 Migraine, unspecified, not intractable, without status migrainosus; N39.0 Urinary tract infection, site not specified; E87.5 Hyperkalemia; E66.01 Morbid (severe) obesity due to excess calories; M54.9 Dorsalgia, unspecified; J45.20 Mild intermittent asthma, uncomplicated; F14.90 Cocaine use, unspecified, uncomplicated; F19.90 Other psychoactive substance use, unspecified, uncomplicated; F10.90 Alcohol use, unspecified, uncomplicated; E78.5 Hyperlipidemia, unspecified; G89.29 Other chronic pain; Z20.822 Contact with and (suspected) exposure to COVID-19; Z59.01 Sheltered homelessness; Z79.4 Long term (current) use of insulin; Z79.85 Long-term (current) use of injectable non-insulin antidiabetic drugs; Z79.899 Other long term (current) drug therapy
CPT/HCPCS: 0241U; 36415; 70450; 71045; 74176; 80048; 80053; 80143; 80179; 80307; 81001; 81025; 82550; 82803; 82947; 83605; 83690; 83735; 83880; 83930; 84145; 84443; 84484; 85025; 85027; 86140; 87040; 87086; 87088; 87186; 93005; 94640; 94660; 99285; J0696; J1650; J2310; J2919; J3411; J7120

== ENCOUNTER → 2024-07-06 15:37 | Outpatient (BNV) | payer MEDICAID, SELFPAY | PROVIDERS: Emergency Provider Emergency Medicine; PCP Family Medicine; Visit Provider Internal Medicine | DX: I95.9 Hypotension, unspecified (principal); N17.9 Acute kidney failure, unspecified | CPT/HCPCS: 99223 ==

== ENCOUNTER → 2024-07-06 16:25 | Outpatient (BNV) | payer MEDICAID, SELFPAY | PROVIDERS: Admitting Provider Internal Medicine; Emergency Provider Emergency Medicine; PCP Family Medicine; Visit Provider Internal Medicine Cardiovascular Disease | DX: R00.0 Tachycardia, unspecified (principal) | CPT/HCPCS: 93010 ==

== ENCOUNTER 2024-08-09 20:40 | Emergency (ER) | payer MEDICAID, SELFPAY ==
--- NOTE | ~2024-08-09 | US_ITS ---
CLINICAL HISTORY: leg pain and swelling Venous duplex ultrasound right lower extremity Comparison: None Findings: The visualized deep veins are fully compressible with normal Doppler color flow and spectral tracings. No popliteal cyst. IMPRESSION: 1. Negative for right lower extremity deep vein thrombosis. This document has been electronically signed by: Ramon Casas MD, PHD on 08/10/2024 04:05:33
--- NOTE | ~2024-08-09 | XR_ITS ---
CLINICAL HISTORY: pain and swelling 2 view right knee Comparison: None Findings: Bones intact. No dislocations. Three compartment osteophyte formation without joint space loss or erosions. No significant subchondral sclerosis. No joint effusion. No radiopaque foreign body. IMPRESSION: Mild tricompartment osteoarthropathy. No acute findings. This document has been electronically signed by: Radhika Schmitt MD on 08/10/2024 06:23:01
[2024-08-09 20:50] VITALS: BP 120/68; PULSE 98; O2SAT 99
[2024-08-09 21:06] VITALS: BP 142/81; PULSE 96; RESP 18; TEMP 37.1; O2SAT 97; BMI 48.0
--- NOTE | 2024-08-10 01:54 | ED.EXTPRO ---
HPI - Extremity Problem General Chief complaint: Extremity Problem Stated complaint: leg pain Time Seen by Provider: 08/10/24 01:07 Source: patient Mode of arrival: ambulatory Limitations: no limitations History of Present Illness ED Provider: Dr. Huong Lawson HPI Narrative: Patient comes to the emergency room complaining of right leg pain. Patient states it starts in the foot, ankle and up the leg. Patient states that sometimes she feels pain radiating towards her back. However, patient states that the worse pain is in the calf on the right side. Patient denies any recent injuries. Denies chest pain or shortness of breath. Related Data Home Medications ?Medication ?Instructions ?Recorded ?Confirmed aspirin 81 mg tablet,delayed 81 mg PO DAILY 05/05/21 07/07/24 release (Adult Low Dose Aspirin) blood-glucose meter (FreeStyle 05/05/21 05/05/21 Lite Meter kit) docusate sodium 100 mg capsule 100 mg PO DAILY PRN Constipation 05/05/21 07/07/24 loratadine 10 mg tablet (Allergy 10 mg PO DAILY 05/05/21 07/07/24 Relief (loratadine)) metformin 1,000 mg tablet,extended 1,000 mg PO BID 05/05/21 07/07/24 release 24hr (osmotic) acetaminophen 500 mg tablet 1,000 mg PO Q8H PRN pain 07/07/24 07/07/24 albuterol sulfate 90 mcg/actuation 1 puff inhalation Q4-6H PRN 07/07/24 07/07/24 aerosol inhaler (Ventolin HFA) Shortness Of Breath Or Wheezing atorvastatin 80 mg tablet 80 mg PO DAILY 07/07/24 07/07/24 clonazepam 1 mg tablet 1 mg PO TID PRN anxiety 07/07/24 07/07/24 dulaglutide 3 mg/0.5 mL 3 mg subcut WE 07/07/24 07/07/24 subcutaneous pen injector (Trulicity) gabapentin 400 mg capsule 400 mg PO TID 07/07/24 07/07/24 insulin lispro 100 unit/mL 2 - 12 unit subcut TID 07/07/24 07/07/24 subcutaneous pen multivitamin 1 tab PO DAILY 07/07/24 07/07/24 omeprazole 20 mg capsule,delayed 20 mg PO BID 12/09/24 12/09/24 release quetiapine 200 mg tablet 200 mg PO BEDTIME 07/07/24 07/07/24 quetiapine 50 mg tablet 50 mg PO TID PRN Anxiety 07/07/24 07/07/24 Previous Rx's ?Medication ?Instructions ?Recorded cholecalciferol (vitamin D3) 50 50 mcg PO DAILY #30 caps 05/10/21 mcg (2,000 unit) capsule cyanocobalamin (vitamin B-12) 500 500 mcg PO DAILY #30 tabs 05/10/21 mcg tablet insulin glargine 100 unit/mL (3 35 unit (0.35 mL) subcut QPM 30 05/13/21 mL) subcutaneous pen (Lantus days #10.5 mL Solostar U-100 Insulin) blood sugar diagnostic (FreeStyle #150 ea 06/26/22 Lite Strips) amitriptyline 25 mg tablet 25 mg PO BEDTIME #30 tabs 07/09/24 cefuroxime axetil 250 mg tablet 250 mg PO BID #10 tabs 07/09/24 prazosin 1 mg capsule 2 mg (2 x 1 mg) PO BEDTIME #30 caps 07/09/24 tramadol 50 mg tablet 50 mg PO BID PRN pain #7 tabs 08/10/24 Allergies Allergy/AdvReac Type Severity Reaction Status Date / Time No Known Allergies Allergy Verified 08/09/24 21:07 Review of Systems Review of Systems: Constitutional : No Weight loss, No Fever, No Chills, No Night Sweats, No Fatigue, No Malaise ENT/Mouth : No Hearing loss, No Ear Pain, No Nasal Congestion, No Sinus Pain, No Hoarseness, No sore throat, No Rhinorrhea, No Swallowing Difficulty Eyes: No Eye Pain, No Swelling, No Redness, No Foreign Body, No Discharge, No Vision Changes Cardiovascular : No Chest Pain, No SOB, No Dyspnea on Exertion, No Orthopnea, No Edema, No Palpitations Respiratory : No Cough, No Sputum, No Wheezing, No Smoke Exposure, No Dyspnea Gastrointestinal : No Nausea, No Vomiting, No Diarrhea, No Constipation, No abdominal Pain, No Hematochezia, No Melena Genitourinary : no irregular bleeding, No Dysuria, No Urinary Frequency, No Hematuria, No Urinary Incontinence, No Urgency, No Flank Pain, No Urinary Flow Changes, No Hesitancy Musculoskeletal : c/o R LE pain and swelling, No joint pain, No Myalgias, No Joint Swelling Skin : No Skin Lesions, No rash Neuro : No Weakness, No Numbness, No Paresthesias, No Loss of Consciousness, No Dizziness, No Headache Psych : No Anxiety/Panic, No Depression, No SI/HI/AH/VH, No Social Issues, Heme/Lymph: No Bruising, No Bleeding,No Lymphadenopathy Endocrine : No Polyuria, No Polydipsia, No Temperature Intolerance [facility] Past Medical History Medical History Acute kidney injury Obesity due to excess calories HLD (hyperlipidemia) DM2 (diabetes mellitus, type 2) Sleep apnea Carpal tunnel syndrome on both sides Gastritis GERD (gastroesophageal reflux disease) Fibromyalgia Migraine Asthma Urinary incontinence Herniated disc Arthritis associated with diabetes Anxiety Depression HTN (hypertension) Surgical History History of carpal tunnel release History of tubal ligation Family History Family History Father Rheumatoid arthritis Mother No problems noted. Social History Social History Household Members: Family Housing: Apartment Do you presently have visiting nurse or other home services: No Unable to assess alcohol history related to: Unable to respond Alcohol intake: never Comment: 1:1 sitter Patient Tobacco Use Status: Former Tobacco user Advance Directives: No Advance Directives Information Provided: Yes Do you have a plan to hurt others: No Plan service: No Physical Exam Vital Signs: Vital Signs: Last Vital Signs Temp 98.0 F 08/10/24 05:26 Pulse 82 08/10/24 05:26 Resp 18 08/10/24 05:26 BP 146/83 H 08/10/24 05:26 Pulse Ox 98 08/10/24 05:26 O2 Del Method Room Air 08/10/24 05:26 BMI result Body Mass Index 48.0 Const: Other: Appearance: Alert. Oriented X3. No acute distress. Eyes: Pupils equal, round and reactive to light. ENT: Pharynx normal. Neck: Normal inspection. Neck supple. No lymph nodes noted. No crepitus CVS: Normal heart rate and rhythm. Pulses normal. Normal S1 and S2 Respiratory: No respiratory distress. Breath sounds normal. No Wheezing. No rales Abdomen: Soft and nontender. No rigidity. No distention. Skin: Skin warm and dry. Normal skin color. Normal skin turgor. Extremities: Right LE minimally swollen compared to L leg, pain to palpation in R foot and R calf, pain to palpation up to thight. No Lacerations. No Rash Neuro: Oriented X 3. No motor deficit. No sensory deficit. Moving all extremities. No slurred speech. CN 2 through 12 grossly intact Psych: calm, cooperative, normal affect Course Course Course Narrative: Ultrasound of right lower extremity pending Patient given p.o. tramadol for symptomatic relief. Medications Administered Discontinued Medications Generic Name Dose Route Start Last Admin Trade Name Freq PRN Reason Stop Dose Admin Acetaminophen 650 mg 08/10/24 06:04 08/10/24 06:09 Acetaminophen 325 Mg Tablet PO 08/10/24 06:05 650 mg ONCE ONE Administration Tramadol HCl 50 mg 08/10/24 02:01 08/10/24 02:23 Tramadol Hcl 50 Mg Tablet PO 08/10/24 02:02 50 mg ONCE ONE Administration Medical Decision Making Medical Decision Making [facility] Narrative: No significant abnormality in patient's labs. Ultrasound of the lower extremity negative for DVT. Patient was given p.o. tramadol for symptomatic relief. X-rays are negative Patient instructed to follow-up with her primary care physician, patient has been symptomatic for 1 month Differential Diagnosis Differential Diagnoses: The differential diagnosis associated with the presentation includes (Chronic lower extremity pain, DVT) Admission/Observation Consideration of admission/observation: Escalation of care including admission/observation considered (Given patient's symptoms, observation was considered) Independent Interpretation I performed an independent interpretation of an: Plain X-Ray and Ultrasound Radiology Impression Discussion of test interpretation with radiology: I have reviewed the radiologist's reading. Radiologist Impression: Findings: Bones intact. No dislocations. Three compartment osteophyte formation without joint space loss or erosions. No significant subchondral sclerosis. No joint effusion. No radiopaque foreign body. IMPRESSION: Mild tricompartment osteoarthropathy. No acute findings. The visualized deep veins are fully compressible with normal Doppler color flow and spectral tracings. No popliteal cyst. IMPRESSION: 1. Negative for right lower extremity deep vein thrombosis. Critical Care Time Critical Care Time Critical Care Time: Yes Total Critical Care Time: 35 Attestation: I have personally provided critical care time. Time includes review of lab data, radiology results, discussion with consultants, and monitoring for potential decompensation. Intervention performed as documented. Discharge Plan Discharge Clinical Impression: Chronic leg pain Patient Disposition: Home, Self-Care Instructions: Chronic Pain (ED) Additional Instructions: Please follow-up with your primary care physician tomorrow. If you have any worsening or new symptoms, please return to the emergency room or call 911 Prescriptions: New tramadol 50 mg tablet 50 mg PO BID PRN (Reason: pain) Qty: 7 0RF No Action cholecalciferol (vitamin D3) 50 mcg (2,000 unit) capsule 50 mcg PO DAILY Qty: 30 6RF cyanocobalamin (vitamin B-12) 500 mcg tablet 500 mcg PO DAILY Qty: 30 6RF Lantus Solostar U-100 Insulin 100 unit/mL (3 mL) insulin pen 35 unit subcut QPM 30 Days Qty: 10.5 6RF (DME) FreeStyle Lite Strips Strip See Rx Instructions .Route Qty: 150 0RF Rx Instructions: 4 times a day Trulicity 3 mg/0.5 mL pen injector 3 mg subcut WE quetiapine 200 mg tablet 200 mg PO BEDTIME quetiapine 50 mg tablet 50 mg PO TID PRN (Reason: Anxiety) atorvastatin 80 mg tablet 80 mg PO DAILY clonazepam 1 mg tablet 1 mg PO TID PRN (Reason: anxiety) omeprazole 20 mg capsule,delayed release(DR/EC) 20 mg PO BID insulin lispro 100 unit/mL insulin pen 2 - 12 unit subcut TID multivitamin Tablet 1 tab PO DAILY albuterol sulfate [Ventolin HFA] 90 mcg/actuation HFA aerosol inhaler 1 puff inhalation Q4-6H PRN (Reason: Shortness Of Breath Or Wheezing) acetaminophen 500 mg tablet 1,000 mg PO Q8H PRN (Reason: pain) gabapentin 400 mg capsule 400 mg PO TID cefuroxime axetil 250 mg tablet 250 mg PO BID Qty: 10 0RF prazosin 1 mg capsule 2 mg PO BEDTIME Qty: 30 0RF amitriptyline 25 mg tablet 25 mg PO BEDTIME Qty: 30 0RF metformin 1,000 mg tablet extended release 24hr 1,000 mg PO BID (DME) blood-glucose meter [FreeStyle Lite Meter] Kit See Rx Instructions .Route Rx Instructions: As directed aspirin [Adult Low Dose Aspirin] 81 mg tablet,delayed release (DR/EC) 81 mg PO DAILY loratadine [Allergy Relief (loratadine)] 10 mg tablet 10 mg PO DAILY docusate sodium 100 mg capsule 100 mg PO DAILY PRN (Reason: Constipation) Print Language: Greenlandic
[2024-08-10] MEDS: traMADoL HCL 50 MG TABLET PO (02:23)
[2024-08-10 05:26] VITALS: BP 146/83; PULSE 82; RESP 18; TEMP 36.7; O2SAT 98
--- NOTE | 2024-08-10 05:27 | PC.NURSE ---
Patient awake and alert. skin pwd, resp even and non labored, speaking in full, clear sentences. patient aware of plan of care for d/c but reports increased right leg pain and is requesting an x ray.
[2024-08-10] MEDS: Acetaminophen 325 MG TABLET 650 MG PO (06:09)
[2024-08-10 07:16] VITALS: BP 146/83; PULSE 82; RESP 18; TEMP 36.7; O2SAT 98
== END 2024-08-10 07:12 | disposition home or self-care (01) ==
PROVIDERS: Emergency Provider Emergency Medicine; PCP Family Medicine
DX: M79.604 Pain in right leg (principal); Z87.891 Personal history of nicotine dependence; R60.0 Localized edema; Z79.899 Other long term (current) drug therapy
CPT/HCPCS: 73560; 93971; 99284

== ENCOUNTER → 2024-08-10 01:52 | Outpatient (BNV) | payer MEDICAID, SELFPAY | PROVIDERS: Emergency Provider Emergency Medicine; PCP Family Medicine; Visit Provider General Practice | DX: R22.41 Localized swelling, mass and lump, right lower limb (principal); M79.604 Pain in right leg; M17.11 Unilateral primary osteoarthritis, right knee | CPT/HCPCS: 73560; 93971 ==

== ENCOUNTER 2024-11-19 14:06 | Outpatient (REF) | payer MEDICAID, SELFPAY ==
[2024-11-19 16:11] LABS: Estimated Average Glucose 200 mg/dL; Hemoglobin A1C 219.4333 umol/L; Hemoglobin A1c % 8.6 % (<6.0)
[2024-11-19 16:16] LABS: Alanine Aminotransferase 25 U/L (0-31); Albumin Level 3.8 g/dL (3.5-5.0); Alkaline Phosphatase 139 U/L (39-117); Anion Gap 15 (12-20); Aspartate Amino Transferase 24 U/L (5-31); Bilirubin Direct 0.1 mg/dL (0.0-0.5); Bilirubin Total 0.3 mg/dL (0.0-1.0); Blood Urea Nitrogen 31 mg/dL (9-16); Calcium 9.5 mg/dL (8.4-10.2); Carbon Dioxide 24 mmol/L (22-29); Chloride 106 mmol/L (96-108); Cholesterol 234 mg/dL (<200); Estimated Glomerular Filt Rate > 60; Glucose Random 219 mg/dL (60-115); HDL Cholesterol 59 mg/dL (>40); LDL Cholesterol Calculated 135 mg/dL (<100); Potassium 4.6 mmol/L (3.3-5.1); Sodium 140 mmol/L (135-145); Total Protein 7.2 g/dL (6.5-8.0); Triglycerides 202 mg/dL (<150)
[2024-11-19 16:34] LABS: Creatinine Urine 236.19 mg/dL; Microalbum/Creatinine Ratio Ur 40.6 ug/mg cr (<30)
--- OUTSIDE RECORDS SUMMARY | 2024-11-19 16:58 | XMS_ITS | Encounter Summary ---
Author Organization [employer] Address [address] [facility] 7t [place] [address] Care Team Providers Care Multifold Operator Name Role Phone Aleisha Morillo MD Primary Care Provider Purvi Sahni PharmD Unavailable Lester Santana Unavailable Encounter Details Date Type Department Care Team (Late st Contact Info) Description 09/04/2022 Abstract [facility] [address] [place] [address] Aleisha Morillo MD [address] [place] [address] Social History Tobacco Use Types Packs/Day Years Used Date Smoking Tobacco: Never Assessed Comments Unknown Sex and Gender Information Value Date Recorded Sex Assigned at Female 05/29/2022 10:18 AM EDT Legal Sex Female 10:18 AM EDT Gender Identity Female 05/29/2022 10:18 AM EDT Sexual Orientation Choose not to disclose 2021 10:18 AM EDT documented as of this encounter Plan of Treatment Upcoming Encounters Date Type Department Care Team (Late st Contact Info) Description 12/03/2024 2:30 PM EDT Medication Management [facility] [address] [place] [address] Purvi Sahni, PharmD [address] [place] [address] 02/11/2025 3:15 PM EDT Office Visit [facility] [address] [place] [address] Aleisha oMrillo MD [address] [place] [address] documented as of this encounter Procedures Procedure Name Priority Date/Time Associated Diagnosis Comments MAMMOGRAPHY Routine 04/28/2022 PAP SMEAR Routine 04/28/2022 12:00 AM EDT COLONOSCOPY Routine 01/13/2019 documented in this encounter Results * Pap Smear (04/28/2022 12:00 AM EDT) Swab Historical Provider LAB CYTOLOGY ORDERABLES F inal Result [facility] * Mammography (04/28/2022) Mammogram normal Anatomical Region Laterality Modality Other Historical Provider HEALTH MAINTENANCE Final Result * Colonoscopy (01/13/2019) Colonoscopy Tubular adenoma with Dr. Deluca Historical Provider HEALTH MAINTENANCE Final Result documented in this encounter Visit Diagnoses Not on filedocumented in this encounter Care Teams Multifold Operator Relationship Specialty Start Date End Date Aleisha Morillo MD [address] [place] [address] PCP - General Family Medicine 07/30/18 Purvi Sahni, YobanyD [address] [place] [address] Pharmacist Internal Medicine 10/26/22 Lester Santana [address] [place] [address] Drive [address] [place], [place] Neurosurgery 06/19/24 Chun Felix MD [address] [place] [address] Psychiatrist Psychiatry 05/07/24 Amalia Hernandez MD [facility] [address] [facility] Gynecology 06/19/24 HANY [facility] Gastroenterology [address] [place] [address] Gastroenterology 07/14/24 [facility] [address] [place] [address] Optometry 10/29/24 documented as of this encounter
--- OUTSIDE RECORDS SUMMARY | 2024-11-19 16:58 | XMS_ITS | Encounter Summary ---
Author Organization [employer] Address [address] [facility] 7t [place] [address] Care Team Providers Care National Expansion Recruiter Name Role Phone Aleisha Morillo MD Primary Care Provider [phone]- [phone] Purvi Sahni PharmD Unavailable Lester Santana Unavailable Reason for Visit * Reason Comments Med Refill Encounter Details Date Type Department Care Team (Late Contact Info) Description 10/10/2022 Refill [facility] [address] [place], [place] [phone] Aleisha Morillo MD [address] [place], [place] [phone] Mild intermittent asthma without complication Social History Tobacco Use Types Packs/Day Years Used Date Smoking Tobacco: Never Assessed Depression Answer Date Recorded Patient Health Questionnaire-9 Score 0 10/05/2022 Depression Answer Date Recorded Patient Health Questionnaire-2 Score 0 10/05/2022 Comments Unknown Sex and Gender Information Value Date Recorded Sex Assigned at Female 05/29/2022 10:18 AM EDT Legal Sex Female 10:18 AM EDT Gender Identity Female 05/29/2022 10:18 AM EDT Sexual Orientation Choose not to disclose 2021 10:18 AM EDT COVID-19 Exposure Response Date Recorded In the last 10 days, have yo u been in contact with someone who was confirmed or suspected to have Coronavirus/COVID-19? No / Unsure 10/05/2022 1:10 PM EST documented as of this encounter Plan of Treatment Upcoming Encounters Date Type Department Care Team (Late Contact Info) Description 12/03/2024 2:30 PM EDT Medication Management [facility] [address] [place] [phone] Purvi Sahni, PharmD [address] [place] [address] 02/11/2025 3:15 PM EDT Office Visit [facility] [address] [place] [address] Aleisha Morillo MD [address] [place] [address] documented as of this encounter Visit Diagnoses Diagnosis Mild intermittent asthma without complication documented in this encounter Additional Health Concerns Assessment Noted Time PHQ-9 Depression Total Score: 0 10/06/19 23 1:30 PM EST documented as of this encounter Care Teams National Expansion Recruiter Relationship Specialty Start Date End Date Aleisha Morillo MD [address] [place] [address] PCP - General Family Medicine 07/30/18 Purvi Sahni, PharmD [address] [place] [address] Pharmacist Internal Medicine 10/26/22 Lester Santana [address] [place] [address] Drive [address] [place] [address] Neurosurgery 06/19/24 Chun Felix MD [address] [place] [address] Psychiatrist Psychiatry 05/07/24 Amalia Hernandez MD [address] Gynecology 06/19/24 H[facility] Gastroenterology [address] [place] [address] Gastroenterology 07/14/24 [facility] [address] [place], [place] [phone] Optometry 10/29/24 documented as of this encounter
--- OUTSIDE RECORDS SUMMARY | 2024-11-19 16:58 | XMS_ITS | Encounter Summary ---
Author Organization [employer] Address [address] [facility] 7t [place] [address] Care Team Providers Care Tent Finisher Name Role Phone Aleisha Morillo MD Primary Care Provider + [phone] Purvi Sahni PharmD Unavailable Lester Santana Unavailable Encounter Details Date Type Department Care Team (Late Contact Info) Description 02/26/[address] [facility] [address] [place] [address] [phone] Aleisha Morillo MD [address] [place], [place] [phone] Social History Tobacco Use Types Packs/Day Years [...] Description 12/03/2024 2:30 PM EDT Medication Management [facility] [address] [place] [address] Purvi Sahni, PharmD [address] [place], [place] [phone] 02/11/2025 3:15 PM EDT Office Visit [facility] [address] [place] [address] Aleisha Morillo MD [address] [place] [address] documented as of this encounter Goals Goal Patient Goal Type Associated Problems Recent Progress Patient-Stated? Author Hemoglobin A1c < 7 Result Component 8.6(11/19/2024 2:08 PM EDT) No Purvi Sahni, PharmD documented as of this encounter Visit Diagnoses Not on filedocumented in this encounter Additional Health Concerns Assessment Noted Time PHQ-9 Depression Total Score: 0 10/06/19 1:30 PM EST documented as of this encounter Care Teams Tent Finisher Relationship Specialty Start Date End Date Aleisha Morillo MD [address] [place] [address] PCP - General Family Medicine 07/30/18 Purvi Sahni, PharmD [address] [place] [phone] Pharmacist Internal Medicine 10/26/22 Lester Santana [address] [place] [address] [address] [place] [address] Neurosurgery 06/19/24 Chun Felix MD [address] [place] [address] Psychiatrist Psychiatry 05/07/24 Amalia Hernandez MD [facility] [address] [place] [address] Gynecology 06/19/24 H[facility] Gastroenterology [address] [place] [address] Gastroenterology 07/14/24 [facility] [address] [place], [place] [phone] Optometry 10/29/24 documented as of this encounter
--- OUTSIDE RECORDS SUMMARY | 2024-11-19 16:58 | XMS_ITS | Clinical Summary ---
Author Organization [facility] ity Address [address] [place] [address] Care Team Providers Care Central Office Worker Name Role Phone Aleisha Morillo MD Primary Care Provider [phone]- [phone] Social History Tobacco Use Types Packs/Day Years Used Date Smoking Tobacco: Never Assessed Comments Unknown Sex and Gender Information Value Date Recorded Sex Assigned at Not on file Legal Sex Female 1:30 AM EST Gender Identity Not on file Sexual Orientation Not on file Plan of Treatment Health Maintenance Due Date Last Done Comments Breast Cancer Screening 1968 DTaP,Tdap,and Td Vaccines (1 - Tdap) 1987 Hepatitis B Vaccines (1 of 3 - 19+ 3-dose series) 1987 Cervical Cancer Screening: P ap Smear 1989 Pneumococcal Vaccine: 50+ Ye ars (1 of 1 - PCV) 2018 Zoster Vaccines (1 of 2) 2018 Colorectal Cancer Screening: Colonoscopy 07/02/2022 Depression Screening 07/02/2022 HIV Screening 07/02/2022 Hepatitis C Screening 07/02/2022 Social Influencers of Health Screening 07/02/2022 COVID-19 Vaccine (2023-2 5 season) 2024 Influenza Vaccine (Season Ended) 2025 HIB Vaccines Aged Out No longer eligi ble based on patient's age to complete this topic HPV Vaccines Aged Out No longer eligi ble based on patient's age to complete this topic Hepatitis A Vaccines Aged Out No long er eligible based on patient's age to complete this topic IPV Vaccines Aged Out No longer eligi ble based on patient's age to complete this topic MMR Vaccines Aged Out No longer eligi ble based on patient's age to complete this topic Meningococcal ACWY Vaccine Aged Out N o longer eligible based on patient's age to complete this topic Meningococcal B Vaccine Aged Out No l onger eligible based on patient's age to complete this topic Pneumococcal Vaccine: Pediat rics (0 to 5 Years) and At-Risk Patients (6 to 64 Years) Aged Out No longer eligible b ased on patient's age to complete this topic RSV Immunization Patients Un home 20 months Aged Out No longer eligible b ased on patient's age to complete this topic Varicella Vaccines Aged Out No longer eligible based on patient's age to complete this topic Care Teams Central Office Worker Relationship Specialty Start Date End Date Aleisha Morillo MD [address] [place] [phone] PCP - General Internal Medicine 09/27/11
--- OUTSIDE RECORDS SUMMARY | 2024-11-19 16:58 | XMS_ITS | Encounter Summary ---
Author Organization [employer] Address [address] [facility] 7t [place] [address] Care Team Providers Care Radiocommunications Technician Name Role Phone Aleisha Morillo MD Primary Care Provider [phone]- [phone] Purvi Sahni PharmD Unavailable [phone] Lester Santana Unavailable Reason for Visit * Reason Onset Date Comments Durable Medical Equipment 11/01/2022 Encounter Details Date Type Department Care Team (Late st Contact Info) Description 11/01/2022 Telephone [facility] [address] [place], [place] [phone] Aleisha Morillo MD [address] [place], [place] [phone] Durable Medical Equipment Social History Tobacco Use Types Packs/Day Years [...] was confirmed or suspected to have Coronavirus/COVID-19? Unable to assess 10/26/2022 2:33 PM EDT documented as of this encounter Miscellaneous Notes * Telephone Encounter - Carey Ragsdale - 11/02/2022 9:17 AM EDT Called pt no answer LVM to call [facility] for refills on wipes and pads at [phone]. All paperwork was processed in August 2022. She needs to call them for refills we don't call vendor for refills also if vendor needs paperwork from us they will fax it to us to fill out and send back it's all filedunder media. * Telephone Encounter - Caitlyn Hernandez - 11/01/2022 4:27 PM EDT TC from pt requesting pull ups and sanitary wipes . documented in this encounter Plan of Treatment Upcoming Encounters Date Type Department Care Team (Late st Contact Info) Description 12/03/2024 2:30 PM EDT Medication Management [facility] [address] [place] [phone] Purvi Sahni PharmD [address] [place] [address] 02/11/2025 3:15 PM EDT Office Visit [facility] [address] [place] [address] Aleisha Morillo MD [address] [place] [address] documented as of this encounter Visit Diagnoses Not on filedocumented in this encounter Additional Health Concerns Assessment Noted Time PHQ-9 Depression Total Score: 0 10/06/19 23 1:30 PM EST documented as of this encounter Care Teams Radiocommunications Technician Relationship Specialty Start Date End Date Aleisha Morillo MD [address] [place] [address] PCP - General Family Medicine 07/30/18 Purvi Sahni PharmD [address] [place] [address] [place] [address] Pharmacist Internal Medicine 10/26/22 Lester Santana: [phone] [address] [place] [address] Drive [address] [place], [place] Neurosurgery 06/19/24 Chun Felix MD [address] [place] [address] Psychiatrist Psychiatry 05/07/24 Amalia Hernandez MD [facility] [address] [place] [address] Gynecology 06/19/24 H[facility] Gastroenterology [address] [place] [address] Gastroenterology 07/14/24 [facility] [address] [place] [address] Optometry 10/29/24 documented as of this encounter
--- OUTSIDE RECORDS SUMMARY | 2024-11-19 16:58 | XMS_ITS | Encounter Summary ---
Author Organization [employer] Address [address] [facility] 7t [place] [address] Care Team Providers Care Top Tile Decorator Name Role Phone Aleisha Morillo MD Primary Care Provider + [phone] Purvi Sahni PharmD Unavailable Lester Santana Unavailable Encounter Details Date Type Department Care Team (Late st Contact Info) Description 07/18/2022 Orders Only [facility] [address] [place] [address] [phone] Juju Norton LPN Social History Tobacco Use Types Packs/Day Years [...] Description 12/03/2024 2:30 PM EDT Medication Management [facility] MEDICINE [address] [place] [address] [phone] Purvi Sahni, PharmD [address] [place], [place] [phone] 02/11/2025 3:15 PM EDT Office Visit [facility] [address] [place] [address] [phone] Aleisha Morillo MD [address] [place] [address] [phone] documented as of this encounter Procedures Procedure Name Priority Date/Time Associated Diagnosis Comments CHLAMYDIA/N. GONORRHOEAE RNA, TMA, UROGENITAL Routine 02/08/2023 2:45 PM EDT CONFIRMATORY SYPHILIS PROFILE Routine 02/08/2023 2:39 PM EDT HEPATITIS C ANTIBODY REFLEX Routine 02/08/2023 2:39 PM EDT SYPHILIS SCREEN Routine 02/08/2023 2:39 PM EDT HIV ANTIBODY/ANTIGEN ([place] DPH) Routine 02/08/2023 2:39 PM EDT HEPATIC FUNCTION PANEL Routine 2:39 PM EDT LIPID PANEL, STANDARD Routine 02/08/2023 2:39 PM EDT BASIC METABOLIC PANEL Routine 02/08/2023 2:39 PM EDT BI MAMMOGRAM DIAGNOSTIC TOMOSYNTHESIS RIGHT Routine 08/15/2022 2:35 PM EST documented in this encounter Results * Chlamydia/N. Gonorrhoeae RNA, TMA, Urogenitial (02/08/2023 2:45 PM EDT) Pathologist [facility] CT PCR NOT DETECTED Not Detect. [facility] Comment:A not detected test result does not exclude the possibilityof infection because test results can be affected byimproper specimen collection, concurrent antibiotic therapy,or the number of organisms in the specimen which may bebelow the sensitivity of the test. As with many diagnostictests, results from the Xpert CT/NG assay should beinterpreted in conjunction with other laboratory andclinical data available to the clinician.Xpert CT/NG performance has not been evaluated in patientsless than 14 years of age. The assay should not be used forthe evaluationof suspected sexual abuse or for other medico-legalindications. Additional testing is recommended in anycircumstance when false positive or false negative resultscould lead to adverse medical, social or psychologicalconsequences. NG PCR NOT DETECTED Not Detect. [facility] Comment:A not detected test result does not exclude the possibilityof infection because test results can be affected byimproper specimen collection, concurrent antibiotic therapy,or the number of organisms in the specimen which may bebelow the sensitivity of the test. As with many diagnostictests, results from the Xpert CT/NG assay should beinterpreted in conjunction with other laboratory andclinical data available to the clinician.Xpert CT/NG performance has not been evaluated in patientsless than 14 years of age. The assay should not be used forthe evaluationof suspected sexual abuse or for other medico-legalindications. Additional testing is recommended in anycircumstance when false positive or false negative resultscould lead to adverse medical, social or psychologicalconsequences. 02/08/2023 2:45 PM EDT 02/08/2023 4:32 PM EDT Narrative [facility] - 02/09/2023 1:37 PM EDT Urine [facility] Exter nal Provider LAB MICROBIOLOGY - GENERAL ORDERABLES Final Result Performing Organization Address [facility]/ZIP Co de Phone Number [facility] [address] [place] [phone] * (ABNORMAL) Confirmatory Syphilis Profile (02/08/2023 2:39 PM EDT) Rapid Plasma Reagin, Quant Non-React douglas Nonreactive [facility] Treponema pallidum Antibody, Particle Agglutination Reactive( A) Nonreactive [facility] Comment:These results must b e reported by the ordering clinician orclinical facility to the [facility] required by state law. 02/08/2023 2:39 PM EDT 02/09/2023 12:16 PM EDT Aleisha Morillo MD LAB BLOOD ORDERABLES Final Result [facility] [address] [place] [phone] [phone] * (ABNORMAL) Syphilis Screen (02/08/2023 2:39 PM EDT) Syphilis Screen Reactive( A) Nonreactive [facility] Comment:Reactive specimens a re sent to the State Labfor confirmatory tests. 02/08/2023 2:39 PM EDT 02/08/2023 4:25 PM EDT [facility] External Provider LAB BLO OD ORDERABLES Final Result Performing Organization Address [facility] Co de Phone Number [facility] [address] [place] [address] [phone] * HIV Ab/Ag ([place] DPH) (02/08/2023 2:39 PM EDT) HIV AB/AG Nonreactive Nonreactive [facility] Comment:HIV-1 p24 Ag and/or HIV-1/HIV-2 Ab not detected.A test result that is nonreactive does not exclude thepossibility of exposure to or infection with HIV-1 and/orHIV-2. Nonreactive results in this assay for individualswith prior exposure to HIV-1 and/or HIV-2 may be due toantigen and antibody levels that are below the limit ofdetection of this assay.The [employer] HIV Ag/Ab Combo assay result andsupplemental assay results should be interpreted inconjunction with the patient's clinical presentation,history and other laboratory results. If the results areinconsistent with clinical evidence, additional testing issuggested to confirm the result. 02/08/2023 2:39 PM EDT 02/08/2023 4:25 PM EDT [facility] External Provider LAB BLO OD ORDERABLES Final Result Performing Organization Address [facility] Co de Phone Number [facility] [address] [place] [phone] * Hepatitis C Antibody Reflex (02/08/2023 2:39 PM EDT) Hepatitis C Antibody Nonreactive Nonreactive [facility] Comment:Antibodies to HCV no t detected; does not exclude early acuteHCV infection. 02/08/2023 2:39 PM EDT 02/08/2023 4:25 PM EDT [facility] External Provider LAB BLO OD ORDERABLES Final Result Performing Organization Address [facility] Co de Phone Number [facility] [address] [place] [phone] * Lipid Panel, Standard (02/08/2023 2:39 PM EDT) Triglycerides 99 mg/dL [facility] Comment:Desirable Triglyceri de: less than 150 mg/dLBorderline High Triglyceride 150-199 mg/dLHigh Triglyceride: 200-499 mg/dLVery High Triglyceride: greater than or equal to 5OO mg/dL Cholesterol 248 mg/dL [facility] Comment:Desirable Cholestero l: less than 200 mg/dLBorderline High Cholesterol: 200-239 mg/dLHigh Cholesterol: greater than 239 mg/dL LDL Cholesterol Calculated 170 mg/dl [facility] Comment:Desirable LDL: less than 100 mg/dLNear Optimal/Above Optimal LDL: 110- 129 mg/dLBorderline High LDL: 130-159 mg/dLHigh LDL: 160-189 mg/dLVery High LDL: greater than or equal to 190 mg/dL HDL Cholesterol 59 mg/dL [facility] Comment:Desirable HDL: great er than 40 mg/dL Note: This HDL assay may give artificially low results in patients with liver disease. 02/08/2023 2:39 PM EDT 02/08/2023 4:25 PM EDT [facility] External Provider LAB BLO OD ORDERABLES Final Result Performing Organization Address [facility] Co de Phone Number [facility] [address] [place] [phone] * (ABNORMAL) Basic Metabolic Panel (02/08/2023 2:39 PM EDT) Pathologist [facility] Sodium 140 135 - 145 mmol/L [facility] Potassium 4.5 3.3 - 5.1 mmol/L [facility] Chloride 107 96 - 108 mmol/L [facility] Carbon Dioxide 24 22 - 29 mmol/L [facility] Anion Gap 14 12 - 20 [facility] Urea Nitrogen (BUN) 18(H) 9 - 16 mg/dL [facility] Creatinine, Serum 0.77 0.5 - 1.4 mg/dL [facility] Estimated Glomerular Filt Rate >60 [facility] Comment:NOTE: For -Am erican individuals, multiply the result by 1.210.Chronic Kidney Disease: Estimated GFR < 60 mL/min/1.80i7Fpprhv Kidney Disease: Estimated GFR < 15 mL/min/1.73m2 Glucose 149(H) 60 - 115 mg/dL [facility] Calcium 9.8 8.4 - 10.2 mg/dL [facility] 02/08/2023 2:39 PM EDT 02/08/2023 4:25 PM EDT us [facility] External Provider LAB BLO OD ORDERABLES Final Result [facility] [address] [place] [phone] * (ABNORMAL) Hepatic Function Panel (02/08/2023 2:39 PM EDT) Bilirubin, Total 0.3 0.0 - 1.0 mg/dL [facility] Bilirubin, Direct 0.1 0.0 - 0.5 mg/dL [facility] Aspartate Amino Transferase 18 5 - 31 U/L [facility] Alanine Aminotransferase 19 0 - 31 U/L [facility] Total Protein 7.1 6.5 - 8.0 g/dL [facility] Albumin Level 3.8 3.5 - 5.0 g/dL [facility] Alkaline Phosphatase 154(H) 39 - 117 U/L [facility] 02/08/2023 2:39 PM EDT 02/08/2023 4:25 PM EDT us [facility] External Provider LAB BLO OD ORDERABLES Final Result [facility] [address] [place] [phone] * BI Mammogram Diagnostic Tomosynthesis Right (08/15/2022 2:35 PM EST) Anatomical Region Laterality Modality Breast Right Mammography 08/15/2022 2:35 PM EST Narrative 08/15/2022 2:45 PM EST ? [facility] ? [address] ?[place] [address] ? Mammography Report ? Signed ? Patient: Springer,Becky ?MR#: [id number] ?? [id number] ? : 1970 ?Acct:[id number] ? Age/Sex: 52 / F ?ADM Date: /17/23 ? Loc: HO.MAMMO ? Attending Dr: Aleisha Morillo MD ? Ordering Physician: Aleisha Morillo MD ? Results: 3.6MProbably Benign Finding - Short 6 M F/U ?? Suggested ? Date of Service: 08/15/22 ?Follow Up: 1 Year From Orig ?? inal Mammogram ? Procedure(s): MM tomosynthesis diagnostic RT ?? Accession Number(s): [id number] ? cc: Aleisha Morillo MD ? EXAMINATION: ?? MM DIAGNOSTIC DIGITAL BREAST TOMOSYNTHESIS, RIGHT ? CLINICAL INFORMATION: ? Follow-up probable benign calcifications central inner right breast. ? The lifetime risk of breast cancer based on the Tyrer-Cuzick Model is ?? 12%. ? COMPARISON: ?? Mammography: 01/24/2022, 03/10/2021, 03/08/2021 (BI-RADS 0), 07/03/2019 ? TECHNIQUE: ?? Digital breast tomosynthesis is performed in both the craniocaudal and ?? mediolateral oblique views along with computer-aided detection (CAD). ?? Synthesized 2D images are generated from the tomosynthesis. Additional ?? CC and MLO views are obtained along with magnification LM x2 and ?? magnification CC. ? FINDINGS: ?? There are scattered areas of fibroglandular density (ACR BI-RADS breast ?? composition Category b). ? Breast tissue composition borders on predominantly fatty. Background ?? stromal and fibroglandular densities are stable and there is no ?? interval mass or architectural abnormality or developing density. There ?? are scattered round and rim calcifications and vascular calcifications ?? again seen. ? Grouped calcifications posterior central 5:00 position are similar to ?? prior diagnostic exam. On the MLO tomography, they are suggestive of ?? vascular calcifications, not definitive on the magnification views. No ?? increasing calcifications. ? Results are provided to the patient at time of visit by the ?? technologist. ? MM/MM tomosynthesis diagnostic RT ?? IMPRESSION: ?? No significant changes from prior exam. ? ASSESSMENT: ? BI-RADS 3: Probably Benign ? RECOMMENDATION: ?? Diagnostic mammography at time of bilateral annual exam, due in 6 ?? months. ? This patient's information was entered into a reminder system with a ?? target due date for their next mammogram. ? Dictated By: ?Italo Bear MD ? Signed By: ?<Electronically signed by Italo Bear MD in OV> ?08/15/22 1442 ? DD/ 1435 ? TD/TT: ? Livestock Trucker: KYLE ? Procedure Note Donotuseinterpreter, Image - 09/04/2022 [facility] [address] [place] [address] Mammography Report Signed Patient: Dandy Springer#: [id number] : 1970Acct:[id number] Age/Sex: 52 / FADM Date: 08/15/22 Loc: HO.MAMMO Attending Dr: Aleisha Morillo MD Ordering Physician: Aleisha Morillo MD Results: 3.6MProbably Benign Finding - Short 6 M F/U Suggested Date of Service: 08/15/22Follow Up: 1 Year From Orig inal Mammogram Procedure(s): MM tomosynthesis diagnostic RT Accession Number(s): [id number] cc: Aleisha Morillo MD EXAMINATION: MM DIAGNOSTIC DIGITAL BREAST TOMOSYNTHESIS, RIGHT CLINICAL INFORMATION: Follow-up probable benign calcifications central inner right breast. The lifetime risk of breast cancer based on the Tyrer-Cuzick Model is 12%. COMPARISON: Mammography: 01/24/2022, 03/10/2021, 03/08/2021 (BI-RADS 0), 07/03/2019 TECHNIQUE: Digital breast tomosynthesis is performed in both the craniocaudal and mediolateral oblique views along with computer-aided detection (CAD). Synthesized 2D images are generated from the tomosynthesis. Additional CC and MLO views are obtained along with magnification LM x2 and magnification CC. FINDINGS: There are scattered areas of fibroglandular density (ACR BI-RADS breast composition Category b). Breast tissue composition borders on predominantly fatty. Background stromal and fibroglandular densities are stable and there is no interval mass or architectural abnormality or developing density. There are scattered round and rim calcifications and vascular calcifications again seen. Grouped calcifications posterior central 5:00 position are similar to prior diagnostic exam. On the MLO tomography, they are suggestive of vascular calcifications, not definitive on the magnification views. No increasing calcifications. Results are provided to the patient at time of visit by the technologist. MM/MM tomosynthesis diagnostic RT IMPRESSION: No significant changes from prior exam. ASSESSMENT: BI-RADS 3: Probably Benign RECOMMENDATION: Diagnostic mammography at time of bilateral annual exam, due in 6 months. This patient's information was entered into a reminder system with a target due date for their next mammogram. Dictated By: Italo Bear MD Signed By: <Electronically signed by Italo Bear MD in OV> 08/15/22 1442 DD/ 1435 TD/TT: Livestock Trucker: KYLE [facility] External Provider IMG BI PROCEDURES Final Result documented in this encounter Visit Diagnoses Not on filedocumented in this encounter Care Teams Top Tile Decorator Relationship Specialty Start Date End Date Yisel, MD Aleisha [address] [place] [address] PCP - General Family Medicine 07/30/18 Purvi Sahni, YobanyD [address] [place] [address] Pharmacist Internal Medicine 10/26/22 Lester Santana [address] [place] [address] [place], [place] Neurosurgery 06/19/24 Chun Felix MD [address] [place] [phone] Psychiatrist Psychiatry 05/07/24 Amalia Hernandez MD [facility] 33[address] [facility] Gynecology 06/19/24 HANY Diamond [facility] Gastroenterology 33[address] [place] [address] Gastroenterology 07/14/24 [facility] 36[address] [place] [address] Optometry 10/29/24 documented as of this encounter
--- OUTSIDE RECORDS SUMMARY | 2024-11-19 16:58 | XMS_ITS | Encounter Summary ---
Author Organization [employer] Address [address] [facility] 7t [place] [address] Care Team Providers Care Ethics Officer Name Role Phone Aleisha Morillo MD Primary Care Provider +- [phone] Purvi Sahni PharmD Unavailable Lester Santana Unavailable Encounter Details Date Type Department Care Team ([facility] Contact Info) Description 10/31/2022 Telephone [facility] [address] [place] [address] [phone] Aleisha Morillo MD [address] [place] [address] [phone] Social History Tobacco Use Types Packs/Day Years [...] PM EDT documented as of this encounter Plan of Treatment Upcoming Encounters Date Type Department Care Team ([facility] Contact Info) Description 12/03/2024 2:30 PM EDT Medication Management [facility] [address] [place] [address] [place] [address] Purvi Sahni, PharmD [address] [place] [address] 02/11/2025 3:15 PM EDT Office Visit [facility] [address] [place] [address] Aleisha Morillo MD [address] [place] [phone] documented as of this encounter Visit Diagnoses Not on filedocumented in this encounter Additional Health Concerns Assessment Noted Time PHQ-9 Depression Total Score: 0 10/06/19 23 1:30 PM EST documented as of this encounter Care Teams Ethics Officer Relationship Specialty Start Date End Date Aleisha Morillo MD [address] [place] [phone] PCP - General Family Medicine 07/30/18 Purvi Sahni, PharmD [address] [place] [phone] Pharmacist Internal Medicine 10/26/22 Lester Santana [address] [place] [address] Drive [address] [place], [place] Neurosurgery 06/19/24 Chun Felix MD [address] [place] [address] Psychiatrist Psychiatry 05/07/24 Amalia Hernandez MD [address] Gynecology 06/19/24 HANY Diamond [facility] Gastroenterology [address] [place] [address] Gastroenterology 07/14/24 [facility] [address] [place], [place] [phone] Optometry 10/29/24 documented as of this encounter
--- OUTSIDE RECORDS SUMMARY | 2024-11-19 16:58 | XMS_ITS | Encounter Summary ---
Author Organization [employer] Address [address] [facility] 7t [place] [address] Care Team Providers Care Tailor Apprentice Name Role Phone Aleisha Morillo MD Primary Care Provider +- [phone] Purvi Sahni PharmD Unavailable Lester Santana Unavailable Reason for Visit * Reason Onset Date Comments fORM eRROR 11/21/2022 Encounter Details Date Type Department Care Team (Late st Contact Info) Description 11/21/2022 Telephone [facility] [address] [place], [place] [phone] Aleisha Morillo MD [address] [place], [place] [phone] fORM eRROR Social History Tobacco Use Types Packs/Day Years [...] encounter Miscellaneous Notes * Telephone Encounter - Khris Browning - 11/21/2022 2:55 PM EDT Tc from pt requesting for facility to give a call to [facility] ( [phone]) in regards for orders for the Bed Pads, Adult ( XL ) Pull ups, and liners, pt states [facility] informs somethings were missing and were incorrectly. Please contact pt if any questions at [phone] Romanian Speaker documented in this encounter Plan of Treatment Upcoming Encounters Date Type Department Care Team (Late st Contact Info) Description 12/03/2024 2:30 PM EDT Medication Management [address] [address] Purvi Sahni PharmD [address] [place] [address] 02/11/2025 3:15 PM EDT Office Visit [facility] [address] [place] [phone] Aleisha Morillo MD [address] [place] [address] documented as of this encounter Visit Diagnoses Not on filedocumented in this encounter Additional Health Concerns Assessment Noted Time PHQ-9 Depression Total Score: 0 10/06/19 23 1:30 PM EST documented as of this encounter Care Teams Tailor Apprentice Relationship Specialty Start Date End Date Aleisha Morillo MD [address] [place] [phone] PCP - General Family Medicine 07/30/18 Purvi Sahni PharmD [address] [place] [address] Pharmacist Internal Medicine 10/26/22 Lester Santana [address] [place] [address] [address] [place] [address] Neurosurgery 06/19/24 Chun Felix MD [address] [place] [address] Psychiatrist Psychiatry 05/07/24 Amalia Hernandez MD [facility] 3300 [facility] Gynecology 06/19/24 HANY Diamond [facility] Gastroenterology [address] [place] [address] Gastroenterology 07/14/24 [facility] 3640 [place] [address] Optometry 10/29/24 documented as of this encounter
--- OUTSIDE RECORDS SUMMARY | 2024-11-19 16:58 | XMS_ITS | Encounter Summary ---
Author Organization [employer] Address 75 [facility] 7t [place] [address] Care Team Providers Care Inspector Machined Parts Name Role Phone Aleisha Morillo MD Primary Care Provider + [phone] Purvi Sahni PharmD Unavailable Letser Santana Unavailable Reason for Visit * Reason Comments Med Refill Encounter Details Date Type Department Care Team (Late Contact Info) Description 04/22/2023 Refill [facility] [address] [place] [address] Karin Winter MD [address] [place], [place] [phone] Pain Social History Tobacco Use Types Packs/Day Years [...] Description 12/03/2024 2:30 PM EDT Medication Management [facility] [address] [place], [place] [phone] Purvi Sahni, PharmD [address] [place] [address] 02/11/2025 3:15 PM EDT Office Visit [facility] [address] [place] [address] Aleisha Morillo MD [address] [place] [address] documented as of this encounter Goals Goal Patient Goal Type Associated Problems Recent Progress Patient-Stated? Author Hemoglobin A1c < 7 Result Component 8.6(11/19/2024 2:08 PM EDT) No Purvi Sahni, PharmD documented as of this encounter Visit Diagnoses Diagnosis Pain Generalized pain documented in this encounter Additional Health Concerns Assessment Noted Time PHQ-9 Depression Total Score: 0 10/06/19 1:30 PM EST documented as of this encounter Care Teams Inspector Machined Parts Relationship Specialty Start Date End Date Aleisha Morillo MD [address] [place] [address] PCP - General Family Medicine 07/30/18 Purvi Sahni, PharmD [address] [place] [address] Pharmacist Internal Medicine 10/26/22 Lester Santana [address] [place] [address] Drive [address] [place], [place] Neurosurgery 06/19/24 Chun Felix MD [address] [place] [address] Psychiatrist Psychiatry 05/07/24 Amalia Hernandez MD [address] Gynecology 06/19/24 HANY Diamond [facility] Gastroenterology [address] [place] [address] Gastroenterology 07/14/24 [facility] [address] [place] [address] Optometry 10/29/24 documented as of this encounter
--- OUTSIDE RECORDS SUMMARY | 2024-11-19 16:59 | XMS_ITS | Encounter Summary ---
Author Organization [employer] Address [address] [facility] 7t [place] [address] Care Team Providers Care Manager General Name Role Phone Aleisha Morillo MD Primary Care Provider +- [phone] Purvi Sahni PharmD Unavailable [phone]- [phone] Lester Santana Unavailable Reason for Referral * Consultation (Routine) - Authorized Specialty Diagnoses / Procedures Referred By Jonny merrill Referred To Contact Ophthalmology Diagnoses Poorly controlled type 2 diabetes mellitus with neuropathy ([facility]/HCC) Aleisha Morillo MD [address] [place] [phone] Phone: tel: fax: Referral ID Status Reason Start Date Expiration Date Visits Requested Visits Authorized [id number] Authorized Specialty Services Required 11/19/2024 11/19/2025 1 1 Reason for Visit * Consultation (Routine) - Authorized Specialty Diagnoses / Procedures Referred By Jonny merrill Referred To Contact Pharmacy Diagnoses Poorly controlled type 2 diabetes mellitus with neuropathy ([facility]/HCC) Aleisha Morillo MD [address] [place] [phone] Phone: tel: fax: Referral ID Status Reason Start Date Expiration Date Visits Requested Visits Authorized [id number] Authorized Consult and Treat 10/29/2024 10/29/2025 6 6 Encounter Details Date Type Department Care Team (Latest Contact Info) Description 11/19/2024 2:30 PM EDT Clinical Support [facility] [address] [place] [address] Purvi Sahni, PharmD [address] [place] [address] 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) (Primary Dx) Social History Tobacco Use Types Packs/Day Years Used Date Smoking Tobacco: Never Smokeless Tobacco: Never Depression Answer Date Recorded Patient Health Questionnaire-9 Score 15 03/27/2024 Patient Health Questionnaire-9 Score 15 03/27/2024 Last PHQ-9: Questionnaire Data Not on file 0 03/27/2024 Housing Stability Answer Date Recorded What is your housing situation today? I have macie phillips 05/02/[address] you li ve. Do you have problems with any of the following? None of the above 05/02/2024 Food Insecurity Answer Date Recorded Within the past 12 months, y ou worried that your food would run out before you got money to buy more: Sometimes True 2023 Within the past 12 months,th e food you bought just didn't last and you didn't have enough money to get more: Sometimes True 05/02/2024 Transportation Answer Date Recorded In the past 12 months, has l ack of transportation kept you from medical appts, meetings, work or from getting things needed for daily living? Yes, it has kept me from medical appointments or getting medications. 05/02/2024 Utilities Answer Date Recorded In the past 12 months, has t he electric, gas, oil or water company threatened to shut off services in your home? No 05/02/2024 Depression Answer Date Recorded Patient Health Questionnaire-2 Score 4 03/27/2024 Internet Access Answer Date Recorded Internet Access Q1 Yes 05/02/2024 Internet Access Q2 Not on file 05/02/2024 Comments Unknown Sex and Gender Information Value Date Recorded Sex Assigned at Female 05/29/2022 10:18 AM EDT Legal Sex Female 10:18 AM EDT Gender Identity Female 05/29/2022 10:18 AM EDT Sexual Orientation Choose not to disclose 2021 10:18 AM EDT documented as of this encounter Last Filed Vital Signs Vital Sign Reading Time Taken Comments Blood Pressure 98/68 11/19/2024 3:04 PM EDT Pulse 97 11/19/2024 3:04 PM EDT Temperature - - Respiratory Rate - - Oxygen Saturation - - Inhaled Oxygen Concentration - - Weight - - Height - - Body Mass Index - - documented in this encounter Plan of Treatment Upcoming Encounters Date Type Department Care Team (Late st Contact Info) Description 12/03/2024 2:30 PM EDT Medication Management [facility] [address] [place] [phone] Purvi Sahni PharmD [address] [place] [phone] 02/11/2025 3:15 PM EDT Office Visit [facility] [address] [place] [phone] Aleisha Morillo MD [address] [place] [phone] Scheduled Referrals Name Type Priority Associated Diagnoses Order Schedule Referral to Ophthalmology Outpatient Referral Routine 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) Expected: 11/19/2024 (Approximate), Expires: 11/19/2025 documented as of this encounter Goals Goal Patient Goal Type Associated Problems Recent Progress Patient-Stated? Author Hemoglobin A1c < 7 Result Component 8.6(11/19/2024 2:08 PM EDT) No Purvi Sahni PharmD documented as of this encounter Visit Diagnoses Diagnosis 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)- Primary documented in this encounter Additional Health Concerns Assessment Noted Time PHQ-9 Depression Total Score: 15 024 9:18 AM EDT documented as of this encounter Care Teams Manager General Relationship Specialty Start Date End Date Aleisha Morillo MD [address] [place] [address] [phone] PCP - General Family Medicine 07/30/18 Purvi Sahni, Christine [address] [place] [phone] Pharmacist Internal Medicine 10/26/22 Lester Santana [address] [place], [place] Neurosurgery 06/19/24 Chun Felix MD [address] [place] [phone] Psychiatrist Psychiatry 05/07/24 Amalia Hernandez MD [facility] [address] [place] [address] Gynecology 06/19/24 [facility] [address] [place] [address] Gastroenterology 07/14/24 [facility] [address] [place] [address] Optometry 10/29/24 documented as of this encounter
--- OUTSIDE RECORDS SUMMARY | 2024-11-19 16:59 | XMS_ITS | Encounter Summary ---
Author Organization [employer] Address [address] [facility] 7t [place] [address] Care Team Providers Care Sales Order Specialist Name Role Phone Aleisha Morillo MD Primary Care Provider +- [phone] Purvi Sahni PharmD Unavailable [phone]- [phone] Lester Santana Unavailable Reason for Visit * Reason Onset Date Comments rs no show visit 10/15/2024 Encounter Details Date Type Department Care Team (Late st Contact Info) Description 10/15/2024 Telephone [facility] [address] [place], [place] [phone] Magali Lorenzo, DDS [address] [place], [place] [phone] rs no show visit Social History Tobacco Use Types Packs/Day Years [...] AM EDT documented as of this encounter Miscellaneous Notes * Telephone Encounter - Corazon Hardy - 10/15/2024 3:14 PM EDT Patient was scheduled to come in on 08/22 and no showed due to hospitalization. That appt is still currently wait listed as well. She is looking to get that rescheduled. Patient has been informed that no show appts have a waiting period prior to being rescheduled. Patient understood and waiting forthe call to rescheduled DR documented in this encounter Plan of Treatment Upcoming Encounters Date Type Department Care Team (Late st Contact Info) Description 12/03/2024 2:30 PM EDT Medication Management [facility] [address] [place] [phone] Purvi Sahni, PharmD [address] [place] [address] 02/11/2025 3:15 PM EDT Office Visit [facility] [address] [place] [phone] Aleisha Morillo MD [address] [place] [address] documented as of this encounter Goals Goal Patient Goal Type Associated Problems Recent Progress Patient-Stated? Author Hemoglobin A1c < 7 Result Component 8.6(11/19/2024 2:08 PM EDT) No Purvi Sahni, Christine documented as of this encounter Visit Diagnoses Not on filedocumented in this encounter Additional Health Concerns Assessment Noted Time PHQ-9 Depression Total Score: 15 024 9:18 AM EDT documented as of this encounter Care Teams Sales Order Specialist Relationship Specialty Start Date End Date Aleisha Morillo MD [address] [place] [phone] PCP - General Family Medicine 07/30/18 Purvi Sahni, PharmD [address] [place] [phone] Pharmacist Internal Medicine 10/26/22 Lester Santana [address] [place] [address] [address] [place] [address] Neurosurgery 06/19/24 Chun Felix MD [address] [place] [phone] Psychiatrist Psychiatry 05/07/24 Amalia Hernandez MD [address] Gynecology 06/19/24 [facility] Gastroenterology [address] [place] [phone] Gastroenterology 07/14/24 [facility] [address] [place] [address] Optometry 10/29/24 documented as of this encounter
--- OUTSIDE RECORDS SUMMARY | 2024-11-19 16:59 | XMS_ITS | Encounter Summary ---
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) LIPID PANEL, STANDARD Routine 11/19/2024 2:08 PM EDT 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) BASIC METABOLIC PANEL Routine 11/19/2024 2:08 PM EDT 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) POCT GLUCOSE Routine 10/29/2024 9:37 AM EDT Poorly controlled type 2 diabetes mellitus with neuropathy ([facility]/HCC) POCT GLYCOSYLATED HEMOGLOBIN (HGB A1C) Routine 10/29/2024 9:35 AM EDT 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) documented in this encounter Results * (ABNORMAL) Basic Metabolic Panel (11/19/2024 2:08 PM EDT) Sodium 140 135 - 145 mmol/L [facility] Potassium 4.6 3.3 - 5.1 mmol/L [facility] Chloride 106 96 - 108 mmol/L [facility] Carbon Dioxide 24 22 - 29 mmol/L [facility] Anion Gap 15 12 - 20 [facility] Urea Nitrogen (BUN) 31(H) 9 - 16 mg/dL [facility] Creatinine, Serum 0.84 0.5 - 1.4 mg/dL [facility] Estimated Glomerular Filt Rate >60 [facility] Comment:Chronic Kidney Disea se: Estimated GFR < 60 mL/min/[id number] Kidney Disease: Estimated GFR < 15 mL/min/1.73m2 Glucose 219(H) 60 - 115 mg/dL [facility] Calcium 9.5 8.4 - 10.2 mg/dL [facility] Blood Venous blood specimen / Unknown 11/19/2024 2:08 PM EDT 11/19/2024 3:53 PM EDT us Aleisha Morillo MD LAB BLOOD ORDERABLES Final Result [facility] [address] [place] [phone] * (ABNORMAL) Hemoglobin A1c (11/19/2024 2:08 PM EDT) Hemoglobin A1c 8.6(H) <6.0 % [facility] Comment:Hemoglobin A1C Refer ence Range Adults: 4.8 - 6.0 % Non diabetic: < 6.0 % Goal: < 7.0 %Additional Action Suggested: > 8.0 %Note: Hemoglobin A1c results are invalid for patients with abnormal amounts of HbF. Blood transfusions may impact the HbA1c concentration in the patient sample. Estimated Average Glucose 200 mg/dL [facility] Comment:eAG = Estimated ave rage glucose which is %A1C expressed asaverage glucose, using the formula of the W2Q-NvsloufYceeoeb Glucose study (ADAG), Diabetes Care, Vol.31,#8,Feb. 2007 Blood Venous blood specimen / Unknown 11/19/2024 2:08 PM EDT 11/19/2024 3:53 PM EDT us Aleisha Morillo MD LAB BLOOD ORDERABLES Final Result [facility] [address] [place] [phone] * (ABNORMAL) Lipid Panel, Standard (11/19/2024 2:08 PM EDT) Triglycerides 202(H) <150 mg/dL [facility] Comment:Desirable Triglyceri de: less than 150 mg/dLBorderline High Triglyceride 150-199 mg/dLHigh Triglyceride: 200-499 mg/dLVery High Triglyceride: greater than or equal to 5OO mg/dL Cholesterol 234(H) <200 mg/dL [facility] Comment:Desirable Cholestero l: less than 200 mg/dLBorderline High Cholesterol: 200-239 mg/dLHigh Cholesterol: greater than 239 mg/dL LDL Cholesterol Calculated 135(H) <100 mg/dL [facility] Comment:Desirable LDL: less than 100 mg/dLNear Optimal/Above Optimal LDL: 110- 129 mg/dLBorderline High LDL: 130-159 mg/dLHigh LDL: 160-189 mg/dLVery High LDL: greater than or equal to 190 mg/dL HDL Cholesterol 59 >40 mg/dL [facility] Comment:Desirable HDL: great er than 40 mg/dL Note: This HDL assay may give artificially low results in patients with liver disease. Blood Venous blood specimen / Unknown 11/19/2024 2:08 PM EDT 11/19/2024 3:53 PM EDT Aleisha Morillo MD LAB BLOOD ORDERABLES Final Result Performing Organization Address [facility]/ZIP Co de Phone Number [facility] [address] [place] [phone] * (ABNORMAL) Hepatic Function Panel (11/19/2024 2:08 PM EDT) Bilirubin, Total 0.3 0.0 - 1.0 mg/dL [facility] Bilirubin, Direct 0.1 0.0 - 0.5 mg/dL [facility] Aspartate Amino Transferase 24 5 - 31 U/L [facility] Alanine Aminotransferase 25 0 - 31 U/L [facility] Total Protein 7.2 6.5 - 8.0 g/dL [facility] Albumin Level 3.8 3.5 - 5.0 g/dL [facility] Alkaline Phosphatase 139(H) 39 - 117 U/L [facility] Blood Venous blood specimen / Unknown 11/19/2024 2:08 PM EDT 11/19/2024 3:53 PM EDT Aleisha Morillo MD LAB BLOOD ORDERABLES Final Result Performing Organization Address [facility] Co de Phone Number [facility] [address] [place] [phone] * (ABNORMAL) Albumin, Random Urine W/Creatinine (11/19/2024 2:08 PM EDT) Creatinine, Urine 236.19 mg/dL [facility] Microalbumin Urine 96.0 mg/L [facility] Microalbum Creatinine Ratio Ur 40.6(H) <30 ug/mg cr [facility] Comment:Albumin/Creatinine R atio Reference Ranges: Normal: < 30 ug/mg creatinine Microalbuminuria: 30 - 300 ug/mg creatinineClinical Albuminuria: > 300 ug/mg creatinine Urine 11/19/2024 2:08 PM EDT 11/19/2024 3:53 PM EDT us Aleisha Morillo MD LAB URINE ORDERABLES Final Result [facility] [address] [place] [phone] * (ABNORMAL) POCT glucose manually resulted (10/29/2024 9:37 AM EDT) Glucose Blood, POC 211(A) 60 - 200 mg/dL [employer] Lot # [id number] Lot# Expiration Date Blood Capillary blood specimen / Unknown 10/29/2024 9:37 AM EDT us Aleisha Morillo MD POINT OF CARE TEST ENTER/E DIT ORDERABLES Final Result * (ABNORMAL) POCT glycosylated hemoglobin (Hgb A1c) (10/29/2024 9:35 AM EDT) Hemoglobin A1C 10.1(A) 4.0 - 6.0 % [employer] Lot # [id number] Lot# Expiration Date Blood Capillary blood specimen / Unknown 10/29/2024 9:35 AM EDT us Aleisha Morillo MD POINT OF CARE TEST ENTER/E DIT ORDERABLES Final Result documented in this encounter Visit Diagnoses Diagnosis Obstructive sleep apnea syndrome- Primary Obstructive sleep apnea (adult) (pediatric) Fibromyalgia Unspecified myalgia and myositis Hx of sepsis 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 (CMS/HCC) Orthostatic hypotension Class 3 severe obesity due to excess calories with serious comorbidity and body mass index (BMI) of 45.0 to 49.9 in adult Dietary counseling Dietary surveillance and counseling Exercise counseling Primary hypertension Unspecified essential hypertension Recurrent major depressive disorder, in partial remission (CMS/HCC) Elevated blood sugar Other abnormal glucose Cervical high risk HPV (human papillomavirus) test positive Cervical high risk human papillomavirus (HPV) DNA test positive Dyslipidemia Other and unspecified hyperlipidemia B12 deficiency Blindness of left eye, unspecified right eye visual impairment category Depressive disorder Depressive disorder, not elsewhere classified Polyp of colon, unspecified part of colon, unspecified type Preventative health care Routine general medical examination at a health care facility Encounter for immunization documented in this encounter Additional Health Concerns Assessment Noted Time PHQ-9 Depression Total Score: 15 024 9:18 AM EDT documented as of this encounter Care Teams Twisting Frame Fixer Relationship Specialty Start Date End Date Aleisha Morillo MD [address] [place] [address] PCP - General Family Medicine 07/30/18 Purvi Sahni, YobanyD [address] [place] [phone] Pharmacist Internal Medicine 10/26/22 Lester Santana [address] [place] [address] Drive [address] [place], [place] Neurosurgery 06/19/24 Chun Felix MD [address] [place] [phone] Psychiatrist Psychiatry 05/07/24 Amalia Hernandez MD [address] Gynecology 06/19/24 [facility] Gastroenterology [address] [place] [address] [phone] Gastroenterology 07/14/24 [facility] [address] [place], [place] [phone] Optometry 10/29/24 documented as of this encounter
--- OUTSIDE RECORDS SUMMARY | 2024-11-19 16:59 | XMS_ITS | Encounter Summary ---
Author Organization [employer] Address [address] [place] [address] Care Team Providers Care Senior Account Representative Name Role Phone Aleisha Morillo MD Primary Care Provider [phone]- [phone] Purvi Sahni PharmD Unavailable [phone] Lester Santana Unavailable Encounter Details Date Type Department Care Team (Late st Contact Info) Description 07/10/2024 Orders Only [facility] [address] [place], [place] [phone] Aleisha Morillo MD [address] [place], [place] [phone] Mood disorder (CMS/HCC) (Primary Dx); Other migraine without status migrainosus, not intractable; Gastroesophageal reflux disease, unspecified whether esophagitis present Social History Tobacco Use Types Packs/Day Years [...] Management [facility] [address] [place] [phone] Purvi aShni PharmD [address] [place] [phone] 02/11/2025 3:15 PM EDT Office Visit [facility] [address] [place] [phone] Aleisha Morillo MD [address] [place] [phone] documented as of this encounter Goals Goal Patient Goal Type Associated Problems Recent Progress Patient-Stated? Author Hemoglobin A1c < 7 Result Component 8.6(11/19/2024 2:08 PM EDT) No Purvi Sahni, PharmD documented as of this encounter Visit Diagnoses Diagnosis Mood disorder ([facility])- Primary Unspecified episodic mood disorder Other migraine without status migrainosus, not intractable Gastroesophageal reflux disease, unspecified whether esophagitis present documented in this encounter Additional Health Concerns Assessment Noted Time PHQ-9 Depression Total Score: 15 024 9:18 AM EDT documented as of this encounter Care Teams Senior Account Representative Relationship Specialty Start Date End Date Aleisha Morillo MD [address] [place] [address] PCP - General Family Medicine 07/30/18 Purvi Sahni PharmD [address] [place] [phone] Pharmacist Internal Medicine 10/26/22 Lester Santana [address] [place] [address] [place], [place] Neurosurgery 06/19/24 Chun Felix MD [address] [place] [phone] Psychiatrist Psychiatry 05/07/24 Amalia Hernandez MD [address] Gynecology 06/19/24 [facility] [place] [facility] Gastroenterology [address] [place] [address] [phone] Gastroenterology 07/14/24 [facility] [address] [place], [place] [phone] Optometry 10/29/24 documented as of this encounter
--- OUTSIDE RECORDS SUMMARY | 2024-11-19 16:59 | XMS_ITS | Encounter Summary ---
Author Organization [employer] Address [address] [place] [address] Care Team Providers Care Data Capture Clerk Name Role Phone Aleisha Morillo MD Primary Care Provider [phone]- [phone] Purvi Sahni PharmD Unavailable Lester Santana Unavailable Encounter Details Date Type Department Care Team (Late st Contact Info) Description 11/19/2024 Telephone [facility] [address] [place], [place] [phone] Purvi Sahni, PharmD [address] [place] [address] Social History Tobacco Use Types Packs/Day Years [...] encounter Miscellaneous Notes * Telephone Encounter - Purvi Sahni PharmD - 11/19/2024 4:25 PM EDT Patient prescribed Mounjaro by PCP 10/29/24 to replace trulicity; please assist with PA completion, thank you! documented in this encounter Plan of Treatment Upcoming Encounters Date Type Department Care Team (Late st Contact Info) Description 12/03/2024 2:30 PM EDT Medication Management [facility] [address] [place] [phone] Purvi Sahni PharmD [address] [place] [phone] 02/11/2025 3:15 PM EDT Office Visit [facility] [address] [place] [phone] Aleisha Morillo MD [address] [place] [phone] documented as of this encounter Goals Goal [...] documented as of this encounter Care Teams Data Capture Clerk Relationship Specialty Start Date End Date Aleisha Morillo MD [address] [place] [address] PCP - General Family Medicine 07/30/18 Purvi Sahni, PharmD [address] [place] [address] Pharmacist Internal Medicine 10/26/22 Lester Santana [address] [place] [address] Drive [address] [place] [address] Neurosurgery 06/19/24 Chun Felix MD [address] [place] [phone] Psychiatrist Psychiatry 05/07/24 Amalia Hernandez MD [address] Gynecology 06/19/24 [facility] Gastroenterology [address] [place] [address] [phone] Gastroenterology 07/14/24 [facility] [address] [place], [place] [phone] Optometry 10/29/24 documented as of this encounter
--- OUTSIDE RECORDS SUMMARY | 2024-11-19 16:59 | XMS_ITS | Clinical Summary ---
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 docusate sodium (Colace) 100 MG capsuleIndication s:Constipation, unspecified constipation type take 1 capsule by oral route 2 times every day as needed as needed for CONSTIPATION 180 capsule 023 Active fluticasone (Flonase) 50 MCG/ACT nasal sprayIndications: Allergic rhinitis, unspecified seasonality, unspecified trigger,Primary hypertension SPRAY 1-2 SPRAYS INTO EACH NOSTRIL IN THE MORNING. SHAKE GENTLY. BEFORE FIRST USE, PRIME PUMP. AFTER USE, CLEAN TIP AND REPLACE CAP. 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 1 each 024 Active Continuous Glucose Sensor (FreeStyle Terrie 2 Sensor) miscIndications:P oorly controlled type 2 diabetes mellitus with neuropathy (CMS/HCC) Use as directed to monitor glucose ever 8 hours. Replace sensor every 14 days. 2 each 024 Active cholecalciferol VITAMIN D (Vitamin D-3) 50 MCG (1999 UT) capsuleIndication s:Vitamin D deficiency Take 1 tab po dialy 90 capsule 3 024 Active cyanocobalamin (Vitamin B-12) 500 MCG tabletIndications :B12 deficiency Take 1 tablet (500 mcg) by mouth Once per day. 90 tablet 2 024 Active metFORMIN (Glucophage) 1000 MG tabletIndications :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) TAKE 1 TABLET BY MOUTH TWICE DAILY 180 tablet 6 024 Active TRUEplus Lancets 33G miscIndications:P oorly controlled type 2 diabetes mellitus with neuropathy (CMS/HCC) Use bid prn dx type 2 diabetes 100 each 3 024 Active atorvastatin (Lipitor) 80 MG tabletIndications :Dyslipidemia TAKE 1 TABLET BY MOUTH EVERY DAY 90 tablet 3 024 Active amitriptyline (Elavil) 25 MG tabletIndications :Other migraine without status migrainosus, not intractable Take 25 mg by mouth at bedtime. Decreased from 100 mg to 25 mg in hospital 07/10/24 due to hypotension Active QUEtiapine (SEROquel) 200 MG tabletIndications :Mood disorder (CMS/HCC) Take 200 mg by mouth at bedtime. Per psych Active clonazePAM (KlonoPIN) 1 MG tabletIndications :Mood disorder (CMS/HCC) Take by mouth 3 times daily. Per psychiatry Active omeprazole (PriLOSEC) [address] capsuleIndication s:Gastroesophagea l reflux disease, unspecified whether esophagitis present TAKE 1 CAPSULE BY MOUTH TWICE A DAY 180 capsule 1 024 Active insulin lispro (HumaLOG KWIKPEN) 100 UNIT/ML injectionIndicati ons: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) Inject 10 units subcutaneous tid before meals 15 mL 024 Active Acetaminophen Extra Strength 500 MG tabletIndications :Osteoarthritis, unspecified osteoarthritis type, unspecified site TAKE 2 TABLETS BY MOUTH EVERY 8 HOURS IF NEEDED FOR PAIN/FEVER 60 tablet 1 025 Active loratadine (Claritin) 10 MG tabletIndications :Seasonal allergies TAKE 1 TABLET BY MOUTH EVERY DAY IF NEEDED 90 tablet 3 025 Active aspirin (Aspirin Low Dose) 81 MG EC tabletIndications :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) TAKE 1 TABLET BY MOUTH EVERY DAY 90 tablet 1 025 Active albuterol (2.5 MG/3ML) 0.083% nebulizer solutionIndicatio ns:Wheeze Take 3 mL (2.5 mg) by nebulization every 4 (four) hours if needed for wheezing. 75 mL 3 025 2025 Active albuterol (Ventolin HFA) 108 (90 Base) MCG/ACT inhalerIndication s:Mild intermittent asthma without complication INHALE DANDO DOS SOPLIDOS CADA CUATRO A SEIS HORAS CUANDO SEA NECESARIO 18 g 1 025 Active insulin glargine (Lantus SoloStar) 100 UNIT/ML penIndications:Po vida controlled type 2 diabetes mellitus with neuropathy (CMS/HCC) INJECT 35 UNIT BY SUBCUTANEOUS ROUTE EVERY EVENING PER INSULIN PROTOCOL 15 mL 1 025 Active citalopram (CeleXA) 10 MG tabletIndications :Recurrent major depressive disorder, in partial remission (CMS/HCC) TOME 1 TABLETA POR V A ORAL TODOS LOS D 025 Active lisinopril 20 MG tabletIndications :Primary hypertension Take 40 mg by mouth. 024 Active amitriptyline (Elavil) 100 MG tabletIndications :Fibromyalgia TOME 1 TABLETA POR V A ORAL TODOS LOS D 025 Active QUEtiapine (SEROquel) 50 MG tabletIndications :Recurrent major depressive disorder, in partial remission (CMS/HCC) Take 50 mg by mouth at bedtime. Active prazosin (Minipress) 1 MG capsuleIndication s:Recurrent major depressive disorder, in partial remission (CMS/HCC) Take 1 mg by mouth at bedtime. Active Dulaglutide 3 MG/0.5ML solution auto-injectorIndi cations: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) Inject 3 mg under the skin 1 (one) time per week. 2 mL Active Tirzepatide (Mounjaro) 2.5 MG/0.5ML solution auto-injectorIndi cations: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) Inject 2.5 mg under the skin 1 (one) time per week. Start 2.5 mg weekly x 4 weeks, then increase to 5 mg weekly x 4 weeks, then 7.5 mg weekly 2 mL 025 2024 Active gabapentin (Neurontin) 400 MG capsuleIndication s:Pain TOME 1 CAPSULA POR VIA ORAL DENG VECES AL JEANNINE 90 capsule Active prazosin (Minipress) 1 MG capsule Take 2 capsules by mouth at bedtime. 024 2024 Discontinued(M ed list cleanup (will not trigger notification to Pharmacy)) QUEtiapine (SEROquel) 50 MG tablet Take 1 tablet by mouth if needed in the morning, at noon, and at bedtime (as needed). 024 2024 Discontinued(M ed list cleanup (will not trigger notification to Pharmacy)) gabapentin (Neurontin) 400 MG capsuleIndication s:Pain TAKE 1 CAPSULE BY MOUTH THREE TIMES A DAY 90 capsule 025 2024 Discontinued Dulaglutide 3 MG/0.5ML solution auto-injectorIndi cations:Elevated blood sugar Inject 3 mg under the skin 1 (one) time per week. 2 mL 025 2024 Discontinued(R eorder (will not trigger notification to Pharmacy)) Active Problems Problem Noted Date Diagnosed Date Dietary counseling 10/29/2024 Exercise counseling 10/29/2024 Hx of sepsis 10/29/2024 Vitamin D deficiency 06/19/2024 Overview (06/19/2024): Lab Results Component Value Date [id number] 40.3 03/27/2024 B12 deficiency 06/19/2024 Overview (10/29/2024): Lab Results Component Value Date VITB12 362 03/27/2024 -continue oral supplementation Assessment & Plan (10/29/2024 9:28 AM EDT): Lab Results Component Value Date VITB12 362 03/27/2024 -continue oral supplementation Orthostatic hypotension 06/19/2024 Overview (07/10/2024): -hx orthostatic hypotension -seen by endocrinology with inpatient for SOB 05/01/24 -ACTH stim test done 04/30/24. Pt responded will with cortisol level at 0 hour 4.8, 30 min 17, and 60 minutes 19.7 -no evidence of adrenal insuffiencey -hospitalized again 06/2024 for severe sepsis with Hypotension, tachycardia/tachypnea/LUCIA/acute lactic acidosis likely due to UTI/with a backdrop of cocaine and alcohol use disorder and polypharmacy, patient admitted to telemetry unit treated with IV fluids, IV antibiotics, all symptoms of sepsis resolved, urine culture grew E coli sensitive to ceftriaxone blood culture showed no growth patient psychiatric medications were adjusted. Discharged home on by mouth Ceftin for 5 more days to finish a 7 day course of antibiotic her dose of amitriptyline has been reduced to 25 mg and dose of prazosin reduced to 2mg and lisinopril has been discontinued. Acute kidney injury with anion gap metabolic acidosis resolved with IV fluids was likely due to hypotension with polypharmacy Mild rhabdomyolysis likely due to cocaine use, treated with IV fluids, and renal function normalized, CK improved to 505. Cocaine /alcohol use disorder seen by Addiction Team outpatient referrals given no acute alcohol withdrawal symptoms noted. Screening mammogram for breast cancer 03/27/2024 Overview (03/27/2024): -Previous mammogram done, 01/24/22 -placed referral on 05/18/23, not done yet. -placed another referral to [facility] for mammogram 03/26/24 Assessment & Plan (03/27/2024 9:27 AM EDT): -Previous mammogram done, 01/24/22 -placed referral on 05/18/23, not done yet. -placed another referral to [facility] for mammogram 03/26/24 Class 3 severe obesity due t o excess calories with serious comorbidity and body mass index (BMI) of 45.0 to 49.9 in adult 03/27/2024 Overview (10/29/2024): Here today for follow-up/weight check. Munjaro 2.5 mg started for diabetes 10/29/24 BMI Readings from Last 3 Encounters: 10/29/24 49.22 kg/m?? 03/27/24 48.31 kg/m?? 07/02/23 47.11 kg/m?? Wt Readings from Last 3 Encounters: 10/29/24 252 lb (114 kg) 03/27/24 239 lb 3.2 oz (109 kg) 07/02/23 237 lb 3.2 oz (108 kg) Dietary Recommendations: Fruits, vegetables, whole grains, protein foods, and fat-free or low-fat dairy products are healthy choices. Eat different types of protein foods in your diet. This can include seafood, lean meats, poultry, beans, peas, lentils, nuts, seeds, soy products, and eggs. Limit foods and beverages higher in added sugars, saturated fat, and sodium. Exercise Recommendations: At least 150 minutes of moderate-intensity physical activity per week, or an equivalent combination of moderate- and vigorous-intensity activity Assessment & Plan (10/29/2024 9:28 AM EDT): Here today for follow-up/weight check. BMI Readings from Last 3 Encounters: 10/29/24 49.22 kg/m?? 03/27/24 48.31 kg/m?? 07/02/23 47.11 kg/m?? Wt Readings from Last 3 Encounters: 10/29/24 252 lb (114 kg) 03/27/24 239 lb 3.2 oz (109 kg) 07/02/23 237 lb 3.2 oz (108 kg) Dietary Recommendations: Fruits, vegetables, whole grains, protein foods, and fat-free or low-fat dairy products are healthy choices. Eat different types of protein foods in your diet. This can include seafood, lean meats, poultry, beans, peas, lentils, nuts, seeds, soy products, and eggs. Limit foods and beverages higher in added sugars, saturated fat, and sodium. Exercise Recommendations: At least 150 minutes of moderate-intensity physical activity per week, or an equivalent combination of moderate- and vigorous-intensity activityHere today for follow-up/weight check. BMI Readings from Last 3 Encounters: 10/29/24 49.22 kg/m?? 03/27/24 48.31 kg/m?? 07/02/23 47.11 kg/m?? Wt Readings from Last 3 Encounters: 10/29/24 252 lb (114 kg) 03/27/24 239 lb 3.2 oz (109 kg) 07/02/23 237 lb 3.2 oz (108 kg) Dietary Recommendations: Fruits, vegetables, whole grains, protein foods, and fat-free or low-fat dairy products are healthy choices. Eat different types of protein foods in your diet. This can include seafood, lean meats, poultry, beans, peas, lentils, nuts, seeds, soy products, and eggs. Limit foods and beverages higher in added sugars, saturated fat, and sodium. Exercise Recommendations: At least 150 minutes of moderate-intensity physical activity per week, or an equivalent combination of moderate- and vigorous-intensity activity Hx of syphilis 01/11/2023 Overview (03/25/2024): - diagnosed in 06/2021. She denies having a partner for years. - had interruption in bicillin shots - per [facility] pt was fully treated Assessment & Plan (05/18/2023 10:24 AM EDT): - diagnosed in 06/2021. She denies having a partner for years. - had interruption in bicillin shots -will contact [facility] to make sure pt was fully treated Assessment & Plan (01/11/2023 8:49 AM EDT): - diagnosed in 06/2021. She denies having a partner for years. - had interruption in bicillin shots -will contact [facility] to make sure pt was fully treated Preventative health care 01/10/2023 Overview (03/27/2024): -next physical exam due after 03/26/25 -eye care Followed by Dr Vásquez (seen 2014), and [facility] (seen 2018, referral placed 12/2022). 03/26/24 -gave phone number to call for [facility] -dental -health care proxy given and filed 03/27/24 Assessment & Plan (10/29/2024 9:29 AM EDT): -next physical exam due after 03/26/25 -eye care Followed by Dr Vásquez (seen 2015), and [facility] (seen 2019, referral placed 12/2022). 03/26/24 -gave phone number to call for [facility] -dental -health care proxy given and filed 03/27/24 Assessment & Plan (03/27/2024 9:43 AM EDT): -next physical exam due after 01/2023 -eye care Followed by Dr Vásquez (seen 2015), and [facility] (seen 2019, referral placed 12/2022). 03/26/24 -gave phone number to call for [facility] -dental -health care proxy given and filed 03/27/24 Assessment & Plan (05/18/2023 10:24 AM EDT): -next physical exam due after 01/2023 -Eye: Followed by Dr Vásquez (seen 2015), and [facility] (seen 2019, referral placed 12/2022) Carpal tunnel syndrome 10/04/2022 Overview (03/25/2024): - h/o b/l surgery Assessment & Plan (03/27/2024 9:38 AM EDT): - h/o b/l surgery Assessment & Plan (05/18/2023 9:59 AM EDT): b/l surgery Assessment & Plan (01/09/2023 5:08 PM EDT): b/l surgery Cervical high risk HPV (human papillomavirus) te st positive 10/04/2022 Overview (10/29/2024): -PAP on 05/2019 was NILM, positive HPV E6-E7. -Repeat co-testing done on 04/28/22 NILM, HPV positive -Pap done 05/18/2023 HPV positive, referred to [facility] 05/28/2023 -pap 01/21/24 [facility] NILM, HPV positive -colpo 12/2023 [facility] squamous muscoa without change , choric cervicitis, squamous atypia (squamous atypia is minute and is tangentially orientated precluding optimal evaluation -number for [facility] given 10/29/24 Assessment & Plan (10/29/2024 9:40 AM EDT): -PAP on 05/2019 was NILM, positive HPV E6-E7. -Repeat co-testing done on 04/28/22 NILM, HPV positive -Pap done 05/18/2023 HPV positive, referred to [facility] 05/28/2023 -pap 01/21/24 [facility] NILM, HPV positive -colpo 12/2023 [facility] squamous muscoa without change , choric cervicitis, squamous atypia (squamous atypia is minute and is tangentially orientated precluding optimal evaluation -number for [facility] given 10/29/24 Assessment & Plan (03/27/2024 9:43 AM EDT): -PAP on 05/2019 was NILM, positive HPV E6-E7. -Repeat co-testing done on 04/28/22 NILM, HPV positive -Pap done 05/18/2023 HPV positive, referred to [facility] 05/28/2023 -Pt reports having gone to [facility] for PAP 2 months ago, will request records 03/26/24 Assessment & Plan (05/18/2023 11:46 AM EDT): -PAP on 05/2019 was NILM, positive HPV E6-E7. -Repeat co-testing done on 04/28/22 NILM, HPV positive. -Referral to [facility] done 01/10/2023 -Pap done 05/18/2023 Assessment & Plan (01/11/2023 8:34 AM EDT): -PAP on 05/2019 was NILM, positive HPV E6-E7. -Repeat co-testing done on 04/28/22 NILM, HPV positive. -Referral to [facility] done 01/10/2023 Depressive disorder 10/04/2022 Overview (03/25/2024): -on multiple psychiatric medications -continue with therapist and psychiatrist -denies suicidial or homacidial ideation Assessment & Plan (10/29/2024 9:29 AM EDT): -on multiple psychiatric medications -continue with therapist and psychiatrist -denies suicidial or homacidial ideation Assessment & Plan (03/27/2024 9:44 AM EDT): -on multiple psychiatric medications -continue with therapist and psychiatrist -denies suicidial or homacidial ideation Assessment & Plan (05/18/2023 10:01 AM EDT): - on multiple psychiatric medications -continue with therapist and psychiatrist Assessment & Plan (01/11/2023 8:46 AM EDT): - on multiple psychiatric medications -continue with therapist and psychiatrist Assessment & Plan (10/05/2022 10:55 AM EST): Pt is on multiple psychiatric medications. Continue with therapist and psychiatrist Fibromyalgia 10/04/2022 Overview (10/29/2024): -pain likely multifactorial, chronic and difficult to [...] or addicting medications -declines pain group 10/29/24 Assessment & Plan (10/29/2024 9:40 AM EDT): -pain likely multifactorial, chronic and difficult to [...] or addicting medications -declines pain group 10/29/24 Assessment & Plan (05/18/2023 10:02 AM EDT): -pain likely multifactorial, chronic and difficult to [...] by rheumatology -avoid sedating or addicting medications Assessment & Plan (01/11/2023 8:36 AM EDT): -pain likely multifactorial, chronic and difficult to [...] by rheumatology -avoid sedating or addicting medications Assessment & Plan (10/05/2022 10:56 AM EST): Hx fibromyalgia, morbid obesity, depression, chronic headaches, arthralgias of the weight bearing joints and chronic back and neck pain presents with exacerbation of pain including knees and back since [facility] 09/13/12. In the past she was followed by rheumatology (last seen [address] Mccurdy who is no longer in the area) and diagnosed with cervical and lumbar sonolysis, fibromyalgia, vit D deficiency, and osteoarthritis of the knees. PT could not tolerate MRI in the past due to body habitus. X ray of C-spine 2011 unremarkable. PT has had multiple x ryas of ankles and feet in the past with no significant findings. As we discussed at last visit, pt is not appropriate for short acting narcotics. She agreed to trial of MS Contin. She reports this did not work and wanted percocet. I have declined to write this. Her pain is multifactorial, chronic and difficult to control. -followed by rheumatology -avoid sedating or addicting medications. Obstructive sleep apnea syndrome 10/04/2022 Overview (01/11/2023): -sleep study form [facility] 11/20/2018 ordered by rn advanced Dr. Mcmillan revealed obstructive sleep apnea, mild REM dominant and mild hypoventilation recommending auto-CPAP 8-16 cm of H2O with heated humidifier and if unable to tolerate auto BI-PAP with min EPAP 8 max IPAP 18PS 6 could be tried Assessment & Plan (10/29/2024 9:26 AM EDT): -sleep study form [facility] 11/20/2018 ordered by rn advanced Dr. Mcmillan revealed obstructive sleep apnea, mild REM dominant and mild hypoventilation recommending auto-CPAP 8-16 cm of H2O with heated humidifier and if unable to tolerate auto BI-PAP with min EPAP 8 max IPAP 18PS 6 could be tried Assessment & Plan (05/18/2023 10:19 AM EDT): -sleep study form [facility] 11/20/2018 ordered by rn advanced Dr. Mcmillan revealed obstructive sleep apnea, mild REM dominant and mild hypoventilation recommending auto-CPAP 8-16 cm of H2O with heated humidifier and if unable to tolerate auto BI-PAP with min EPAP 8 max IPAP 18PS 6 could be tried Assessment & Plan (01/11/2023 8:45 AM EDT): -sleep study form [facility] 11/20/2018 ordered by rn advanced Dr. Mcmillan revealed obstructive sleep apnea, mild REM dominant and mild hypoventilation recommending auto-CPAP 8-16 cm of H2O with heated humidifier and if unable to tolerate auto BI-PAP with min EPAP 8 max IPAP 18PS 6 could be tried Osteoarthritis 10/04/2022 Urinary incontinence 10/04/2022 Overview (01/11/2023): -pt needs diapers, pads and wipes DME Assessment & Plan (05/18/2023 10:24 AM EDT): -pt needs diapers, pads and wipes DME Assessment & Plan (01/11/2023 8:49 AM EDT): -pt needs diapers, pads and wipes DME Assessment & Plan (10/05/2022 1:52 PM EST): In addition to diapers, pads and wipes requested. 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 Last visit with [facility] was 2018. -Referral placed again 01/10/2023. 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 Last visit with Ne was 2018. -Referral placed again 01/10/2023. 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 Mild memory disturbance 02/10/2022 Assessment & Plan (05/18/2023 10:02 AM EDT): -Likely multifactorial. She has been reporting this for years. TSH and B12 were nml. Possibly due to psychiatric medications such Ambien or benzodiazepine. This is always her main concern. Referred to neurology in the past. Assessment & Plan (01/11/2023 8:47 AM EDT): -Likely multifactorial. She has been reporting this for years. TSH and B12 were nml. Possibly due to psychiatric medications such Ambien or benzodiazepine. This is always her main concern. Referred to neurology in the past. Assessment & Plan (10/05/2022 10:56 AM EST): Likely multifactorial. She has been reporting this for years. TSH and B12 were nml. Possibly due to psychiatric medications such Ambien or benzodiazepine. This is always her main concern. Will refer her to neurology for second opinion. Polyp of colon 02/10/2022 Overview (10/29/2024): -overdue due for her 1 year colonoscopy repeat with Dr. Deluca. -colonoscopy 01/23/2019 recommending repeat in 1 yr. She is over due. Re-referred 02/03/2022 -she was given the number 01/10/2023 and referred again -referred again to [facility] for colonoscopy 03/26/23 [facility] scheduled -number given to call 10/29/24 Assessment & Plan (10/29/2024 9:41 AM EDT): -overdue due for her 1 year colonoscopy repeat with Dr. Deluca. -colonoscopy 01/23/2019 recommending repeat in 1 yr. She is over due. Re-referred 02/03/2022 -she was given the number 01/10/2023 and referred again -referred again to [facility] for colonoscopy 03/26/23 -televisit with HANY Yeager [facility] 07/11/24, colonoscopy scheduled -number given to call 10/29/24 Assessment & Plan (03/27/2024 9:41 AM EDT): -overdue due for her 1 year colonoscopy repeat with Dr. Deluca. -colonoscopy 01/23/2019 recommending repeat in 1 yr. She is over due. Re-referred 02/03/2022 -she was given the number 01/10/2023 and referred again -referred again to [facility] for colonoscopy 03/26/23 Assessment & Plan (05/18/2023 10:22 AM EDT): -overdue due for her 1 year colonoscopy repeat with Dr. Deluca. -colonoscopy 01/23/2019 recommending repeat in 1 yr. She is over due. Re-referred 02/03/2022. -She was given the number 01/10/2023 and referred again Assessment & Plan (01/11/2023 8:48 AM EDT): -overdue due for her 1 year colonoscopy repeat with Dr. Deluca. -colonoscopy 01/23/2019 recommending repeat in 1 yr. She is over due. Re-referred 02/03/2022. -She was given the number 01/10/2023 and referred again Assessment & Plan (10/05/2022 10:55 AM EST): Pt is due for her 1 year colonoscopy repeat with Dr. Deluca. Colonoscopy 01/23/2019 recommending repeat in 1 yr. She is over due. Re-referred 02/03/2022. Primary tethered cord syndrome 02/10/2022 Overview (06/19/2024): -hx chronic back pain that is worsening summer. MRI ordered due to report of leg weakness and multiple falls, and intermittent leg numbness. No saddle paresthesia. PT has bladder incontinence at baseline. No fevers. No h/o IVD. These [...] mg 02/2023 -seen by neurosurgeon, Dr. Lester Santnaa MD 05/28/23 for worsening symptoms surgery scheduled with repeat MRI prior Assessment & Plan (10/29/2024 9:27 AM EDT): -hx chronic back pain that is worsening summer. MRI ordered due to report of leg weakness and multiple falls, and intermittent leg numbness. No saddle paresthesia. PT has bladder incontinence at baseline. No fevers. No h/o IVD. These [...] symptoms surgery scheduled with repeat MRI prior Assessment & Plan (03/27/2024 9:40 AM EDT): -hxchronic back pain that is worsening summer . MRI ordered due to report of leg weakness and multiple falls, and intermittent leg numbness. No saddle paresthesia. PT has bladder incontinence at baseline. No fevers. No h/o IVD. These symptoms and been intermittent. She continues to report daily headaches. 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 Chord tethering is suggested. She did not follow through with neurosurgery appointment. 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 - Saw neurosurgery 06/08/21, surgery was recommended but weight loss first. Needs to be closer to 200 lbs. referred to nutrition and weight management in past -Pt reports having lost 30lbs, is now at 239lbs. -referred back to Neurosurgery 03/26/23 for reevaluation. -increased Gabapentin to 500 mg. Assessment & Plan (05/18/2023 10:23 AM EDT): -hxchronic back pain that is worsening summer . MRI ordered due to report of leg weakness and multiple falls, and intermittent leg numbness. No saddle paresthesia. PT has bladder incontinence at baseline. No fevers. No h/o IVD. These symptoms and been intermittent. She continues to report daily headaches. 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 Chord tethering is suggested. She did not follow through with neurosurgery appointment. 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 - Saw neurosurgery 06/08/21, surgery was recommended but weight loss first. Needs to be closer to 200 lbs. referred to nutrition and weight management in past Assessment & Plan (01/11/2023 8:46 AM EDT): -hxchronic back pain that is worsening summer . MRI ordered due to report of leg weakness and multiple falls, and intermittent leg numbness. No saddle paresthesia. PT has bladder incontinence at baseline. No fevers. No h/o IVD. These symptoms and been intermittent. She continues to report daily headaches. 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 Chord tethering is suggested. She did not follow through with neurosurgery appointment. 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 - Saw neurosurgery 06/08/21, surgery was recommended but weight loss first. Needs to be closer to 200 lbs. referred to nutrition and weight management in the past Assessment & Plan (10/05/2022 10:52 AM EST): Hx chronic back pain that is worsening summer . MRI ordered due to report of leg weakness and multiple falls, and intermittent leg numbness. No saddle paresthesia. PT has bladder incontinence at baseline. No fevers. No h/o IVD. These symptoms and been intermittent. She continues to report daily headaches. 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 Chord tethering is suggested. She did not follow through with neurosurgery appointment. 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 - Saw neurosurgery 06/08/21, surgery was recommended but weight loss first. Needs to be closer to 200 lbs. referred to nutrition. 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 Last visit with [facility] was 2018 -referral placed again 01/10/2023 -gave pt the phone number for [facility] to get established. 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 Last visit with [facility] was 2019 -referral placed again 01/10/2023 -gave pt the phone number for [facility] to get established. 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 -she reports she was seen recently, will request note. Hypertension 12/04/2013 Overview (10/29/2024): -blood pressure is at goal on lisinopril -continue lifestyle modifications Assessment & Plan (10/29/2024 9:26 AM EDT): -blood pressure is at goal on lisinopril -continue lifestyle modifications Assessment & Plan (03/27/2024 9:39 AM EDT): -blood pressure is at goal -continue lifestyle modifications Assessment & Plan (05/18/2023 10:02 AM EDT): -blood pressure is at goal -continue lifestyle modifications -continue lisinopril to 40 mg daily Assessment & Plan (01/11/2023 8:37 AM EDT): -blood pressure is at goal -continue lifestyle modifications -continue lisinopril to 40 mg daily Assessment & Plan (10/05/2022 10:54 AM EST): Continue lisinopril to 40 mg daily sodium restriction Diabetic polyneuropathy 07/15/2012 Assessment & Plan (10/05/2022 1:53 PM EST): Not controlled. A1c 9.6%. Refer to [facility] 10/05/22 Dyslipidemia 07/15/2012 Overview (11/19/2024): Lab Results Component Value Date CHOL 234 (H) 11/19/2024 CHOL 170 03/27/2024 CHOL 248 02/08/2023 TRIG 202 (H) 11/19/2024 TRIG 159 (H) 03/27/2024 TRIG 99 02/08/2023 HDL 59 11/19/2024 HDL 64 03/27/2024 HDL 59 02/08/2023 LDLCHOLCAL 135 (H) 11/19/2024 LDLCHOLCAL 75 03/27/2024 LDLCHOLCAL 170 02/08/2023 -continue lifestyle modification -continue atorvastatin increased to 80mg started 01/2023 Assessment & Plan (10/29/2024 9:25 AM EDT): Lab Results Component Value Date CHOL 170 03/27/2024 CHOL 248 02/08/2023 TRIG 159 (H) 03/27/2024 TRIG 99 02/08/2023 HDL 64 03/27/2024 HDL 59 02/08/2023 LDLCHOLCAL 75 03/27/2024 LDLCHOLCAL 170 02/08/2023 -continue lifestyle modification -continue atorvastatin increased to 80mg started 01/2023 Assessment & Plan (03/27/2024 9:44 AM EDT): Lab Results Component Value Date CHOL 248 02/08/2023 TRIG 99 02/08/2023 HDL 59 02/08/2023 LDLCHOLCAL 170 02/08/2023 -continue lifestyle modification -continue atorvastatin increased to 80mg 01/2023, recheck flp Assessment & Plan (05/18/2023 10:02 AM EDT): -check FLP -continue atorvastatin 40mg Assessment & Plan (01/11/2023 8:30 AM EDT): -check FLP -continue atorvastatin 40mg Insomnia 07/15/2012 Steatosis of liver 07/15/2012 Overview (03/25/2024): Lab Results Component Value Date AST 18 02/08/2023 ALT 19 02/08/2023 ALP 154 (H) 02/08/2023 DIRECTBILIRU 0.1 02/08/2023 Assessment & Plan (03/27/2024 9:40 AM EDT): Lab Results Component Value Date AST 18 02/08/2023 ALT 19 02/08/2023 ALP 154 (H) 02/08/2023 DIRECTBILIRU 0.1 02/08/2023 Poorly controlled type 2 diabetes mellitus with neuropathy 07/15/2012 Overview (11/19/2024): Diabetes is much worse today. Referral to Collaborative Drug Therapy Managment Program with our PharmD, ROSA. 10/29/24. Lab Results Component Value Date HGBA1C 8.6 (H) 11/19/2024 HGBA1C 10.1 (A) 10/29/2024 HGBA1C 8.2 (H) 03/27/2024 Lab Results Component Value Date CREATININE 0.84 11/19/2024 EGFR >60 11/19/2024 MICROALBCREU 40.6 (H) 11/19/2024 MICROALBCREU 7.3 03/27/2024 LDLCHOLCAL 135 (H) 11/19/2024 -Arnoldo/Arb: Lisinopril 40mg -Statin therapy: Atorvastatin 80mg -Diabetic eye exam: Followed by DR. Munguia and [facility]. Getting established at [facility]. -Diabetic foot exam: Done 03/26/24 -Continue lifestyle modifications -Continue current medications -start Munjaro 2.5mg weekly and titrate as tolerated. Once filled will discontinue Trulicity 10/29/24 Assessment & Plan (10/29/2024 12:54 PM EDT): Diabetes is much worse today. Referral to [...] eye exam: Followed by DR. Munguia and [facility]. Getting established at [facility]. -Diabetic foot exam: Done 03/26/24 -Continue lifestyle modifications -Continue current medications -start Munjaro 2.5mg weekly and titrate as tolerated. Once filled will discontinue Trulicity 10/29/24 Assessment & Plan (03/27/2024 9:46 AM EDT): Diabetes is controlled. Lab Results Component Value Date HGBA1C 7.5 (A) 05/18/2023 HGBA1C 8.9 (A) 01/10/2023 HGBA1C 9.6 (A) 10/05/2022 Lab Results Component Value Date CREATININE 0.77 02/08/2023 EGFR >60 02/08/2023 LDLCHOLCAL 170 02/08/2023 -Arnoldo/Arb: Lisinopril 40mg -Statin therapy: Atorvastatin 80mg -Diabetic eye exam: Followed by DR. Munguia and [facility]. Getting established at [facility]. -Diabetic foot exam: Done 03/26/24 -Continue lifestyle modifications -Continue current medications Assessment & Plan (01/10/2023 2:32 PM EDT): Diabetes is controlled. - Lab Results Component Value Date HGBA1C 9.6 (A) 10/05/2022 - Lab Results Component Value Date CREATININE 0.85 07/12/2021 -Changes: -Arnoldo/Arb: Lisinopril 40mg -Statin therapy: Atorvastatin 40mg -Diabetic eye exam: Followed by DR. Munguia and [facility]. -Diabetic foot exam: Done 01/10/2023. -Continue lifestyle modifications -Continue current medications Resolved Problems Problem Noted Date Diagnosed Date Resolved Date Dysmenorrhea 10/04/2022 01/11/2023 Overview (01/10/2023): Resolved. 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 Severe obesity 07/15/2012 06/19/2024 Encounters Date Type Department Care Team Description 11/19/2024 2:30 PM EDT Clinical Support [address] [id number] Purvi Sahni, PharmD 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) (Primary Dx) 11/19/2024 Telephone [facility] [address] [place] [phone] Purvi Sahni, PharmD 11/19/2024 Travel 11/12/2024 Telephone [facility] [address] [place] [phone] Aleisha Morillo MD Appointment Request 11/05/[address] [address] Shavonne Gongora ANP Pain 10/29/2024 9:00 AM EDT Office Visit [address] [address] Aleisha Morillo MD Obstructive sleep apnea syndrome (Primary Dx); Fibromyalgia; [...] type; Preventative health care; Encounter for immunization 10/29/2024 Travel 10/20/2024 Refill [facility] [address] [place] [address] Shavonne Gongora ANP Elevated blood sugar; Pain 10/15/2024 Telephone [facility] [address] [place] [address] Magali Lorenzo DDS rs no show visit 10/13/2024 Telephone [facility] [address] [place] [address] Aleisha Morillo MD Hospital Follow-up 10/13/2024 Refill [facility] [address] [place] [address] Aleisha Morillo MD Pain; Elevated blood sugar; Mild intermittent asthma without complication; Poorly controlled type 2 diabetes mellitus with neuropathy ([facility]) 10/10/2024 Refill [facility] [address] [place] [address] Aleisha Morillo MD Wheeze 10/10/2024 Population Health Risk Score [facility] () Department [address] [place] [phone] Provider, Population Health Generic 09/11/2024 Refill [facility] [address] [place] [address] Aleisha Morillo MD Poorly controlled type 2 diabetes mellitus with neuropathy ([facility]/HCC) 08/21/2024 Refill [facility] [address] [place] [address] Aleisha Morillo MD Pain; Seasonal allergies from Last 3 Months Immunizations Name Administration Dates Next Due Hep A, Adult 03/27/2024,05/18/2023 Hep B, adult 05/30/2019,09/26/2018,11/26/2017 Influenza Injectable Quadriv alant Preservative Free IIV4 MDCK 04/06/2017 Influenza injectable quadriv alent IIV4 with preservative 05/30/2018,04/21/2016,05/27/2015 Influenza injectable quadriv alent preservative free 05/18/2023,09/06/2021,05/30/2019 Influenza, IIV3, injectable 04/20/2024,1 ,05/04/2011,04/25 Influenza, Split (incl. janene fied surface antigen) 05/01/2013 Influenza, seasonal, injecta ble, preservative free 04/20/2024 Moderna Covid-19 Vaccine 12+ 09/14/2021,12/07/19 21,10/14/2020 Pfizer Covid-19 Vaccine 12+ 10/29/2024 Pneumococcal Conjugate PCV 13 11/26/2017 Pneumococcal Conjugate PCV 20 10/29/2024 Pneumococcal Polysaccharide PPSV23 02/13/2007 Tdap 05/27/2023,04/21/2016 Family History Medical History Relation Name Comments Diabetes Father Diabetes Mother Diabetes Sister Relation Name Status Comments Father Mother Sister Social History Tobacco Use Types Packs/Day Years Used Date Smoking Tobacco: Never Smokeless Tobacco: Never Tobacco Cessation:Counseling Given: Not Answered Depression Answer Date Recorded Patient Health Questionnaire-9 [...] not to disclose 2021 10:18 AM EDT Last Filed Vital Signs Vital Sign Reading Time Taken Comments Blood Pressure 98/68 11/19/2024 3:04 PM EDT Pulse 97 11/19/2024 3:04 PM EDT Temperature 35.2 ??C (95.3 ??F) 10/29/2024 9:16 AM ED T Respiratory Rate 20 10/29/2024 9:16 AM EDT Oxygen Saturation 98% 10/29/2024 9:16 AM EDT Inhaled Oxygen Concentration - - Weight 114 kg (252 lb) 10/29/2024 9:16 AM EDT Height 152.4 cm (5') 10/29/2024 9:16 AM EDT Body Mass Index 49.22 10/29/2024 9:16 AM EDT Plan of Treatment Upcoming Encounters Date Type Department Care Team (Late st Contact Info) Description 12/03/2024 2:30 PM EDT Medication Management [facility] [address] [place] [phone] Purvi Sahni, PharmD [address] [place] [phone] 02/11/2025 3:15 PM EDT Office Visit [facility] [address] [place] [phone] Aleisha Morillo MD [address] [place] [phone] Health Maintenance Due Date Last Done Comments CT Colonography 1968 FIT DNA/Cologuard 1968 FIT 1968 FOBT 1968 Sigmoidoscopy 1968 Eye Exam 1978 Dental X-Ray: Full Mouth 01/15/2017 01/14/2014 Dental Prophylaxis 02/13/2017 08/15/2016, 0 02/09/2016, 04/15/2015, Additional history exists Zoster Vaccines (1 of 2) 2018 Dental Oral Exam 06/08/2019 12/05/2018, 06/2016, 05/27/2015, Additional history exists Mammogram 02/12/2023 08/15/2022, 04/01, 01/24/2022, Additional history exists Dental X-Ray: Bitewings 02/17/2023 02/17/20 22, 12/05/2018, 02/08/2016, Additional history exists Colonoscopy 01/14/2024 01/13/2019 Colorectal Cancer Screening 01/14/2024 Diabetes: Hemoglobin A1C 02/18/2025 025, 10/29/2024, 03/27/2024, Additional history exists Depression Screening 03/27/2025 03/27/2024, 03/27/20 24 Diabetes: Foot Exam 03/27/2025 03/27/2024, 03/27/2024, 03/27/2024, Additional history exists SDOH Screening 05/02/2025 05/02/2024 Alcohol/Substance Use Screening 10/29/2025 10/29/2024 Tobacco Screening 10/29/2025 10/29/2024 Diabetes: Urine Protein Screening 11/19/2025 11/19/2024, 03/27/2024 Lipid Panel 11/19/2025 11/19/2024, 02/28, 02/08/2023, Additional history exists Pap Smear 01/16/2027 01/17/2024, 04/30, 04/28/2022, Additional history exists Cervical Cancer Screening 01/16/2029 HPV/Cotest 01/16/2029 01/17/2024, 04/30, 04/28/2022, Additional history exists DTaP/Tdap/Td Vaccines (3 - Td or Tdap) 05/27/2033 05/27/2023, 04/21/2016 RSV Patients and Patients Aged 60 years or older (1 - 1-dose 75+ series) 2043 Hepatitis B Vaccines Completed 05/30/2019, 09/26/2018, 11/26/2017 HIV Screening Completed 02/08/2023 Colposcopy Completed 01/17/2024 Hepatitis A Vaccines Completed 03/27/2024, 05/18/20 Hepatitis C Screening Completed 03/27/2024, 023 Influenza Vaccine Completed 04/20/2024, , 05/18/2023, Additional history exists COVID-19 Vaccine Completed 10/29/2024, , 12/06/2020, Additional history exists Pneumococcal Vaccine: 50+ Years Completed 10/29/2024, 11/26/2017, 02/13/2007 HIB Vaccines Aged Out No longer eligi ble based on patient's age to complete this topic HPV Vaccines Aged Out No longer eligi ble based on patient's age to complete this topic IPV Vaccines Aged Out No longer eligi ble based on patient's age to complete this topic Meningococcal Vaccine Aged Out No nishant loly eligible based on patient's age to complete this topic RSV under 20 months Aged Out No longe r eligible based on patient's age to complete this topic Rotavirus Vaccines Aged Out No longer eligible based on patient's age to complete this topic Goals Goal Patient Goal Type Associated Problems Recent Progress Patient-Stated? Author Hemoglobin A1c < 7 Result Component 8.6(11/19/2024 2:08 PM EDT) Purvi Atkinson PharmD Procedures Procedure Name Priority Date/Time Associated Diagnosis Comments BASIC METABOLIC PANEL Routine 11/19/2024 2:08 PM EDT 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) HEMOGLOBIN A1C Routine 11/19/2024 2:08 PM EDT 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) LIPID PANEL, STANDARD Routine 11/19/2024 2:08 PM EDT 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) HEPATIC FUNCTION PANEL Routine 2:08 PM EDT 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) ALBUMIN, RANDOM URINE W/CREATININE Routine 11/19/2024 2:08 PM EDT 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) POCT GLUCOSE Routine 10/29/2024 9:37 AM EDT 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) POCT GLYCOSYLATED HEMOGLOBIN (HGB A1C) Routine 10/29/2024 9:35 AM EDT 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) HEPATITIS PANEL, GENERAL Routine 03/27/2024 8:56 AM EDT Transaminitis HM PAP/HPV Routine 01/17/2024 COLPOSCOPY Routine 01/17/2024 HIV ANTIBODY/ANTIGEN ([place] DPH) Routine 02/08/2023 2:39 PM EDT BI MAMMOGRAM DIAGNOSTIC TOMOSYNTHESIS RIGHT Routine 08/15/2022 2:35 PM EST BITEWING - SINGLE RADIOGRAPHIC IMAGE Routine 02/16/2022 12:00 AM EDT HM COLONOSCOPY Routine 01/13/2019 PERIODIC ORAL EVALUATION - ESTABLISHED PATIENT Routine 12/05/2018 12:00 AM EDT PROPHYLAXIS - ADULT Routine 08/15/2016 1 2:00 AM EST INTRAORAL - COMPLETE SERIES OF RADIOGRAPHIC IMAGES Routine 01/14/2014 12:00 AM EDT from Last 3 Months or Most Recently Relevant to Health Maintenance Results * (ABNORMAL) Albumin, Random Urine W/Creatinine (11/19/2024 2:08 PM EDT) Creatinine, Urine 236.19 mg/dL [facility] Microalbumin Urine 96.0 mg/L [facility] Microalbum Creatinine Ratio Ur 40.6(H) <30 ug/mg cr [facility] Comment:Albumin/Creatinine R atio Reference Ranges: Normal: < 30 ug/mg creatinine Microalbuminuria: 30 - 300 ug/mg creatinineClinical Albuminuria: > 300 ug/mg creatinine Urine 11/19/2024 2:08 PM EDT 11/19/2024 3:53 PM EDT Aleisha Morillo MD LAB URINE ORDERABLES Final Result Performing Organization Address [facility] Co de Phone Number [facility] [address] [place] [phone] * (ABNORMAL) Hemoglobin A1c (11/19/2024 2:08 PM EDT) Hemoglobin A1c 8.6(H) <6.0 % [facility] Comment:Hemoglobin A1C Refer ence Range Adults: 4.8 - 6.0 % Non diabetic: < 6.0 % Goal: < 7.0 %Additional Action Suggested: > 8.0 %Note: Hemoglobin A1c results are invalid for patients with abnormal amounts of HbF. Blood transfusions may impact the HbA1c concentration in the patient sample. Estimated Average Glucose 200 mg/dL [facility] Comment:eAG = Estimated ave rage glucose which is %A1C expressed asaverage glucose, using the formula of the [id number] Glucose study (ADAG), Diabetes Care, Vol.31,#8,Feb. 2007 Blood Venous blood specimen / Unknown 11/19/2024 2:08 PM EDT 11/19/2024 3:53 PM EDT Aleisha Morillo MD LAB BLOOD ORDERABLES Final Result Performing Organization Address [facility] Co de Phone Number [facility] [address] [place] [phone] * (ABNORMAL) Hepatic Function Panel (11/19/2024 2:08 PM EDT) Bilirubin, Total 0.3 0.0 - 1.0 mg/dL [facility] Bilirubin, Direct 0.1 0.0 - 0.5 mg/dL [facility] Aspartate Amino Transferase 24 5 - 31 U/L [facility] Alanine Aminotransferase 25 0 - 31 U/L [facility] Total Protein 7.2 6.5 - 8.0 g/dL [facility] Albumin Level 3.8 3.5 - 5.0 g/dL [facility] Alkaline Phosphatase 139(H) 39 - 117 U/L [facility] Blood Venous blood specimen / Unknown 11/19/2024 2:08 PM EDT 11/19/2024 3:53 PM EDT Aleisha Morillo MD LAB BLOOD ORDERABLES Final Result Performing Organization Address [facility] de Phone Number [facility] [address] [place] [phone] * (ABNORMAL) Lipid Panel, Standard (11/19/2024 2:08 PM EDT) Triglycerides 202(H) <150 mg/dL [facility] Comment:Desirable Triglyceri de: less than 150 mg/dLBorderline High Triglyceride 150-199 mg/dLHigh Triglyceride: 200-499 mg/dLVery High Triglyceride: greater than or equal to 5OO mg/dL Cholesterol 234(H) <200 mg/dL [facility] Comment:Desirable Cholestero l: less than 200 mg/dLBorderline High Cholesterol: 200-239 mg/dLHigh Cholesterol: greater than 239 mg/dL LDL Cholesterol Calculated 135(H) <100 mg/dL [facility] Comment:Desirable LDL: less than 100 mg/dLNear Optimal/Above Optimal LDL: 110- 129 mg/dLBorderline High LDL: 130-159 mg/dLHigh LDL: 160-189 mg/dLVery High LDL: greater than or equal to 190 mg/dL HDL Cholesterol 59 >40 mg/dL [facility] Comment:Desirable HDL: great er than 40 mg/dL Note: This HDL assay may give artificially low results in patients with liver disease. Blood Venous blood specimen / Unknown 11/19/2024 2:08 PM EDT 11/19/2024 3:53 PM EDT Aleisha Morillo MD LAB BLOOD ORDERABLES Final Result Performing Organization Address [facility] Co de Phone Number [facility] [address] [place] [address] [phone] * (ABNORMAL) Basic Metabolic Panel (11/19/2024 2:08 PM EDT) [facility] Sodium 140 135 - 145 mmol/L [facility] Potassium 4.6 3.3 - 5.1 mmol/L [facility] Chloride 106 96 - 108 mmol/L [facility] Carbon Dioxide 24 22 - 29 mmol/L [facility] Anion Gap 15 12 - 20 [facility] Urea Nitrogen (BUN) 31(H) 9 - 16 mg/dL [facility] Creatinine, Serum 0.84 0.5 - 1.4 mg/dL [facility] Estimated Glomerular Filt Rate >60 [facility] Comment:Chronic Kidney Disea se: Estimated GFR < 60 mL/min/1.22m6Lcffhv Kidney Disease: Estimated GFR < 15 mL/min/1.73m2 Glucose 219(H) 60 - 115 mg/dL [facility] Calcium 9.5 8.4 - 10.2 mg/dL [facility] Blood Venous blood specimen / Unknown 11/19/2024 2:08 PM EDT 11/19/2024 3:53 PM EDT Aleisha Morillo MD LAB BLOOD ORDERABLES Final Result [facility] [address] [place] [phone] * (ABNORMAL) POCT glucose manually resulted (10/29/2024 9:37 AM EDT) Pathologist [facility] Glucose Blood, POC 211(A) 60 - 200 mg/dL QC Media Lot # [id number] Lot# Expiration Date Blood Capillary blood specimen / Unknown 10/29/2024 9:37 AM EDT Aleisha Morillo MD POINT OF CARE TEST ENTER/E DIT ORDERABLES Final Result * (ABNORMAL) POCT glycosylated hemoglobin (Hgb A1c) (10/29/2024 9:35 AM EDT) Hemoglobin A1C 10.1(A) 4.0 - 6.0 % QC Media Lot # [id number] Lot# Expiration Date Blood Capillary blood specimen / Unknown 10/29/2024 9:35 AM EDT Aleisha Morillo MD POINT OF CARE TEST ENTER/E DIT ORDERABLES Final Result * Hepatitis Panel, General (03/27/2024 8:56 AM EDT) Pathologist [facility] Hepatitis A IgM Nonreactive Nonreactive [facility] Comment:IgM antibodies to MYERS V not detected; does not exclude earlyacute or recovered HAV infection. ~Hepatitis B Surface Antibody NONREACTIVE Nonreactive [facility] Comment:Nonreactive: < 8.00 mIU/mL Hepatitis B Core Antibody Nonreactive Nonreactive [facility] Hepatitis C Antibody Nonreactive Nonreactive [facility] Comment:Antibodies to HCV no t detected; does not exclude early acuteHCV infection. Hepatitis B Surface Ag Negative Negative [facility] Blood Venous blood specimen / Unknown 03/27/2024 8:56 AM EDT 03/27/2024 11:05 AM EDT Aleisha Morillo MD LAB BLOOD ORDERABLES Final Result [facility] [address] [place] [phone] * Colposcopy (01/17/2024) Historical Provider IN CLINIC/BEDSIDE ORDERAB LES Final Result * (ABNORMAL) HM PAP/HPV (01/17/2024) Pap Smear 1. NILM 1. NILM HPV Detected(A ) Undetected, Indeterminate , Quantitative, Not Detected Historical Provider HEALTH MAINTENANCE Final Result * HIV Ab/Ag (JONATHAN MENDIOLA) (02/08/2023 2:39 PM EDT) HIV AB/AG Nonreactive Nonreactive [facility] Comment:HIV-1 p24 Ag and/or HIV-1/HIV-2 Ab not detected.A test result that is nonreactive does not exclude thepossibility of exposure to or infection with HIV-1 and/orHIV-2. Nonreactive results in this assay for individualswith prior exposure to HIV-1 and/or HIV-2 may be due toantigen and antibody levels that are below the limit ofdetection of this assay.The [employer]man[employer] Silverman HIV Ag/Ab Combo assay result andsupplemental assay results should be interpreted inconjunction with the patient's clinical presentation,history and other laboratory results. If the results areinconsistent with clinical evidence, additional testing issuggested to confirm the result. 02/08/2023 2:39 PM EDT 02/08/2023 4:25 PM EDT us [facility] External Provider LAB BLO OD ORDERABLES Final Result [facility] [address] [place] [phone] * BI Mammogram Diagnostic Tomosynthesis Right (08/15/2022 2:35 PM EST) Anatomical Region Laterality Modality Breast Right Mammography 08/15/2022 2:35 PM EST Narrative 08/15/2022 2:45 PM EST ? [facility] [place] ? [address] ?[place] [address] ? Mammography Report ? Signed ? Patient: Springer,Becky ?MR#: [id number] ?? [id number] ? : 1970 ?Acct:[id number] ? Age/Sex: 52 / F ?ADM Date: 01/17/23 ? Loc: HO.MAMMO ? Attending Dr: Aleisha Morillo MD ? Ordering Physician: Aleisha Morillo MD ? Results: 3.6MProbably Benign Finding - Short 6 M F/U ?? Suggested ? Date of Service: 08/15/22 ?Follow Up: 1 Year From Orig ?? inal Mammogram ? Procedure(s): MM tomosynthesis diagnostic RT ?? Accession Number(s): [id number] ? cc: Aleisha Morillo MD ? EXAMINATION: [...] 1442 ? DD/ 1435 ? TD/TT: ? Single Wire Saw Operator: KYLE ? Procedure Note Dav Rodriguez - 09/04/2022 Crista [facility] [address] [place] [address] Mammography Report Signed Patient: Dandy Springer#: [id number] : 1970Acct:[id number] Age/Sex: 52 / FADM Date: 08/15/22 Loc: HO.MAMMO Attending Dr: Aleisha Morillo MD Ordering Physician: Aleisha Morillo MD Results: 3.6MProbably Benign Finding - Short 6 M F/U Suggested Date of Service: 08/15/22Follow Up: 1 Year From Orig inal Mammogram Procedure(s): MM tomosynthesis diagnostic RT Accession Number(s): [id number] cc: Aleisha Morillo MD EXAMINATION: MM DIAGNOSTIC [...] in OV> 08/15/22 1442 DD/ 1435 TD/TT: Single Wire Saw Operator: KYLE [facility] External Provider IMG BI PROCEDURES Final Result * Colonoscopy (01/13/2019) Colonoscopy Tubular adenoma with Dr. Yosi Rangel Historical Provider HEALTH MAINTENANCE Final Result from Last 3 Months or Most Recently Relevant to Health Maintenance Insurance [place] 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 Advance Directives and Living Will 03/27/2024 Health Care Proxy 03/27/24 Care Teams Marine Diver Relationship Specialty Start Date End Date Yisel, MD Aleisha [address] [place] [phone] PCP - General Family Medicine 07/30/18 Purvi Sahni PharmD [address] [place] [address] Pharmacist Internal Medicine 10/26/22 Lester Santana [address] [place] [address] Drive [address] [place], [place] Neurosurgery 06/19/24 Chun Felix MD [address] [place] [address] Psychiatrist Psychiatry 05/07/24 Amalia Hernandez MD [facility] [address] [place] [address] Gynecology 06/19/24 HANY Diamond [facility] Gastroenterology [address] [place] [address] Gastroenterology 07/14/24 [facility] [address] [place] [address] Optometry 10/29/24
--- OUTSIDE RECORDS SUMMARY | 2024-11-19 16:59 | XMS_ITS | Encounter Summary ---
Author Organization [employer] Address [address] [facility] 7t [place] [address] Care Team Providers Care Cheese Weigher Name Role Phone Aleisha Morillo MD Primary Care Provider + [phone] Purvi Sahni PharmD Unavailable Lester Santana Unavailable Encounter Details Date Type Department Care Team (Latest Contact Info) Description 12/12/2018 Abstract [facility] CONVERSIONS Dental, Provider, DDS Social History Tobacco Use Types Packs/Day Years [...] Description 12/03/2024 2:30 PM EDT Medication Management [facility] [address] [place] [phone] Purvi Sahni, PharmD [address] [place] [address] 02/11/2025 3:15 PM EDT Office Visit [facility] [address] [place] [address] [phone] Aleisha Morillo MD [address] [place], [place] [phone] documented as of this encounter Visit Diagnoses Not on filedocumented in this encounter Care Teams Cheese Weigher Relationship Specialty Start Date End Date Aleisha Morillo MD [address] [place] [address] PCP - General Family Medicine 07/30/18 Purvi Sahni PharmD [address] [place] [address] Pharmacist Internal Medicine 10/26/22 Lester Santana [address] [place] [address] Drive [address] [place], [place] Neurosurgery 06/19/24 Chun Felix MD [address] [place] [address] Psychiatrist Psychiatry 05/07/24 Amalia Hernandez MD [address] Gynecology 06/19/24 HANY Diamond [facility] Gastroenterology [address] [place] [address] Gastroenterology 07/14/24 [facility] [address] [place] [address] Optometry 10/29/24 documented as of this encounter
--- OUTSIDE RECORDS SUMMARY | 2024-11-19 16:59 | XMS_ITS | Encounter Summary ---
Author Organization [employer] Address [address] [facility] 7t [place] [address] Care Team Providers Care Manager Telemarketing Name Role Phone Aleisha Morillo MD Primary Care Provider +1- [phone] Purvi Sahni PharmD Unavailable +1- [phone] Lester Santana Unavailable Reason for Visit * Reason Onset Date Comments Appointment Request 11/12/2024 Encounter Details Date Type Department Care Team (Late st Contact Info) Description 11/12/2024 Telephone [facility] MEDICINE [address] [place] [address] Aleisha Morillo MD [address] [place], [place] [phone] Appointment Request Social History Tobacco Use Types Packs/Day Years [...] encounter Miscellaneous Notes * Telephone Encounter - Mandy Forbes - 11/12/2024 11:42 AM EDT Tc from pt requesting r/s 11/03 appointment with Purvi Sahni. documented in this encounter Plan of Treatment Upcoming Encounters Date Type Department Care Team (Late st Contact Info) Description 12/03/2024 2:30 PM EDT Medication Management [facility] MEDICINE [address] [place] [address] Purvi Sahni, PharmD [address] [place] [address] 02/11/2025 3:15 PM EDT Office Visit [facility] MEDICINE [address] [place] [address] [phone] Aleisha Morillo MD [address] [place] [address] documented as of this encounter Goals Goal [...] as of this encounter Care Teams Manager Telemarketing Relationship Specialty Start Date End Date Aleisha Morillo MD [address] [place] [address] PCP - General Family Medicine 07/30/18 Purvi Sahni, PharmD [address] [place] [address] Pharmacist Internal Medicine 10/26/22 Lester Santana [address] [place] [address] Drive [address] [place], [place] Neurosurgery 06/19/24 Chun Felix MD [address] [place] [address] Psychiatrist Psychiatry 05/07/24 Amalia Hernandez MD [address] Gynecology 06/19/24 HANY Diamond [facility] Gastroenterology [address] [place] [address] Gastroenterology 07/14/24 [facility] [address] [place] [address] Optometry 10/29/24 documented as of this encounter
--- OUTSIDE RECORDS SUMMARY | 2024-11-19 16:59 | XMS_ITS | Encounter Summary ---
Author Organization [employer] Address [address] 7t [place] [address] Care Team Providers Care Program Management Specialist Name Role Phone Aleisha Morillo MD Primary Care Provider +1- [phone] Purvi Sahni PharmD Unavailable +1- [phone] Lester Santana Unavailable Encounter Details Date Type Department Care Team (Latest Contact Info) Description 11/19/2024 Travel Social History Tobacco Use Types Packs/Day Years [...] Description 12/03/2024 2:30 PM EDT Medication Management [facility] MEDICINE [address] [place] [phone] Purvi Sahni, PharmD [address] [place] [address] 02/11/2025 3:15 PM EDT Office Visit [facility] MED[facility] [address] [place] [phone] Aleisha Morillo MD [address] [place] [address] [phone] documented as of this encounter Goals Goal [...] documented as of this encounter Care Teams Program Management Specialist Relationship Specialty Start Date End Date Aleisha Morillo MD [address] [place] [address] [phone] PCP - General Family Medicine 07/30/18 Purvi Sahni, PharmD [address] [place] [address] [phone] Pharmacist Internal Medicine 10/26/22 Lester [address] [facility] [place], [place] Neurosurgery 06/19/24 Chun Felix MD [address] [place] [address] Psychiatrist Psychiatry 05/07/24 Amalia Hernandez MD [address] Gynecology 06/19/24 HANY Diamond [facility]astroenterology [address] [place] [address] Gastroenterology 07/14/24 [facility] [address] [place] [address] Optometry 10/29/24 documented as of this encounter
--- OUTSIDE RECORDS SUMMARY | 2024-11-19 16:59 | XMS_ITS | Encounter Summary ---
Author Organization [employer] Address [address] [facility] 7t [place] [address] Care Team Providers Care State Attorney Name Role Phone Aleisha Morillo MD Primary Care Provider +1- [phone] Purvi Sahni PharmD Unavailable +1- [phone] Lester Santana Unavailable Reason for Visit * Reason Onset Date Comments ER Follow-up 02/01/2024 Med Refill 02/01/2024 Encounter Details Date Type Department Care Team (Late st Contact Info) Description 02/01/2024 Telephone [facility] MEDICINE [address] [place], [place] [phone] Aleisha Morillo MD [address] [place], [place] [phone] ER Follow-up; Med Refill Social History Tobacco Use Types Packs/Day Years Used Date Smoking Tobacco: Never Smokeless Tobacco: Never Depression Answer Date Recorded Patient Health Questionnaire-9 Score 0 10/05/2022 Housing Stability Answer Date Recorded What is your housing situation today? I have macie phillips 05/18/[address] you li ve. Do you have problems with any of the following? None of the above 05/18/2023 Food Insecurity Answer Date Recorded Within the past 12 months, y ou worried that your food would run out before you got money to buy more: Never True 05/18/2023 Within the past 12 months,th e food you bought just didn't last and you didn't have enough money to get more: Never True Transportation Answer Date Recorded In the past 12 months, has l ack of transportation kept you from medical appts, meetings, work or from getting things needed for daily living? No 05/18/2023 Utilities Answer Date Recorded In the past 12 months, has t he electric, gas, oil or water company threatened to shut off services in your home? No 05/18/2023 Depression Answer Date Recorded Patient Health Questionnaire-2 Score 0 10/05/2022 Comments Unknown Sex and Gender Information Value Date Recorded Sex Assigned at Female 05/29/2022 10:18 AM EDT Legal Sex Female 10:18 AM EDT Gender Identity Female 05/29/2022 10:18 AM EDT Sexual Orientation Choose not to disclose 2021 10:18 AM EDT documented as of this encounter Miscellaneous Notes * Telephone Encounter - Nelson Negrete - 02/01/2024 3:49 PM EDT Tc from patient calling to request refills for all of her medications specification writer did ask what are the names of the medication patient stated did not know the doctor should. Patient calling to report ED visit on : Date: 01/27 Hospital: [facility] Seen for: Abdominal and back pain Patient advised will forward to team nurse for follow up documented in this encounter Plan of Treatment Upcoming Encounters Date Type Department Care Team (Late st Contact Info) Description 12/03/2024 2:30 PM EDT Medication Management [facility] MEDICINE [address] [place] [phone] Purvi Sahni, PharmD [address] [place] [address] 02/11/2025 3:15 PM EDT Office Visit [facility] MED[facility] [address] [place] [address] Aleisha Morillo MD [address] [place] [address] documented as of this encounter Goals Goal [...] documented as of this encounter Care Teams State Attorney Relationship Specialty Start Date End Date Aleisha Morillo MD [address] [place] [address] PCP - General Family Medicine 07/30/18 Purvi Sahni, PharmD [address] [place] [address] Pharmacist Internal Medicine 10/26/22 Lester Santana [address] [place] [address] Drive [address] [place], [place] Neurosurgery 06/19/24 Chun Felix MD [address] [place] [address] Psychiatrist Psychiatry 05/07/24 Amalia Hernandez MD [facility] [address] [place] [address] Gynecology 06/19/24 HANY Diamond [facility] Gastroenterology [address] [place] [address] Gastroenterology 07/14/24 [facility] [address] [place] [address] Optometry 10/29/24 documented as of this encounter
== END 2024-11-19 14:07 | disposition home or self-care (01) ==
LOC: HO.HHCL 14:06
PROVIDERS: Visit Provider Family Medicine
DX: E11.40 Type 2 diabetes mellitus with diabetic neuropathy, unspecified (principal); E11.65 Type 2 diabetes mellitus with hyperglycemia
CPT/HCPCS: 36415; 80048; 80061; 80076; 82043; 82570; 83036

== ENCOUNTER 2025-06-12 16:15 | Outpatient (REF) | payer MEDICAID, SELFPAY | END 2025-06-12 16:16 | disposition home or self-care (01) | LOC: HO.MAMMO 16:15 | PROVIDERS: PCP Family Medicine; Visit Provider Family Medicine | DX: Z12.31 Encounter for screening mammogram for malignant neoplasm of breast (principal) | CPT/HCPCS: 77063; 77067 ==

== ENCOUNTER → 2025-06-12 16:30 | Outpatient (BNV) | payer MEDICAID, SELFPAY | PROVIDERS: PCP Family Medicine; Visit Provider Internal Medicine | DX: Z12.31 Encounter for screening mammogram for malignant neoplasm of breast (principal) | CPT/HCPCS: 77063; 77067 ==

== ENCOUNTER 2025-06-29 13:37 | Outpatient (REF) | payer MEDICAID, SELFPAY ==
--- NOTE | ~2025-06-29 | MM_ITS ---
EXAMINATION(S): MM DIAGNOSTIC DIGITAL BREAST TOMOSYNTHESIS, RIGHT CLINICAL INFORMATION: Callback from screening for right breast grouped calcifications in the lower inner quadrant posterior depth. These calcifications have been first described in February 2021, and since then, they have been followed up with spot magnified compression views. Left diagnostic mammogram in July 2022 recommend a 6-month follow-up for the calcifications. The patient returned to the service and was scheduled erroneously as screening on June 12, 2025. COMPARISON: Comparison made to multiple prior, most recent June 12, 2025, and most remote March 08, 2021. TECHNIQUE: Digital breast tomosynthesis is performed with spot magnified compression views of the right breast calcifications. FINDINGS: BREAST COMPOSITION: There are scattered areas of fibroglandular density. RIGHT BREAST: Grouped calcifications in the lower inner quadrant posterior depth are not significantly changed from prior spot magnified compression views as far back as February 2021; at this point, they can be considered a benign finding and no dedicated follow-up is needed. No suspicious calcifications are seen. MM/MM diagnostic mammo unilat RT IMPRESSION: RIGHT BREAST: Grouped calcifications in the lower inner quadrant posterior depth, not significantly changed since February 2021. Benign, no mammographic evidence of malignancy. Normal interval follow-up is recommended in 12 months. ASSESSMENT: BI-RADS: Category 2: Benign RECOMMENDATION: 1 year F/U Results were provided to the patient at time of visit by the technologist. This patient's information was entered into a reminder system with a target due date for their next mammogram. Electronically signed by: Malina Benites MD 06/29/2025 02:24 PM [facility]
--- OUTSIDE RECORDS SUMMARY | 2025-06-29 17:12 | XMS_ITS | Encounter Summary ---
Author Organization [employer] Address [address] [facility] 7t [place] [address] Care Team Providers Care Guide Alpine Name Role Phone Aleisha Morillo MD Primary Care Provider +- [phone] Purvi Sahni PharmD Unavailable +1- [phone] Lester Santana Unavailable Reason for Visit * Reason Onset Date Comments Appointment Request 11/12/2024 Encounter Details Date Type Department Care Team (Late st Contact Info) Description 11/12/[address] [facility] MEDICINE [address] [place], [place] [phone] Aleisha Morillo MD [address] [place], [place] [phone] Appointment Request Social History Tobacco Use Types [...] documented in this encounter Plan of Treatment Not on file documented as of this encounter Goals Goal Patient Goal Type Associated Problems Recent Progress Patient-Stated? Author Hemoglobin A1c < 7 Result Component 8.5(06/10/2025 4:22 PM EST) No Purvi Sahni, PharmD documented as of this encounter Visit Diagnoses Not on filedocumented in this encounter Additional Health Concerns Assessment Noted Time PHQ-9 Depression Total Score: 15 024 9:18 AM EDT documented as of this encounter Care Teams Guide Alpine Relationship Specialty Start Date End Date Aleisha Morillo MD [address] [place] [address] PCP - General Family Medicine 07/30/18 Purvi Sahni, PharmD [address] [place] [address] Pharmacist Internal Medicine 10/26/22 Lester Santana [address] [place], [place] Neurosurgery 06/19/24 Chun Felix MD [address] [place] [address] Psychiatrist Psychiatry 05/07/24 Amalia Hernandez MD [address] Gynecology 06/19/24 HANY Diamond [facility] Gastroenterology [address] [place] [address] Gastroenterology 07/14/24 [facility] [address] [place] [address] Optometry 10/29/24 documented as of this encounter
--- OUTSIDE RECORDS SUMMARY | 2025-06-29 17:12 | XMS_ITS | Encounter Summary ---
Author Organization [employer] [facility] Address [address]t [place] [address] Care Team Providers Care Pet Groomer Name Role Phone Aleisha Morillo MD Primary Care Provider +1- [phone] Purvi Sahni PharmD Unavailable +1- [phone] Lester Santana Unavailable Encounter Details Date Type Department Care Team (Late st Contact Info) Description 07/18/2022 Orders Only [facility] [address] [place] [address] Juju Norton LPN Social History Tobacco Use [...] as of this encounter Plan of Treatment Not on file documented as of this encounter Procedures Procedure [...] RNA, TMA, Urogenitial (02/08/2023 2:45 PM EDT) CT PCR NOT DETECTED Not Detect. [facility] Comment:A not detected test result [...] psychologicalconsequences. NG PCR NOT DETECTED Not Detect. [facility] Comment:A not detected test result [...] PM EDT 02/08/2023 4:32 PM EDT Narrative [facility] - 02/09/2023 1:37 PM EDT Urine [facility] Exter nal Provider LAB MICROBIOLOGY - GENERAL ORDERABLES Final Result Performing Organization Address [facility] Co de Phone Number [facility] [address] [place] [phone] * (ABNORMAL) Confirmatory Syphilis Profile (02/08/2023 2:39 PM EDT) Rapid Plasma Reagin, Quant Non-React douglas Nonreactive [facility] Treponema pallidum Antibody, Particle Agglutination Reactive( A) Nonreactive [facility] Comment:These results must b e reported by the ordering clinician orclinical facility [facility] required by state law. 02/08/2023 2:39 PM EDT 02/09/2023 12:16 PM EDT Aleisha Morillo MD LAB BLOOD ORDERABLES Final Result Performing Organization Address [facility] de Phone Number [facility] [address] [place] [phone] * (ABNORMAL) Syphilis Screen (02/08/2023 2:39 PM EDT) Syphilis Screen Reactive( A) Nonreactive [facility] Comment:Reactive specimens a re [facility] tests. 02/08/2023 2:39 PM EDT 02/08/2023 4:25 PM EDT [facility] External Provider LAB BLO OD ORDERABLES Final Result Performing Organization Address [facility] Co de Phone Number [facility] [address] [place] [address] [phone] * HIV Ab/Ag (JONATHAN [facility]) (02/08/2023 2:39 PM EDT) Pathologist [facility] HIV AB/AG Nonreactive Nonreactive [facility] Comment:HIV-1 p24 Ag and/or HIV-1/HIV-2 Ab not detected.A test result that is nonreactive does not exclude thepossibility of exposure to or infection with HIV-1 and/orHIV-2. Nonreactive results in this assay for individualswith prior exposure to HIV-1 and/or HIV-2 may be due toantigen and antibody levels that are below the limit ofdetection of this assay.The [employer] HIV Ag/Ab Combo assay result andsupplemental assay results should be interpreted inconjunction with the patient's clinical presentation,history and other laboratory results. If the results areinconsistent with clinical evidence, additional testing issuggested to confirm the result. 02/08/2023 2:39 PM EDT 02/08/2023 4:25 PM EDT [facility] External Provider LAB BLO OD ORDERABLES Final Result Performing Organization Address [facility]/ZIP Co de Phone Number [facility] [address] [place] [phone] * Hepatitis C Antibody Reflex (02/08/2023 2:39 PM EDT) Pathologist [facility] Hepatitis C Antibody Nonreactive Nonreactive [facility] Comment:Antibodies to HCV no t detected; does not exclude early acuteHCV infection. 02/08/2023 2:39 PM EDT 02/08/2023 4:25 PM EDT [facility] External Provider LAB BLO OD ORDERABLES Final Result Performing Organization Address City/[facility]/ZIP Co de Phone Number [facility] [address] [place] [address] [phone] * Lipid Panel, Standard (02/08/2023 2:39 PM EDT) Triglycerides 99 mg/dL [facility] Comment:Desirable Triglyceri de: less than 150 mg/dLBorderline High Triglyceride 150-199 mg/dLHigh Triglyceride: 200-499 mg/dLVery High Triglyceride: greater than or equal to 5OO mg/dL Cholesterol 248 mg/dL [facility] Comment:Desirable Cholestero l: less than 200 mg/dLBorderline High Cholesterol: 200-239 mg/dLHigh Cholesterol: greater than 239 mg/dL LDL Cholesterol Calculated 170 mg/dl [facility] Comment:Desirable LDL: less than 100 mg/dLNear Optimal/Above Optimal LDL: 110- 129 mg/dLBorderline High LDL: 130-159 mg/dLHigh LDL: 160-189 mg/dLVery High LDL: greater than or equal to 190 mg/dL HDL Cholesterol 59 mg/dL [facility] Comment:Desirable HDL: great er than 40 mg/dL Note: This HDL assay may give artificially low results in patients with liver disease. 02/08/2023 2:39 PM EDT 02/08/2023 4:25 PM EDT us [facility] External Provider LAB BLO OD ORDERABLES Final Result [facility] [address] [place] [phone] * (ABNORMAL) Basic Metabolic Panel (02/08/2023 2:39 PM EDT) Sodium 140 135 - 145 mmol/L [facility] Potassium 4.5 3.3 - 5.1 mmol/L [facility] Chloride 107 96 - 108 mmol/L [facility] Carbon Dioxide 24 22 - 29 mmol/L [facility] Anion Gap 14 12 - 20 [facility] Urea Nitrogen (BUN) 18(H) 9 - 16 mg/dL [facility] Creatinine, Serum 0.77 0.5 - 1.4 mg/dL [facility] Estimated Glomerular Filt Rate >60 [facility] Comment:NOTE: For -Am erican individuals, multiply the result by 1.210.Chronic Kidney Disease: Estimated GFR < 60 mL/min/1.46f7Loegzt Kidney Disease: Estimated GFR < 15 mL/min/1.73m2 Glucose 149(H) 60 - 115 mg/dL [facility] Calcium 9.8 8.4 - 10.2 mg/dL [facility] 02/08/2023 2:39 PM EDT 02/08/2023 4:25 PM EDT [facility] External Provider LAB BLO OD ORDERABLES Final Result Performing Organization Address [facility] de Phone Number [facility] [address] [place] [phone] * (ABNORMAL) Hepatic Function Panel (02/08/2023 2:39 PM EDT) Bilirubin, Total 0.3 0.0 - 1.0 mg/dL [facility] Bilirubin, Direct 0.1 0.0 - 0.5 mg/dL [facility] Aspartate Amino Transferase 18 5 - 31 U/L [facility] Alanine Aminotransferase 19 0 - 31 U/L [facility] Total Protein 7.1 6.5 - 8.0 g/dL [facility] Albumin Level 3.8 3.5 - 5.0 g/dL [facility] Alkaline Phosphatase 154(H) 39 - 117 U/L [facility] 02/08/2023 2:39 PM EDT 02/08/2023 4:25 PM EDT [facility] External Provider LAB BLO OD ORDERABLES Final Result Performing Organization Address [facility] de Phone Number [facility] [address] [place] [phone] * BI Mammogram Diagnostic Tomosynthesis Right (08/15/2022 2:35 PM EST) Anatomical Region Laterality Modality Breast Right Mammography 08/15/2022 2:35 PM EST Narrative 08/15/2022 2:45 PM EST [facility] [address] [place] [address] [place], [place] [address] Mammography Report Signed Patient: Becky Springer MR#: [id number] : 1970 Acct:[id number] Age/Sex: 52 / F ADM Date: 08/15/22 Loc: HO.MAMMO Attending Dr: Aleisha Morillo MD Ordering Physician: Aleisha Morillo MD Results: 3.6MProbably Benign Finding - Short 6 M F/U Suggested Date of Service: 08/15/22 Follow Up: 1 Year From Orig inal Mammogram Procedure(s): MM tomosynthesis diagnostic RT Accession Number(s): [id number] cc: Aleisha Morillo MD EXAMINATION: MM DIAGNOSTIC [...] in OV> 08/15/22 1442 DD/ 1435 TD/TT: Elevator Worker: KYLE Procedure Note Donotuseinterpreter, Image - 09/04/2022 [facility] [address] [place], [place] [address] Mammography Report Signed Patient: Dandy Springer#: [id number] : 1970Acct:[id number] Age/Sex: 52 / FADM Date: 08/15/22 Loc: HO.MAMMO Attending Dr: Aleisha Morillo MD Ordering Physician: Aleisha Morillo MD Results: 3.6MProbably Benign Finding - Short 6 M F/U Suggested Date of Service: 08/15/22Follow Up: 1 Year From Orig inal Mammogram Procedure(s): MM tomosynthesis diagnostic RT Accession Number(s): [id number] cc: Aleisha Morillo MD EXAMINATION: MM DIAGNOSTIC [...] in OV> 08/15/22 1442 DD/ 1435 TD/TT: Elevator Worker: SAROJ [facility] External Provider IMG BI PROCEDURES Final Result documented in this encounter Visit Diagnoses Not on filedocumented in this encounter Care Teams Pet Groomer Relationship Specialty Start Date End Date Aleisha Morillo MD [address] [place] [address] PCP - General Family Medicine 07/30/18 Purvi Sahni, YobanyD [address] [place] [address] Pharmacist Internal Medicine 10/26/22 Lester Santana [address] [place] [address] Drive [address] [place] [address] Neurosurgery 06/19/24 Chun Felix MD [address] [place] [phone] Psychiatrist Psychiatry 05/07/24 Amalia Hernandez MD [address] Gynecology 06/19/24 HANY Diamond [facility] Gastroenterology [address] [place] [address] [phone] Gastroenterology 07/14/24 [facility] [address] [address] Optometry 10/29/24 documented as of this encounter
--- OUTSIDE RECORDS SUMMARY | 2025-06-29 17:12 | XMS_ITS | Encounter Summary ---
Author Organization [employer] [facility] Address [address] 7t [place] [address] Care Team Providers Care Broodmare Barn Groom Name Role Phone Aleisha Morillo MD Primary Care Provider + [phone] Purvi Sahni PharmD Unavailable [phone]- [phone] Lester Santana Unavailable Encounter Details Date Type Department Care Team (Latest Contact Info) Description 12/12/2018 Abstract [facility] CONVERSIONS Dental, Provider, DDS Social History Tobacco [...] on file documented as of this encounter Visit Diagnoses Not on filedocumented in this encounter Care Teams Broodmare Barn Groom Relationship Specialty Start Date End Date Aleisha Morillo MD [address] [place] [address] PCP - General Family Medicine 07/30/18 Purvi Sahni, PharmD [address] [place] [address] Pharmacist Internal Medicine 10/26/22 Lester Santana [address] [place] [address] Drive [address] [place], [place] Neurosurgery 06/19/24 Chun Felix MD [address] [place] [phone] Psychiatrist Psychiatry 05/07/24 Amalia Hernandez MD [facility] [address] [facility] Gynecology 06/19/24 HANY Diamond [facility] Gastroenterology [address] [place] [address] Gastroenterology 07/14/24 [facility] [address] [place] [address] Optometry 10/29/24 documented as of this encounter
--- OUTSIDE RECORDS SUMMARY | 2025-06-29 17:12 | XMS_ITS | Encounter Summary ---
Author Organization [employer] Address [address] 7t [place] [address] Care Team Providers Care Deputy County Clerk Name Role Phone Aleisha Morillo MD Primary Care Provider +1- [phone] Purvi Sahni PharmD Unavailable +1- [phone] Lester Santana Unavailable Reason for Visit * Reason Onset Date Comments ER Follow-up 02/01/2024 Med Refill 02/01/2024 Encounter Details Date Type Department Care Team (Late st Contact Info) Description 02/01/2024 Telephone [facility] MEDICINE [address] [place] [address] Aleisha Morillo MD [address] [place] [address] ER Follow-up; Med Refill Social History Tobacco [...] request refills for all of her medications play writer did ask what are the names of the medication patient stated did not know the doctor should. Patient calling to report ED visit on : Date: 01/27 Hospital: [facility] Seen for: Abdominal and back pain [...] documented as of this encounter Care Teams Deputy County Clerk Relationship Specialty Start Date End Date Aleisha Morillo MD [address] [place] [address] PCP - General Family Medicine 07/30/18 Purvi Sahni, YobanyD [address] [place] [address] Pharmacist Internal Medicine 10/26/22 Lester Santana [address] [place], [place] Neurosurgery 06/19/24 Chun Felix MD [address] [place] [phone] Psychiatrist Psychiatry 05/07/24 Amalia Hernandez MD [facility] [address] [place] [address] Gynecology 06/19/24 HANY Diamond [facility] Gastroenterology [address] [place] [address] Gastroenterology 07/14/24 [facility] [address] [place] [address] Optometry 10/29/24 documented as of this encounter
--- OUTSIDE RECORDS SUMMARY | 2025-06-29 17:12 | XMS_ITS | Encounter Summary ---
Author Organization [employer] Address [address] [facility] 7[address] [place] [address] Care Team Providers Care Nursing Teacher Name Role Phone Aleisha Morillo MD Primary Care Provider [phone]- [phone] Purvi Sahni PharmD Unavailable [phone]- [phone] Lester Santana Unavailable Encounter Details Date Type Department Care Team (Late st Contact Info) Description 06/12/2025 Orders Only [facility] [address] [place] [address] Provider, MD Hiral Polyp of colon, unspecified part of colon, unspecified type (Primary Dx) Social History Tobacco Use Types Packs/Day Years Used Date Smoking Tobacco: Never Smokeless Tobacco: Never Depression Answer Date Recorded Patient Health Questionnaire-9 Score 15 03/27/2024 Patient Health Questionnaire-9 Score 15 03/27/2024 Last PHQ-9: Questionnaire Data Not on file 0 03/27/2024 Housing Stability Answer Date Recorded What is your housing situation today? I have macie phillips 06/10/[address] you li ve. Do you have problems with any of the following? None of the above 06/10/2025 Food Insecurity Answer Date Recorded Within the past 12 months, y ou worried that your food would run out before you got money to buy more: Never True 06/10/2025 Within the past 12 months,th e food you bought just didn't last and you didn't have enough money to get more: Never True 06/2025 Transportation Answer Date Recorded In the past 12 months, has l ack of transportation kept you from medical appts, meetings, work or from getting things needed for daily living? No 06/10/2025 Utilities Answer Date Recorded In the past 12 months, has t he electric, gas, oil or water company threatened to shut off services in your home? No 06/10/2025 Depression Answer Date Recorded Patient Health Questionnaire-2 Score 4 02/11/2025 Internet Access Answer Date Recorded Internet Access Q1 No 06/10/2025 Internet Access Q2 I do not want or need it 05/30 Comments Unknown Sex and Gender Information Value [...] Author Hemoglobin A1c < 7 Result Component 8.5( 4:22 PM EST) No Purvi Alvarado, PharmD Help patients manage their type 2 diabetes Care Plan Help patients manage their type 2 diabetes Aleisha Curtis MD Weekly blood pressure task Care Plan Weekly blood pressure task Aleisha Curtis MD Help patients manage their type 2 diabetes Care Plan Help patients manage their type 2 diabetes Aleisha Curtis MD Patient has chronic kidney disease Care Plan Patient has chronic kidney disease Aleisha Curtis MD Help patients manage their type 2 diabetes Care Plan Help patients manage their type 2 diabetes Aleisha Curtis MD Patient has diabetic neuropathy Care Plan Patient has diabetic neuropathy Aleisha Curtis MD Weekly blood pressure task Care Plan Weekly blood pressure task Aleisha Curtis MD Weekly blood pressure task Care Plan Weekly blood pressure task Aleisha Curtis MD Patient has chronic kidney disease Care Plan Patient has chronic kidney disease Aleisha Curtis MD Patient has chronic kidney disease Care Plan Patient has chronic kidney disease Aleisha Curtis MD Patient has diabetic neuropathy Care Plan Patient has diabetic neuropathy Aleisha Curtis MD Patient has diabetic neuropathy Care Plan Patient has diabetic neuropathy Aleisha Curtis MD documented as of this encounter Procedures Procedure Name Priority Date/Time Associated Diagnosis Comments BI MAMMOGRAM DIAGNOSTIC RIGHT Routine 06/29/2025 1:57 PM EST BI MAMMOGRAM SCREENING TOMOSYNTHESIS BILATERAL Routine 06/12/2025 4:25 PM EST COLONOSCOPY Routine 06/11/2025 documented in this encounter Results * Mammogram Diagnostic Right (06/29/2025 1:57 PM EST) Anatomical Region Laterality Modality Breast Right Mammography 06/29/2025 1:57 PM EST Narrative 06/29/2025 2:26 PM EST [facility]'s [address] [place] [address] Mammography Report Signed Patient: Becky Springer MR#: [id number] 643 : 1970 Acct:[id number] Age/Sex: 54 / F ADM Date: 06/29/25 Loc: HO.MAMMO Attending Dr: Aleisha Morillo MD Ordering Physician: Aleisha Morillo MD Results: 2B enign Date of Service: 06/29/25 Follow Up: 1 Year From Orig [facility] Mammogram Procedure(s): MM diagnostic mammo unilat RT Accession Number(s): [id number] cc: Aleisha Morillo MD Reason For Exam: RT BR A/V FOR CALS. EXAMINATION(S): MM DIAGNOSTIC DIGITAL BREAST TOMOSYNTHESIS, RIGHT CLINICAL INFORMATION: Callback from screening for right breast grouped calcifications in the lower inner quadrant posterior depth. These calcifications have been first described in February 2021, and since then, they have been followed up with spot magnified compression views. Left diagnostic mammogram in July 2022 recommend a 6-month follow-up for the calcifications. The patient returned to the service and was scheduled erroneously as screening on June 12, 2025. COMPARISON: Comparison made to multiple prior, most recent June 12, 2025, and most remote March 08, 2021. TECHNIQUE: Digital breast tomosynthesis is performed with spot magnified compression views of the right breast calcifications. FINDINGS: BREAST COMPOSITION: There are scattered areas of fibroglandular density. RIGHT BREAST: Grouped calcifications in the lower inner quadrant posterior depth are not significantly changed from prior spot magnified compression views as far back as February 2021; at this point, they can be considered a benign finding and no dedicated follow-up is needed. No suspicious calcifications are seen. MM/MM diagnostic mammo unilat RT IMPRESSION: RIGHT BREAST: Grouped calcifications in the lower inner quadrant posterior depth, not significantly changed since February 2021. Benign, no mammographic evidence of malignancy. Normal interval follow-up is recommended in 12 months. ASSESSMENT: BI-RADS: Category 2: Benign RECOMMENDATION: 1 year F/U Results were provided to the patient at time of visit by the technologist. This patient's information was entered into a reminder system with a target due date for their next mammogram. Electronically signed by: Malina Benites MD 06/29/2025 02:24 PM EST Dictated By: Malina Benites MD Signed By: <Electronically signed by Malina Benites MD in OV> 06/29/25 1424 DD/ 1357 TD/TT: 06/29/25 1402 Animal Health Technician: Procedure Note Donotuseinterpreter, Image - 06/29/2025 [facility]'s [address] [place] [address] Mammography Report Signed Patient: Dandy Springer#: [id number] 643 : 1970Acct:[id number] Age/Sex: 54 / FADM Date: 06/29/25 Loc: HO.MAMMO Attending Dr: Aleisha Morillo MD Ordering Physician: Aleisha Morillo MDResults: 2B enign Date of Service: 06/29/25Follow Up: 1 Year From Orig [facility] Mammogram Procedure(s): MM diagnostic mammo unilat RT Accession Number(s): [id number] cc: Aleisha Morillo MD Reason For Exam: RT BR A/V FOR CALS. EXAMINATION(S): MM DIAGNOSTIC DIGITAL BREAST TOMOSYNTHESIS, RIGHT CLINICAL INFORMATION: Callback from screening for right breast grouped calcifications in the lower inner quadrant posterior depth. These calcifications have been first described in February 2021, and since then, they have been followed up with spot magnified compression views. Left diagnostic mammogram in July 2022 recommend a 6-month follow-up for the calcifications. The patient returned to the service and was scheduled erroneously as screening on June 12, 2025. COMPARISON: Comparison made to multiple prior, most recent June 12, 2025, and most remote March 08, 2021. TECHNIQUE: Digital breast tomosynthesis is performed with spot magnified compression views of the right breast calcifications. FINDINGS: BREAST COMPOSITION: There are scattered areas of fibroglandular density. RIGHT BREAST: Grouped calcifications in the lower inner quadrant posterior depth are not significantly changed from prior spot magnified compression views as far back as February 2021; at this point, they can be considered a benign finding and no dedicated follow-up is needed. No suspicious calcifications are seen. MM/MM diagnostic mammo unilat RT IMPRESSION: RIGHT BREAST: Grouped calcifications in the lower inner quadrant posterior depth, not significantly changed since February 2021. Benign, no mammographic evidence of malignancy. Normal interval follow-up is recommended in 12 months. ASSESSMENT: BI-RADS: Category 2: Benign RECOMMENDATION: 1 year F/U Results were provided to the patient at time of visit by the technologist. This patient's information was entered into a reminder system with a target due date for their next mammogram. Electronically signed by: Malina Benites MD 06/29/2025 02:24 PM EST Dictated By: Malina Benites MD Signed By: <Electronically signed by Malina Benites MD in OV> 06/29/25 1424 DD/ 1357 TD/TT: 06/29/25 1402 Animal Health Technician: us Aleisha Morillo MD IM BI PROCEDURES Final Re sult * BI Mammogram Screening Tomosynthesis Bilateral (06/12/2025 4:25 PM EST) Anatomical Region Laterality Modality Breast Bilateral Mammography 06/12/2025 4:25 PM EST Narrative 06/16/2025 6:43 PM EST [facility]'s [address] [place] [address] Mammography Report Signed Patient: Becky Springer MR#: [id number] 643 : 1970 Acct:[id number] Age/Sex: 54 / F ADM Date: 06/12/25 Loc: HO.MAMMO Attending Dr: Aleisha Morillo MD Ordering Physician: Aleisha Morillo MD Results: 0I ncomplete- Need Additional Imaging Evaluation Date of Service: 06/12/25 Follow Up: Additional Imagi ng Procedure(s): MM tomosynthesis screening BI Accession Number(s): [id number] cc: Aleisha Morillo MD Reason For Exam: SCREENING EXAMINATION: MM SCREENING DIGITAL BREAST TOMOSYNTHESIS, BILATERAL CLINICAL INFORMATION: Screening. Asymptomatic. COMPARISON: Mammography: Comparison is made with available priors TECHNIQUE: Digital breast mammography with tomosynthesis is performed in both the craniocaudal and mediolateral oblique views along with computer-aided detection (CAD). FINDINGS: There are scattered areas of fibroglandular density. Right: Grouped calcifications in the lower inner right breast posterior depth were recommended for follow-up and magnification views. No suspicious masses or other abnormal findings. Left: There are no significant masses, abnormal calcifications, or other abnormalities. MM/MM tomosynthesis screening BI IMPRESSION: Additional imaging is recommended ASSESSMENT: BI-RADS Category 0: Incomplete - Need additional Imaging Evaluation RECOMMENDATION: 1. Additional views of the right breast with magnification views. 2. Targeted ultrasound if warranted after review of the additional views. 3. Radiology department staff will contact the patient for additional imaging. Additional Imaging required Electronically signed by: Sharonda Sherwood DO 06/16/2025 06:40 PM [facility] Dictated By: Sharonda Sherwood DO Signed By: <Electronically signed by Sharonda Sherwood DO in OV> 06/16/25 1840 DD/ 1625 TD/TT: 06/12/25 1637 Animal Health Technician: Procedure Note Michael, Image - 06/16/2025 [facility] [address] [place], [place] [address] Mammography Report Signed Patient: Dandy Springer#: [id number] 643 : 1970Acct:[id number] Age/Sex: 54 / FADM Date: 06/12/25 Loc: HO.MAMMO Attending Dr: Aleisha Morillo MD Ordering Physician: Aleisha Morillo MDResults: 0I ncomplete- Need Additional Imaging Evaluation Date of Service: 06/12/25Follow Up: Additional Imagi ng Procedure(s): MM tomosynthesis screening BI Accession Number(s): [id number] cc: Aleisha Morillo MD Reason For Exam: SCREENING EXAMINATION: MM SCREENING DIGITAL BREAST TOMOSYNTHESIS, BILATERAL CLINICAL INFORMATION: Screening. Asymptomatic. COMPARISON: Mammography: Comparison is made with available priors TECHNIQUE: Digital breast mammography with tomosynthesis is performed in both the craniocaudal and mediolateral oblique views along with computer-aided detection (CAD). FINDINGS: There are scattered areas of fibroglandular density. Right: Grouped calcifications in the lower inner right breast posterior depth were recommended for follow-up and magnification views. No suspicious masses or other abnormal findings. Left: There are no significant masses, abnormal calcifications, or other abnormalities. MM/MM tomosynthesis screening BI IMPRESSION: Additional imaging is recommended ASSESSMENT: BI-RADS Category 0: Incomplete - Need additional Imaging Evaluation RECOMMENDATION: 1. Additional views of the right breast with magnification views. 2. Targeted ultrasound if warranted after review of the additional views. 3. Radiology department staff will contact the patient for additional imaging. Additional Imaging required Electronically signed by: Sharonda Sherwood DO 06/16/2025 06:40 PM [facility] Dictated By: Sharonda Sherwood DO Signed By: <Electronically signed by Sharonda Sherwood DO in OV> 06/16/25 1840 DD/ 1625 TD/TT: 06/12/25 1637 Animal Health Technician: Aleisha Morillo MD IMG BI PROCEDURES Final Re sult * Colonoscopy (06/11/2025) Anatomical Region Laterality Modality Endoscopy Historical Provider ENDOSCOPY PROCEDURE ORDER SHARA Final Result documented in this encounter Visit Diagnoses Diagnosis Polyp of colon, unspecified part of colon, unspecified type- Primary documented in this encounter Additional Health Concerns Active Problems Noted Date Diagnosed Date Help patients manage their type 2 diabetes 06/10 Weekly blood pressure task 06/10/2025 Help patients manage their type 2 diabetes 06/10 Patient has chronic kidney disease 06/10/2025 Help patients manage their type 2 diabetes 06/10 Patient has diabetic neuropathy 06/10/2025 Weekly blood pressure task 06/10/2025 Weekly blood pressure task 06/10/2025 Patient has chronic kidney disease 06/10/2025 Patient has chronic kidney disease 06/10/2025 Patient has diabetic neuropathy 06/10/2025 Patient has diabetic neuropathy 06/10/2025 Assessment Noted Time PHQ-9 Depression Total Score: 15 024 9:18 AM EDT documented as of this encounter Care Teams Nursing Teacher Relationship Specialty Start Date End Date Aleisha Morillo MD [address] [place] [address] PCP - General Family Medicine 07/30/18 Purvi Sahni, PharmD [address] [place] [address] Pharmacist Internal Medicine 10/26/22 Lester Santana [address] [place] [address] Drive [address] [place], [place] Neurosurgery 06/19/24 Chun Felix MD [address] [place] [phone] Psychiatrist Psychiatry 05/07/24 Amalia Hernandez MD [address] Gynecology 06/19/24 HANY Diamond [facility] Gastroenterology [address] [place] [address] Gastroenterology 07/14/24 [facility] [address] [place] [address] Optometry 10/29/24 documented as of this encounter
--- OUTSIDE RECORDS SUMMARY | 2025-06-29 17:12 | XMS_ITS | Encounter Summary ---
Author Organization [employer] Address [address] [facility] 7[address] [place] [address] Care Team Providers Care Supervising Editor Trailer Name Role Phone Aleisha Morillo MD Primary Care Provider +- [phone] Purvi Sahni PharmD Unavailable Lester Santana Unavailable Encounter Details Date Type Department Care Team (Late st Contact Info) Description 09/04/2022 Abstract [facility] MEDICINE [address] [place], [place] [phone] Aleisha Morillo MD [address] [place], [place] [phone] Social History Tobacco Use Types Packs/Day Years [...] Pap Smear (04/28/2022 12:00 AM EDT) Swab us Historical Provider LAB CYTOLOGY ORDERABLES F inal Result [facility]ISTORICAL LAB[facility] * Mammography (04/28/2022) Mammogram normal Anatomical Region Laterality Modality Other Historical Provider HEALTH MAINTENANCE Final Result * Colonoscopy (01/13/2019) Colonoscopy Tubular adenoma with Dr. Deluca Historical Provider HEALTH MAINTENANCE Final Result documented in this encounter Visit Diagnoses Not on filedocumented in this encounter Care Teams Supervising Editor Trailer Relationship Specialty Start Date End Date Aleisha Morillo MD [address] [place] [address] PCP - General Family Medicine 07/30/18 Purvi Sahni, YobanyD [address] [place] [address] Pharmacist Internal Medicine 10/26/22 Lester Santana [address] [place] [address] Drive [address] [place] [address] Neurosurgery 06/19/24 Chun Felix MD [address] [place] [phone] Psychiatrist Psychiatry 05/07/24 Amalia Hernandez MD [facility] [address] [facility] Gynecology 06/19/24 HANY Diamond [facility] Gastroenterology [address] [place], [place] [phone] Gastroenterology 07/14/24 [facility] [address] [place], [place] [id number] Optometry 10/29/24 documented as of this encounter
--- OUTSIDE RECORDS SUMMARY | 2025-06-29 17:12 | XMS_ITS | Clinical Summary ---
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 [facility]. -Diabetic foot exam: Done 03/26/24 -Continue lifestyle [...] eye exam: Followed by DR. Munguia and [facility]. Getting established at [facility]. -Diabetic foot exam: Done 03/26/24 -Continue lifestyle modifications -Continue current medications Assessment & Plan (01/10/2023 2:32 PM EDT): Diabetes is controlled. - Lab Results Component Value Date HGBA1C 9.6 (A) 10/05/2022 - Lab Results Component Value Date CREATININE 0.85 07/12/2021 -Changes: -Arnoldo/Arb: Lisinopril 40mg -Statin therapy: Atorvastatin 40mg -Diabetic eye exam: Followed by DR. Munguia and [facility]. -Diabetic foot exam: Done 01/10/2023. -Continue lifestyle modifications -Continue current medications Resolved Problems Problem Noted Date Diagnosed Date Resolved Date Dietary counseling 10/29/2024 Exercise counseling 10/29/2024 02/12/20 25 Hx of sepsis 10/29/2024 02/11/2025 Dysmenorrhea 10/04/2022 01/11/2023 Overview (01/10/2023): Resolved. 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 Severe obesity (CMS/HCC) 07/15/2012 Encounters Date Type Department Care Team Description 06/20/2025 Refill [facility] [address] [place] [address] [phone] Aleisha Morillo MD Primary hypertension; Allergic rhinitis, unspecified seasonality, unspecified trigger 06/12/2025 Orders Only [facility] Information Management [address] [place] [phone] Provider, MD Hiral Polyp of colon, unspecified part of colon, unspecified type (Primary Dx) 06/10/2025 4:00 PM EST Office Visit [facility] [address] [place] [address] Aleisha Morillo MD Type 2 diabetes mellitus with diabetic microalbuminuria, without long-term current use of insulin (HCC) (Primary Dx); Hypertension, unspecified type; Class 3 severe obesity due to excess calories with serious comorbidity and body mass index (BMI) of 45.0 to 49.9 in adult (HCC); Primary tethered cord syndrome (CMS/HCC) (HCC); Obstructive sleep apnea syndrome; Diabetic polyneuropathy associated with type 2 diabetes mellitus (HCC); Recurrent major depressive disorder, in partial remission (CMS/HCC); Other specified health status; Screening for colon cancer; Encounter for immunization; Encounter for vaccination; Urinary incontinence, unspecified type; Concern about memory; Fibromyalgia; Falls; Weakness of both lower extremities 06/10/2025 Travel 06/09/2025 Telephone [facility] [address] [place] [address] [phone] Aleisha Morillo MD chart prep 06/04/2025 Telephone [facility] [address] [place] [address] [phone] Aleisha Morillo MD 05/25/2025 Refill [facility] [address] [place] [address] [phone] Aleisha Morillo MD Wheeze; Primary hypertension; Seasonal allergies; Pain; B12 deficiency; Poorly controlled type 2 diabetes mellitus with neuropathy (HCC); Vitamin D deficiency; Osteoarthritis, unspecified osteoarthritis type, unspecified site 04/23/2025 Refill [facility] [address] [place] [address] [phone] Aleisha Morillo MD 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); Pain 04/17/2025 Refill [facility] [address] [place] [address] [phone] Shavonne Gongora ANP Poorly controlled type 2 diabetes mellitus with neuropathy ([facility]) 04/14/2025 Refill [facility] [address] [place], [place] [phone] Aleisha Morillo MD Poorly controlled type 2 diabetes mellitus with neuropathy ([facility]) 04/03/2025 Telephone [facility] [address] [place] [address] Aleisha Morillo MD from Last 3 Months Immunizations Immunization Administration Dates Next Due Hep A, Adult 03/27/2024,05/18/2023 Hep B, adult 05/30/2019,09/26/2018,11/26/2017 Influenza Injectable Quadriv alant Preservative Free IIV4 MDCK 04/06/2017 Influenza injectable quadriv alent IIV4 with preservative 05/30/2018,04/21/2016,05/27/2015 Influenza injectable quadriv alent preservative free 05/18/2023,09/06/2021,05/30/2019 Influenza, IIV3, injectable 04/20/2024,1 ,05/04/2011,04/25 Influenza, Split (incl. janene fied surface antigen) 05/01/2013 Influenza, seasonal, injecta ble, preservative free 06/10/2025,04/20/2024 Moderna Covid-19 Vaccine 12+ 09/14/2021,12/07/19 21,10/14/2020 Pfizer Covid-19 Vaccine 12+ 06/10/2025, Pneumococcal Conjugate PCV 13 11/26/2017 Pneumococcal Conjugate [...] Sign Reading Time Taken Comments Blood Pressure 130/72 06/10/2025 4:16 PM EST Pulse 112 06/10/2025 4:16 PM EST Temperature 37.2 C (98.9 F) 06/10/2025 4:16 PM EST Respiratory Rate 20 06/10/2025 4:16 PM EST Oxygen Saturation 98% 06/10/2025 4:16 PM EST Inhaled Oxygen Concentration - - Weight 122 kg (269 lb 9.6 oz) 06/10/2025 4:16 PM EST Height 152.4 cm (5') 10/29/2024 9:16 AM EDT Body Mass Index 52.65 10/29/2024 9:16 AM EDT Plan of Treatment Health Maintenance Due Date Last Done Comments CT Colonography 1968 FIT DNA/Cologuard 1968 FIT 1968 FOBT 1970 Sigmoidoscopy 1968 Eye Exam 1978 Dental X-Ray: Full Mouth 01/15/2017 01/14/2014 Dental Prophylaxis 02/13/2017 08/15/2016, 0 02/09/2016, 04/15/2015, Additional history exists RSV Patients and Patients Aged 60 years or older (1 - Risk 50-74 years 1-dose series) 2018 Zoster Vaccines (1 of 2) 2018 Dental Oral Exam 06/08/2019 12/05/2018, 06/2016, 05/27/2015, Additional history exists Dental X-Ray: Bitewings 02/17/2023 02/17/20, 12/05/2018, 02/08/2016, Additional history exists Diagnostic Breast Imaging 07/30/20252024, 08/15/2022, 04/28/2022 Depression Monitoring 08/14/2025 02/11/2025, 024 Diabetes: Hemoglobin A1C 09/10/2025 025, 02/11/2025, 11/19/2024, Additional history exists Alcohol/Substance Use Screening 10/29/2025 10/29/2024 Disability Screening 10/29/2025 10/29/2024 Lipid Panel 11/19/2025 11/19/2024, 02/28, 02/08/2023, Additional history exists Diabetes: Foot Exam 06/10/2026 06/10/2025, 06/10/2025, 06/10/2025, Additional history exists SDOH Screening 06/10/2026 06/10/2025 Tobacco Screening 06/10/2026 06/10/2025 Colonoscopy 06/11/2026 06/11/2025, 01/13/2019 Colorectal Cancer Screening 06/11/2026 Pap Smear 01/16/2027 01/17/2024, 04/30, 04/28/2022, Additional history exists Cervical Cancer Screening 01/16/2029 HPV/Cotest 01/16/2029 01/17/2024, 04/30, 04/28/2022, Additional history exists DTaP/Tdap/Td Vaccines (3 - Td or Tdap) 05/27/2033 05/27/2023, 04/21/2016 Hepatitis B Vaccines Completed 05/30/2019, 09/26/2018, 11/26/2017 HIV Screening Completed 02/08/2023 Colposcopy Completed 01/17/2024 Hepatitis A Vaccines Completed 03/27/2024, 05/18/20 Hepatitis C Screening Completed 03/27/2024, 023 Pneumococcal Vaccine: 50+ Years Completed 10/29/2024, 11/26/2017, 02/13/2007 COVID-19 Vaccine Completed 06/10/2025, 08/2024, 09/14/2021, Additional history exists Influenza Vaccine Completed 06/10/2025, , 04/20/2024, Additional history exists HIB Vaccines Discontinued HPV Vaccines Aged Out No longer eligi [...] Hemoglobin A1c < 7 Result Component 8.5( 5 4:22 PM EST) No Purvi Sahni, PharmD Help patients manage their type 2 [...] task Care Plan Weekly blood pressure task No Aleisha Morillo MD Weekly blood pressure task Care Plan Weekly blood pressure task No Aleisha Morillo MD Patient has chronic kidney disease Care Plan Patient has chronic kidney disease No Aleisha Morillo MD Patient has chronic kidney disease Care Plan Patient has chronic kidney disease No Aleisha Morillo MD Patient has diabetic neuropathy Care Plan Patient has diabetic neuropathy No Aleisha Morillo MD Patient has diabetic neuropathy Care Plan Patient has diabetic neuropathy No Aleisha Morillo MD Weekly blood pressure task Care Plan Weekly blood pressure task No Andrei Iman Weekly blood pressure task Care Plan Weekly blood pressure task No Andrei Iman Weekly blood pressure task Care Plan Weekly blood pressure task No Andrei Iman Patient has chronic kidney disease Care Plan Patient has chronic kidney disease No Andrei, Iman Patient has chronic kidney disease Care Plan Patient has chronic kidney disease No Andrei Iman Patient has chronic kidney disease Care Plan Patient has chronic kidney disease No Andrei Iman Patient has diabetic neuropathy Care Plan Patient has diabetic neuropathy No Andrei Iman Patient has diabetic neuropathy Care Plan Patient has diabetic neuropathy No Andrei Iman Patient has diabetic neuropathy Care Plan Patient has diabetic neuropathy No Andrei, Iman Weekly blood pressure task Care Plan Weekly blood pressure task No Aleisha Morillo MD Weekly blood pressure task Care Plan Weekly blood pressure task No Aleisha Morillo MD Weekly blood pressure task Care Plan Weekly blood pressure task No Aleisha Morillo MD Patient has chronic kidney disease Care Plan Patient has chronic kidney disease No Aleisha Morillo MD Patient has chronic kidney disease Care Plan Patient has chronic kidney disease No Aleisha Morillo MD Patient has chronic kidney disease Care Plan Patient has chronic kidney disease No Aleisha Morillo MD Patient has diabetic neuropathy Care Plan Patient has diabetic neuropathy No Aleisha Morillo MD Patient has diabetic neuropathy Care Plan Patient has diabetic neuropathy No Aleisha Morillo MD Patient has diabetic neuropathy Care Plan Patient has diabetic neuropathy No Aleisha Morillo MD Weekly blood pressure task Care Plan Weekly blood pressure task No Tory Jen Weekly blood pressure task Care Plan Weekly blood pressure task No Tory Jen Weekly blood pressure task Care Plan Weekly blood pressure task No ToryLeonba Patient has chronic kidney disease Care Plan Patient has chronic kidney disease No Tory, Jen Patient has chronic kidney disease Care Plan Patient has chronic kidney disease No Tory, Jen Patient has chronic kidney disease Care Plan Patient has chronic kidney disease No Tory, Jen Patient has diabetic neuropathy Care Plan Patient has diabetic neuropathy No Tory, Jen Patient has diabetic neuropathy Care Plan Patient has diabetic neuropathy No Tory, Jen Patient has diabetic neuropathy Care Plan Patient has diabetic neuropathy No Tory, Jen Procedures Procedure Name Priority Date/Time Associated Diagnosis Comments BI MAMMOGRAM DIAGNOSTIC RIGHT Routine 06/29/2025 1:57 PM EST BI MAMMOGRAM SCREENING TOMOSYNTHESIS BILATERAL Routine 06/12/2025 4:25 PM EST COLONOSCOPY Routine 06/11/2025 POCT GLYCOSYLATED HEMOGLOBIN (HGB A1C) Routine 06/10/2025 4:22 PM EST Type 2 diabetes mellitus with diabetic microalbuminuria, without long-term current use of insulin (HCC) POCT GLUCOSE Routine 06/10/2025 4:22 PM EST Type 2 diabetes mellitus with diabetic microalbuminuria, without long-term current use of insulin (HCC) LIPID PANEL, STANDARD Routine 11/19/2024 2:08 PM EDT 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) HEPATITIS PANEL, GENERAL Routine 03/27/2024 8:56 AM EDT Transaminitis HM PAP/HPV Routine 01/17/2024 COLPOSCOPY Routine 01/17/2024 HIV ANTIBODY/ANTIGEN ([place] DPH) Routine 02/08/2023 2:39 PM EDT BITEWING - SINGLE RADIOGRAPHIC IMAGE Routine 02/16/2022 12:00 AM EDT PERIODIC ORAL EVALUATION - ESTABLISHED PATIENT Routine 12/05/2018 12:00 AM EDT PROPHYLAXIS - ADULT Routine 08/15/2016 1 2:00 AM EST INTRAORAL - COMPLETE SERIES OF RADIOGRAPHIC IMAGES Routine 01/14/2014 12:00 AM EDT from Last 3 Months or Most Recently Relevant to Health Maintenance Results * Mammogram Diagnostic Right (06/29/2025 1:57 PM EST) Anatomical Region Laterality Modality Breast Right Mammography 06/29/2025 1:57 PM EST Narrative 06/29/2025 2:26 PM EST [facility] [address] [place], [place] [address] Mammography Report Signed Patient: Becky Springer MR#: [id number] 643 : 1970 Acct:[id number] Age/Sex: 54 / F ADM Date: 06/29/25 Loc: HO.MAMMO Attending Dr: Aleisha Morillo MD Ordering Physician: Aleisha Morillo MD Results: 2B enign Date of Service: 06/29/25 Follow Up: 1 Year From Orig ina Mammogram Procedure(s): MM diagnostic mammo unilat RT Accession Number(s): [id number] cc: Aleisha Morillo MD Reason For Exam: [...] by: Malina Benites MD 06/29/2025 02:24 PM [facility] Dictated By: Malina Benites MD Signed By: <Electronically signed by Malina Benites MD in OV> 06/29/25 1424 DD/ 1357 TD/TT: 06/29/25 1402 Dandy Operator: Procedure Note Donotuseinterpreter, Image - 06/29/2025 [facility] [address] [place] [address] Mammography Report Signed Patient: Dandy Springer#: [id number] [id number] : 1970Acct:[id number] Age/Sex: 54 / FADM Date: 06/29/25 Loc: HO.MAMMO Attending Dr: Aleisha Morillo MD Ordering Physician: Aleisha Morillo MDResults: 2B enign Date of Service: 06/29/25Follow Up: 1 Year From Orig inal Mammogram Procedure(s): MM diagnostic mammo unilat RT Accession Number(s): [id number] cc: Aleisha Morillo MD Reason For Exam: [...] 06/29/25 1424 DD/ 1357 TD/TT: 06/29/25 1402 Dandy Operator: us Aleisha Morillo MD IMG BI PROCEDURES Final Re sult * BI Mammogram Screening Tomosynthesis Bilateral (06/12/2025 4:25 PM EST) Anatomical Region Laterality Modality Breast Bilateral Mammography 06/12/2025 4:25 PM EST Narrative 06/16/2025 6:43 PM EST [facility] [address] [place] [address] Mammography Report Signed Patient: Becky Springer MR#: [id number] [id number] : 1970 Acct:[id number] Age/Sex: 54 / F ADM Date: 06/12/25 Loc: HO.MAMMO Attending Dr: Aleisha Morillo MD Ordering Physician: Aleisha Morillo MD Results: 0I ncomplete- Need Additional Imaging Evaluation Date of Service: 06/12/25 Follow Up: Additional Imagi ng Procedure(s): MM tomosynthesis screening BI Accession Number(s): [id number] cc: Aleisha Morillo MD Reason For Exam: [...] by: Sharonda Sherwood DO 06/16/2025 06:40 PM [facility] Dictated By: Sharonda Sherwood DO Signed By: <Electronically signed by Sharonda Sherwood DO in OV> 06/16/25 1840 DD/ 1625 TD/TT: 06/12/25 1637 Dandy Operator: Procedure Note Donotuseinterpreter, Image - 06/16/2025 [facility] [address] [place], [place] [address] Mammography Report Signed Patient: Dandy Springer#: [id number] 643 : 1970Acct:[id number] Age/Sex: 54 / FADM Date: 06/12/25 Loc: HO.MAMMO Attending Dr: Aleisha Morillo MD Ordering Physician: Aleisha Morillo MDResults: 0I ncomplete- Need Additional Imaging Evaluation Date of Service: 06/12/25Follow Up: Additional Imagi ng Procedure(s): MM tomosynthesis screening BI Accession Number(s): [id number] cc: Aleisha Morillo MD Reason For Exam: [...] by: Sharonda Sherwood DO 06/16/2025 06:40 PM EST Dictated By: Sharonda Sherwood DO Signed By: <Electronically signed by Sharonda Sherwood DO in OV> 06/16/25 1840 DD/ 1625 TD/TT: 06/12/25 1637 Dandy Operator: Aleisha Morillo MD IMG BI PROCEDURES Final Re sult * Colonoscopy (06/11/2025) Anatomical Region Laterality Modality Endoscopy Historical Provider ENDOSCOPY PROCEDURE ORDER SHARA Final Result * (ABNORMAL) POCT glycosylated hemoglobin (Hgb A1c) (06/10/2025 4:22 PM EST) Hemoglobin A1C 8.5(A) 4.0 - 5.7 % QC Media Lot # [id number] Lot# Expiration Date 537,314 Blood Capillary blood specimen / Unknown 06/10/2025 4:22 PM EST us Aleisha Morillo MD POINT OF CARE TEST ENTER/E DIT ORDERABLES Final Result * (ABNORMAL) POCT glucose manually resulted (06/10/2025 4:22 PM EST) Glucose Blood, POC 302(A) 60 - 200 mg/dL QC Media Lot # [id number] Lot# Expiration Date [id number] Blood Capillary blood specimen / Unknown 06/10/2025 4:22 PM EST us Aleisha Morillo MD POINT OF CARE TEST ENTER/E DIT ORDERABLES Final Result * (ABNORMAL) Lipid Panel, Standard (11/19/2024 2:08 PM EDT) Triglycerides 202(H) <150 mg/dL [facility] Comment:Desirable Triglyceri de: less than 150 mg/dLBorderline High Triglyceride 150-199 mg/dLHigh Triglyceride: 200-499 mg/dLVery High Triglyceride: greater than or equal to 5OO mg/dL Cholesterol 234(H) <200 mg/dL [facility] Comment:Desirable Cholestero l: less than 200 mg/dLBorderline High Cholesterol: 200-239 mg/dLHigh Cholesterol: greater than 239 mg/dL LDL Cholesterol Calculated 135(H) <100 mg/dL [facility] Comment:Desirable LDL: less than 100 mg/dLNear Optimal/Above Optimal LDL: 110- 129 mg/dLBorderline High LDL: 130-159 mg/dLHigh LDL: 160-189 mg/dLVery High LDL: greater than or equal to 190 mg/dL HDL Cholesterol 59 >40 mg/dL [facility] Comment:Desirable HDL: great er than 40 mg/dL Note: This HDL assay may give artificially low results in patients with liver disease. Blood Venous blood specimen / Unknown 11/19/2024 2:08 PM EDT 11/19/2024 3:53 PM EDT us Aleisha Morillo MD LAB BLOOD ORDERABLES Final Result Performing Organization Address [facility] Co de Phone Number [facility] [address] [place] [address] [phone] * Hepatitis Panel, General (03/27/2024 8:56 AM EDT) Pathologist [facility] Hepatitis A IgM Nonreactive Nonreactive [facility] Comment:IgM antibodies to MYERS V not detected; does not exclude earlyacute or recovered HAV infection. ~Hepatitis B Surface Antibody NONREACTIVE Nonreactive [facility] Comment:Nonreactive: < 8.00 mIU/mL Hepatitis B Core Antibody Nonreactive Nonreactive [facility] Hepatitis C Antibody Nonreactive Nonreactive [facility] Comment:Antibodies to HCV no t detected; does not exclude early acuteHCV infection. Hepatitis B Surface Ag Negative Negative [facility] Blood Venous blood specimen / Unknown 03/27/2024 8:56 AM EDT 03/27/2024 11:05 AM EDT Aleisha Morillo MD LAB BLOOD ORDERABLES Final Result Performing Organization Address [facility] Co de Phone Number [facility] [address] [place] [address] [phone] * Colposcopy (01/17/2024) Historical Provider IN CLINIC/BEDSIDE ORDERAB LES Final Result * (ABNORMAL) HM PAP/HPV (01/17/2024) [facility] Pap Smear 1. NILM 1. NILM HPV Detected(A ) Undetected, Indeterminate , Quantitative, Not Detected Historical Provider HEALTH MAINTENANCE Final Result * HIV Ab/Ag (JONATHAN MENDIOLA) (02/08/2023 2:39 PM EDT) [facility] HIV AB/AG Nonreactive Nonreactive [facility] Comment:HIV-1 p24 Ag and/or HIV-1/HIV-2 Ab not detected.A test result that is nonreactive does not exclude thepossibility of exposure to or infection with HIV-1 and/orHIV-2. Nonreactive results in this assay for individualswith prior exposure to HIV-1 and/or HIV-2 may be due toantigen and antibody levels that are below the limit ofdetection of this assay.[employer] HIV Ag/Ab Combo assay result andsupplemental assay results should be interpreted inconjunction with the patient's clinical presentation,history and other laboratory results. If the results areinconsistent with clinical evidence, additional testing issuggested to confirm the result. 02/08/2023 2:39 PM EDT 02/08/2023 4:25 PM EDT [facility] External Provider LAB BLO OD ORDERABLES Final Result [facility] [address] [place] [phone] from Last 3 Months or Most Recently Relevant to Health Maintenance Additional Health Concerns Active Problems Noted Date [...] neuropathy 06/10/2025 Patient has diabetic neuropathy 06/10/2025 Weekly blood pressure task 06/15/2025 Weekly blood pressure task 06/15/2025 Weekly blood pressure task 06/15/2025 Patient has chronic kidney disease 06/15/2025 Patient has chronic kidney disease 06/15/2025 Patient has chronic kidney disease 06/15/2025 Patient has diabetic neuropathy 06/15/2025 Patient has diabetic neuropathy 06/15/2025 Patient has diabetic neuropathy 06/15/2025 Weekly blood pressure task 06/16/2025 Weekly blood pressure task 06/16/2025 Weekly blood pressure task 06/16/2025 Patient has chronic kidney disease 06/16/2025 Patient has chronic kidney disease 06/16/2025 Patient has chronic kidney disease 06/16/2025 Patient has diabetic neuropathy 06/16/2025 Patient has diabetic neuropathy 06/16/2025 Patient has diabetic neuropathy 06/16/2025 Weekly blood pressure task 06/17/2025 Weekly blood pressure task 06/17/2025 Weekly blood pressure task 06/17/2025 Patient has chronic kidney disease 06/17/2025 Patient has chronic kidney disease 06/17/2025 Patient has chronic kidney disease 06/17/2025 Patient has diabetic neuropathy 06/17/2025 Patient has diabetic neuropathy 06/17/2025 Patient has diabetic neuropathy 06/17/2025 Insurance [facility] C3 DENTAL-[facility] MEDICAID STAND ADULT Advance Directives Documents on File Type Date Recorded Patient Leadership Program Associate Expl anation Advance Directives and Living Will 03/27/2024 Health Care Proxy 03/27/24 Care Teams Edge Beader Relationship Specialty Start Date End Date Delta, MD Aleisha [address] [place] [address] PCP - General Family Medicine 07/30/18 Purvi Sahni, PharmD [address] [place] [phone] Pharmacist Internal Medicine 10/26/22 Lester Santana [address] [place] [address] Drive [address] [place], [place] Neurosurgery 06/19/24 Chun Felix MD [address] [place] [phone] Psychiatrist Psychiatry 05/07/24 Amalia Hernandez MD [address] Gynecology 06/19/24 HANY Diamond [facility] Gastroenterology [address] [place] [phone] Gastroenterology 07/14/24 [facility] [address] [place] [address] Optometry 10/29/24
--- OUTSIDE RECORDS SUMMARY | 2025-06-29 17:12 | XMS_ITS | Encounter Summary ---
Author Organization [employer] [facility] Address [address] [facility] [place] [address] Care Team Providers Care Rework Machine Operator Name Role Phone Aleisha Morillo MD Primary Care Provider [phone] Puvri Sahni PharmD Unavailable [phone] Lester Santana Unavailable Reason for Visit * Reason Comments Med Refill Encounter Details Date Type Department Care Team (Late st Contact Info) Description 10/10/2022 Refill [facility] [address] [place], [place] [phone] Aleisha Morillo MD [address] [place], [place] [phone] Mild intermittent asthma without complication Social History [...] documented as of this encounter Care Teams Rework Machine Operator Relationship Specialty Start Date End Date Aleisha Morillo MD [address] [place] [address] PCP - General Family Medicine 07/30/18 Purvi Sahni, Christine [address] [place] [address] Pharmacist Internal Medicine 10/26/22 Lester Santana [address] [place] [address] Drive [address] [place], [place] Neurosurgery 06/19/24 Chun Felix MD [address] [place] [phone] Psychiatrist Psychiatry 05/07/24 Amalia Hernandez MD [address] Gynecology 06/19/24 HANY Diamond [facility] Gastroenterology [address] [place] [address] [phone] Gastroenterology 07/14/24 [facility] [address] [place] [address] Optometry 10/29/24 documented as of this encounter
--- OUTSIDE RECORDS SUMMARY | 2025-06-29 17:12 | XMS_ITS | Encounter Summary ---
Author Organization [employer] Address 75 [facility] 7t [place] [address] Care Team Providers Care Tongue Binder Name Role Phone Aleisha Morillo MD Primary Care Provider +- [phone] Purvi Sahni PharmD Unavailable +1- [phone] Lester Santana Unavailable Reason for Visit * Reason Onset Date Comments fORM eRROR 11/21/2022 Encounter Details Date Type Department Care Team ([facility] st Contact Info) Description 11/21/2022 Telephone [facility] MEDICINE 230 [place], [place] [phone] Aleisha Morillo MD 230 [place] [address] fORM eRROR Social History Tobacco Use Types [...] encounter Miscellaneous Notes * Telephone Encounter - Bonxavier Weirpardeep Browning - 11/21/2022 2:55 PM EDT Tc from pt requesting for facility to give a call to L&C ( [phone]) in regards for orders for the Bed Pads, Adult ( XL ) Pull ups, and liners, pt states L&C informs somethings were missing and were incorrectly. Please contact pt if any questions at [phone] Montserratian Speaker documented in this encounter Plan of Treatment Not on file documented as of this encounter Visit Diagnoses Not on filedocumented in this encounter Additional Health Concerns Assessment Noted Time PHQ-9 Depression Total Score: 0 10/06/19 23 1:30 PM EST documented as of this encounter Care Teams Tongue Binder Relationship Specialty Start Date End Date Aleisha Morillo MD [address] [place] [address] PCP - General Family Medicine 07/30/18 Purvi Sahni, PharmD [address] [place] [address] Pharmacist Internal Medicine 10/26/22 Lester Santana [address] [place] [address] Drive [address] [place], [place] Neurosurgery 06/19/24 Chun Felix MD [address] [place] [address] Psychiatrist Psychiatry 05/07/24 Amalia Hernandez MD [address] Gynecology 06/19/24 HANY Diamond [facility] Gastroenterology [address] [place] [address] Gastroenterology 07/14/24 [facility] 3640 [place], [place] [phone] Optometry 10/29/24 documented as of this encounter
--- OUTSIDE RECORDS SUMMARY | 2025-06-29 17:12 | XMS_ITS | Encounter Summary ---
Author Organization [employer] Address 75 [facility] 7t [place] [address] Care Team Providers Care Beef Cattle Farmer Name Role Phone Aleisha Morillo MD Primary Care Provider +- [phone] Purvi Sahni PharmD Unavailable +1- [phone] Lester Santana Unavailable Encounter Details Date Type Department Care Team (Late st Contact Info) Description 07/10/2024 Orders Only [facility] MEDICINE 230 [place], [place] [phone] Aleisha Morillo MD 230 [place], [place] [phone] Mood disorder (CMS/HCC) (Primary Dx); Other migraine [...] 8.5(06/10/2025 4:22 PM EST) No Purvi Sahni, YobanyD documented as of this encounter Visit Diagnoses Diagnosis Mood disorder (CMS/[facility])- Primary Unspecified episodic mood disorder Other migraine without status migrainosus, not intractable Gastroesophageal reflux disease, unspecified whether esophagitis present documented in this encounter Additional Health Concerns Assessment Noted Time PHQ-9 Depression Total Score: 15 024 9:18 AM EDT documented as of this encounter Care Teams Beef Cattle Farmer Relationship Specialty Start Date End Date Aleisha Morillo MD 230 [place] [address] PCP - General Family Medicine 07/30/18 Purvi Sahni, YobanyD 230 [place] [address] Pharmacist Internal Medicine 10/26/22 Lester Santana [address] [place] [address] Drive [address] [place], [place] Neurosurgery 06/19/24 Chun Felix MD [address] [place] [address] Psychiatrist Psychiatry 05/07/24 Amalai Hernandez MD [facility] 3300 [facility] Gynecology 06/19/24 HANY Diamond [facility] Gastroenterology [address] [place] [address] Gastroenterology 07/14/24 [facility] 3640 [place] [address] Optometry 10/29/24 documented as of this encounter
--- OUTSIDE RECORDS SUMMARY | 2025-06-29 17:12 | XMS_ITS | Encounter Summary ---
Author Organization [employer] Address 75 [facility] 7t [place] [address] Care Team Providers Care Journeyman Press Operator Name Role Phone Aleisha Morillo MD Primary Care Provider +- [phone] Purvi Sahni PharmD Unavailable +1- [phone] Lester Santana Unavailable Reason for Visit * Reason Onset Date Comments rs no show visit 10/15/2024 Encounter Details Date Type Department Care Team (Late st Contact Info) Description 10/15/2024 Telephone [facility] 230 [place], [place] [phone] Givens-Magali Mendoza, DDS [address] [place], [place] [phone] rs no show visit Social History Tobacco [...] documented as of this encounter Care Teams Journeyman Press Operator Relationship Specialty Start Date End Date Aleisha Morillo MD [address] [place] [address] PCP - General Family Medicine 07/30/18 Purvi Sahni PharmD [address] [place] [address] Pharmacist Internal Medicine 10/26/22 Lester Santana [address] [place] [address] Drive [address] [place], [place] Neurosurgery 06/19/24 Chun Felix MD [address] [place] [address] Psychiatrist Psychiatry 05/07/24 Amalia Hernandez MD [facility] [address] [place] [address] Gynecology 06/19/24 HANY Diamond [facility] Gastroenterology 3300 [place] [address] Gastroenterology 07/14/24 [facility] 3640 [place] [address] Optometry 10/29/24 documented as of this encounter
--- OUTSIDE RECORDS SUMMARY | 2025-06-29 17:12 | XMS_ITS | Encounter Summary ---
Author Organization [employer] [facility] Address 75 [facility] 7t [place] [address] Care Team Providers Care Personnel Specialist Name Role Phone Aleisha Morillo MD Primary Care Provider +- [phone] Purvi Sahni PharmD Unavailable +1- [phone] Lester Santana Unavailable Encounter Details Date Type Department Care Team (Late st Contact Info) Description 02/26/2023 Abstract [facility] MEDICINE 230 [place], [place] [phone] Aleisha Morillo MD 230 [place], [place] [phone] Social History Tobacco Use Types Packs/Day Years [...] documented as of this encounter Care Teams Personnel Specialist Relationship Specialty Start Date End Date Aleisha Morillo MD 230 [place] [address] PCP - General Family Medicine 07/30/18 Purvi Sahni PharmD 230 [place] [address] Pharmacist Internal Medicine 10/26/22 Lester Santana [address] [place] [address] Drive [address] [place], [place] Neurosurgery 06/19/24 Chun Felix MD [address] [place] [address] Psychiatrist Psychiatry 05/07/24 Amalia Hernandez MD [address] Gynecology 06/19/24 HANY Diamond [facility] Gastroenterology [address] [place] [phone] Gastroenterology 07/14/24 [facility] 3640 [place], [place] [phone] Optometry 10/29/24 documented as of this encounter
--- OUTSIDE RECORDS SUMMARY | 2025-06-29 17:12 | XMS_ITS | Encounter Summary ---
Author Organization [facility] Address 75 [facility] 7t [place] [address] Care Team Providers Care Block Hand Name Role Phone Aleisha Morillo MD Primary Care Provider +- [phone] Purvi Sahni PharmD Unavailable +1- [phone] Lester Santana Unavailable Encounter Details Date Type Department Care Team (Late st Contact Info) Description 10/31/2022 Telephone [facility] MEDICINE 230 [place], [place] [phone] Aleisha Morillo MD 230 [place], [place] [phone] Social History Tobacco Use Types Packs/Day Years [...] documented as of this encounter Care Teams Block Hand Relationship Specialty Start Date End Date Aleisha Morillo MD 230 [place] [address] PCP - General Family Medicine 07/30/18 Purvi Sahni PharmD 230 [place] [address] Pharmacist Internal Medicine 10/26/22 Lester Santana [address] [place] [address] Drive [address] [place], [place] Neurosurgery 06/19/24 Chun Felix MD [address] [place] [address] Psychiatrist Psychiatry 05/07/24 Amalia Hernandez MD [address] Gynecology 06/19/24 HANY Diamond [facility] Gastroenterology [address] [place] [address] Gastroenterology 07/14/24 [facility] 3640 [place] [address] Optometry 10/29/24 documented as of this encounter
--- OUTSIDE RECORDS SUMMARY | 2025-06-29 17:12 | XMS_ITS | Encounter Summary ---
Author Organization [employer] Address 75 [facility] 7t [place] [address] Care Team Providers Care Program Clinician Name Role Phone Aleisha Morillo MD Primary Care Provider +1- [phone] Purvi Sahni PharmD Unavailable +1- [phone] Lester Santana Unavailable Reason for Visit * Reason Onset Date Comments Durable Medical Equipment 11/01/2022 Encounter Details Date Type Department Care Team (Late st Contact Info) Description 11/01/2022 Telephone [facility] MEDICINE 230 [place], [place] [phone] Aleisha Morillo MD 230 [place], [place] [phone] Durable Medical Equipment Social History Tobacco Use [...] for refills on wipes and pads at [phone]. All paperwork was processed in August 2022. [...] as of this encounter Care Teams Program Clinician Relationship Specialty Start Date End Date Aleisha Morillo MD [address] [place] [address] PCP - General Family Medicine 07/30/18 Purvi Sahni, YobanyD [address] [place] [address] Pharmacist Internal Medicine 10/26/22 Lester Santana [address] [place] [address] Drive [address] [place], [place] Neurosurgery 06/19/24 Chun Felix MD [address] [place] [address] Psychiatrist Psychiatry 05/07/24 Amalia Hernandez MD [address] Gynecology 06/19/24 HANY Diamond [facility] Gastroenterology [address] [place] [address] Gastroenterology 07/14/24 [facility] [place] [address] Optometry 10/29/24 documented as of this encounter
--- OUTSIDE RECORDS SUMMARY | 2025-06-29 17:12 | XMS_ITS | Encounter Summary ---
Author Organization [employer] Address 75 [facility] 7t [place] [address] Care Team Providers Care Java Support Engineer Name Role Phone Aleisha Morillo MD Primary Care Provider +- [phone] Purvi Sahni PharmD Unavailable +1- [phone] Lester Santana Unavailable Reason for Visit * Reason Comments Med Refill Encounter Details Date Type Department Care Team (Late st Contact Info) Description 11/28/2024 Refill [facility] MEDICINE 230 [place], [place] [phone] Aleisha Morillo MD 230 [place], [place] [phone] Mild intermittent asthma without complication Social History [...] documented as of this encounter Care Teams Java Support Engineer Relationship Specialty Start Date End Date Aleisha Morillo MD 230 [place] [address] PCP - General Family Medicine 07/30/18 Purvi Sahni, PharmD 230 [place] [address] Pharmacist Internal Medicine 10/26/22 Lester Santana [address] [place] [address] Drive [address] [place], [place] Neurosurgery 06/19/24 Chun Felix MD [address] [place] [address] Psychiatrist Psychiatry 05/07/24 Amalia Hernandez MD [facility] 3300 [facility] Gynecology 06/19/24 HANY Diamond [facility] Gastroenterology 3300 [place] [address] Gastroenterology 07/14/24 [facility] 3640 [place] [address] Optometry 10/29/24 documented as of this encounter
--- OUTSIDE RECORDS SUMMARY | 2025-06-29 17:12 | XMS_ITS | Encounter Summary ---
Author Organization [employer] [facility] Address 75 [facility] 7t [place] [address] Care Team Providers Care Professional Nursing Tutor Name Role Phone Aleisha Morillo MD Primary Care Provider +- [phone] Purvi Sahni PharmD Unavailable +1- [phone] Lester Santana Unavailable Reason for Visit * Reason Comments Med Refill Encounter Details Date Type Department Care Team (Late st Contact Info) Description 04/22/2023 Refill [facility] MEDICINE 230 [place], [place] [phone] Karin Winter MD 230 [place], [place] [phone] Pain Social History Tobacco Use Types Packs/Day [...] Result Component 8.5(06/10/2025 4:22 PM EST) No Jose RaulsPurvi Melgar, PharmD documented as of this encounter Visit Diagnoses Diagnosis Pain Generalized pain documented in this encounter Additional Health Concerns Assessment Noted Time PHQ-9 Depression Total Score: 0 10/06/19 23 1:30 PM EST documented as of this encounter Care Teams Professional Nursing Tutor Relationship Specialty Start Date End Date Aleisha Morillo MD 230 [place] [address] PCP - General Family Medicine 07/30/18 Purvi Sahni PharmD 230 [place] [address] Pharmacist Internal Medicine 10/26/22 Lester Santana [address] [place] [address] Drive [address] [place], [place] Neurosurgery 06/19/24 Chun Felix MD [address] [place] [address] Psychiatrist Psychiatry 05/07/24 Amalia Hernandez MD [address] Gynecology 06/19/24 HANY Diamond [facility] Gastroenterology [address] [place] [address] Gastroenterology 07/14/24 [facility] 3640 [place], [place] [phone] Optometry 10/29/24 documented as of this encounter
== END 2025-06-29 13:38 | disposition home or self-care (01) ==
LOC: HO.MAMMO 13:37
PROVIDERS: PCP Family Medicine; Visit Provider Family Medicine
DX: Z12.31 Encounter for screening mammogram for malignant neoplasm of breast (principal)
CPT/HCPCS: 77062; 77065

== ENCOUNTER → 2025-06-29 14:00 | Outpatient (BNV) | payer MEDICAID, SELFPAY | PROVIDERS: PCP Family Medicine; Visit Provider Radiology Body Imaging | DX: R92.8 Other abnormal and inconclusive findings on diagnostic imaging of breast (principal) | CPT/HCPCS: 77061; 77065 ==